=== PATIENT | female | born 1940 | race Caucasian/White ===

== ENCOUNTER 2018-12-15 14:20 | Inpatient (IN) ==
[2018-12-15] MEDS ORDERED: DECADRON IM ONE (15:12)
--- NOTE | 2018-12-15 15:33 | Diag Imaging Result Doc PS360 ---
EXAM: NECK AP AND/OR LAT SOFT TISSUE 12/15/2018 HISTORY: Difficulty swallowing/pain TECHNIQUE: AP and lateral soft tissue neck COMMENT: The epiglottis is apparently enlarged, and there may be thickening of the area epiglottic folds as well. There is narrowing of the subglottic trachea. There is a is a calcified mass apparently within the right thyroid lobe (see CT of the chest dated 08/12/2018.) There are degenerative disc changes in the lower cervical spine. IMPRESSION: Soft tissue swelling in the epiglottis and larynx. The possibility of epiglottitis or neoplastic disease cannot be excluded. Electronically signed by Tyler Ahmadi 12/15/2018 3:30 PM
--- NOTE | 2018-12-15 16:21 | PROVIDER DOCUMENTATION ---
HPI-EENT General - General Chief Complaint: Sore Throat Stated Complaint: SORE THROAT Time Seen by Provider: 12/15/18 14:57 Source: patient Allergies/Adverse Reactions: Patient Allergies Allergy/AdvReac Type Severity Reaction Status Date / Time Sulfa (Sulfonamide Allergy Mild RASH Verified 12/15/18 15:31 Antibiotics) Home Medications: Home Medication List Medication Instructions Recorded Confirmed Last Taken Type Amlodipine [Norvasc] 5 mg PO DAILY 01/05/16 01/05/16 01/04/16 23:00 History 5 Baclofen 10 mg PO BID 01/05/16 01/05/16 01/04/16 23:00 History 10 Calcium Carbonate Chew [Tums] 500 mg PO TID 01/05/16 01/05/16 01/04/16 12:00 History 500 Cholecalciferol (Vit D3) [Vitamin 1,000 tab PO TID 01/05/16 01/05/16 01/04/16 12 :00 History D3] 1000 Cinnamon Bark [Cinnamon] 500 mg PO DAILY 01/05/16 01/05/16 01/04/16 07:00 History 500 Clonidine [Catapres] 0.2 mg PO TID 01/05/16 01/05/16 01/04/16 23:00 History 0.2 Duloxetine [Cymbalta] 60 mg PO BID 01/05/16 01/05/16 01/04/16 23:00 History 60 Esomeprazole [Nexium] 40 mg PO DAILY 01/05/16 01/05/16 01/02/16 History 40 Furosemide 80 mg PO DAILY 01/05/16 01/05/16 01/04/16 07:00 History 80 Glucosamine/D3/Boswellia Purvi 1 each PO BID 01/05/16 01/05/16 01/04/16 23:00 History [Osteo Bi-Flex Caplet] 1 Lamotrigine 100 mg PO BID 01/05/16 01/05/16 01/04/16 23:00 History 100 Levothyroxine [Synthroid] 100 microgm PO DAILY 01/05/16 01/05/16 01/04/16 07:00 History 100 Loratadine [Claritin] 10 mg PO DAILY 01/05/16 01/05/16 01/04/16 07:00 History 10 Losartan [Cozaar] 100 mg PO DAILY 01/05/16 01/05/16 01/04/16 23:00 History 100 Metformin [Glucophage] 500 mg PO BID 01/05/16 01/05/16 01/04/16 23:00 History 500 Carnegie-3 Fatty Acids/Fish Oil [Fish 1 each PO BID 01/05/16 01/05/16 01/04/16 23: 00 History Oil 1,000 mg Softgel] 1000 Potassium Citrate 10 meq PO TID 01/05/16 01/05/16 01/04/16 23:00 History 10 SIMVAstatin [Zocor] 40 mg PO QHS 01/05/16 01/05/16 01/04/16 23:00 History 40 Ubidecarenone [Q-Sorb Co Q-10] 0 mg PO DAILY 01/05/16 01/05/16 01/04/16 07:00 History Vitamin B Complex 1 each PO DAILY 01/05/16 01/05/16 01/04/16 07:00 History 1 - History of Present Illness-EENT General Nature of Presenting Problem: Patient is a 78yo F who presents w/ c/o sore throat, ear pain, low grade fever, cough, and body aches x3 days. Reports she was able to swallow, with pain, but reports this morning it worsened and she is not able to swallow anything without "getting strangled." Patient reports difficulty swallowing even saliva. Reports she was not able to swallow both of her BP medications this morning. States unti l today, she was taking OTC Tylenol and Mucinex without improvement. Patient reports she does not feel like she is getting enough air. Upon examination, patient attempts to swallow a sip of tea she brought from home, but experiences a moderate amount of difficulty and EENT Location: reports: ear (R), ear (L), facial Quality of Pain: reports: tightness Severity: reports: moderate Onset/Duration: reports: 3 days ago Timing: reports: getting worse Prearrival Treatment: Initiated over the counter meds Associated Symptoms: reports: cough, fever, malaise, sore throat. denies: nasal congestion/drainage Locality of Occurance: Home Similar Symptoms Previously?: No Recently seen or treated by another doctor?: No - Ears Ear Problem Symptoms: reports: earache - Throat/Dental Throat/Dental Problem Symptoms: reports: sore throat, throat swelling, unable to swallow Review of Systems - Adult - REVIEW OF SYSTEMS - ADULT Constitutional: reports: see HPI, chills, fever, fatique Eyes: reports: no symptoms reported Ears, Nose, Mouth & Throat: reports: see HPI, ear pain, throat pain, throat swelling Cardiovascular: reports: no symptoms reported. denies: chest pain, palpitations Respiratory: reports: see HPI, cough, shortness of breath Gastrointestinal: reports: no symptoms reported. denies: nausea, vomiting Genitourinary: reports: no symptoms reported Musculoskeletal: reports: no symptoms reported Integumentary: reports: no symptoms reported Neurological: reports: no symptoms reported. denies: dizziness/vertigo, headache/migraines Psychiatric: reports: no symptoms reported Endocrine: reports: no symptoms reported Past History - Adult - PAST MEDICAL HISTORY-ADULT Review of Records: reports: Nursing Assessment Review, Medications Reviewed Major Childhood Illnesses: reports: denies history Cardiovascular: reports: HTN Respiratory: reports: denies history Gastrointestinal: reports: denies history Obstetrical/Gynecological: reports: denies history Genitourinary: reports: other (renal disease) Musculoskeletal: reports: denies history Neurological: reports: denies history Endocrine/Immune: reports: Diabetes Other Conditions: reports: denies history - PRIOR SURGERIES/PROCEDURES Surgical/Procedure History: reports: cholecystectomy, hysterectomy, other (back, foot) - IMMUNIZATION STATUS Childhood Immunizations: See Nurse Assessment Flu Vaccine: See Nurse Assessment - FAMILY HISTORY Family History: reviewed, not pertinent - SOCIAL HISTORY Smoking: quit greater than 1 year Physical Exam- EENT - Physical Exam EENT Initial Vital Signs Reviewed: Yes General Appearance: alert, mild distress. negative: lethargic, slow to respond, obtunded Eye Exam: bilateral eye: normal inspection, PERRL, EOMI Ear Exam: bilateral ear: auricle normal, canal normal, TM normal Nasal Exam: normal inspection Throat Exam: pharynx swelling (mild), other (pt experiences moderate amount of difficulty swallowing drink/saliva). negative: excessive drooling, tongue swollen Neck: full range of motion, supple, normal inspection, lymphadenopathy Respiratory: lungs clear, normal breath sounds, no pleuratic chest pain, no respiratory distress, no accessory muscle use. negative: crackles, rales, rhonchi, stridor, wheezing, retractions, splinting Cardiovascular: regular rate, rhythm, no gallop Lymphatic: cervical node tenderness, enlargement (cervical) Back Exam: normal inspection Extremity: normal range of motion, normal gait Integumentary: normal color, warm/dry. negative: cyanosis, jaundice, pallor Neurologic: grossly normal Psych/Mental Status: normal mood/affect, normal thought content, normal thought process, oriented x 3 Progress - PLAN OF CARE/RESULTS Progress/Plan/Lab Results: Vital Signs - 8 hr 12/15/18 14:32 12/15/18 16:28 12/15/18 16:32 Temperature 98.9 F Pulse Rate 92 H 95 H 89 Respiratory Rate 20 26 H 26 H Blood Pressure 156/79 212/93 196/96 O2 Sat by Pulse Oximetry 93 L 96 94 L 12/15/18 16:36 Temperature Pulse Rate 88 Respiratory Rate 23 Blood Pressure O2 Sat by Pulse Oximetry 97 12/15/18 14:33 Group A Strep Rapid Antigen - Final Throat Orders Category Date Time Status Cardiac Monitoring DIRECTED Care 12/15/18 16:22 Active Oxygen Therapy- ED Nursing DIRECTED Care 12/15/18 16:22 Active NPO Diet 12/15/18 16:[address] NECK W/O CONTRAST [CT] Stat Exams 12/15/18 17:27 Ordered NECK AP AND/OR LAT SOFT TISSUE [RAD] Stat Exams 12/15/18 15:13 Completed BLOOD CULTURE [BLDCUL] Stat Lab 12/15/18 17:19 Ordered CBC WITH ELECTRONIC DIFF [HEME] Stat Lab 12/15/18 17:19 Ordered COMPREHENSIVE METABOLIC PANEL [CHEM] Stat Lab 12/15/18 16:40 Ordered Strep [DIRECT STREP] Stat Lab 12/15/18 14:33 Completed Dexamethasone [Decadron] Med 12/15/18 15:12 Discontinued 10 mg IM NOW ONE Racepinephrine 2.25% [S2 Racepinephrine 2.25%] Med 12/15/18 16:28 Discontinued 1 each INH NOW ONE Sodium Chloride 0.9% Neb [Ns Neb] Med 12/15/18 16:30 Active 5 ml INH DIRECTED Aerosol Treatments Routine Oth 12/15/18 16:29 Completed Aerosol Treatments Stat Oth 12/15/18 16:29 Completed 1552: Soft tissue x-ray demonstrates epiglottitis and tracheal narrowing. Report discussed with Dr. Murry. Patient given 10mg of IM Decadron and ENT paged. 1632: Dr. Page paged. 2531: Dr. Page at bedside. Result Diagrams: 12/15/18 17:10 - XRAY 1 XRAY: Bilateral XRAY Study: other (Soft Tissue Neck) Impression: See EMR Report ([facility] - [address] , [address], [place] [address] [facility] - [address] [place] [address] Department of Imaging Patient: HUNTER ZAPATA Date: 12/15/18MR#: [id number] : 1940DM Status: PRE ERAcct#: [id number] Age/Sex: 78/FRoom/Bed: Loc: ED Ordering Physician: Tiffani Eubanks Family Ph ysician: Jorge Page MD Reason for Procedure: Difficulty swallowing/pain Signed EXAM: NECK AP AND/OR LAT SOFT TISSUE 12/15/2018 HISTORY: Difficulty swallowing/pain TECHNIQUE: AP and lateral soft tissue neck COMMENT: The epiglottis is apparently enlarged, and there may be thickening of the area epiglottic folds as well. There is narrowing of the subglottic trachea. There is a is a calcified mass apparently within the right thyroid lobe (see CT of the chest dated 08/12/2018.) There are degenerative disc changes in the lower cervical spine. IMPRESSION: Soft tissue swelling in the epiglottis and larynx. The possibility of epiglottitis or neoplastic disease cannot be excluded. Electronically signed by Tyler Ahmadi 12/15/2018 3:30 PM 12/15/18 1530 Interpreting Physician: Tyler Ahmadi MD Dictated Date/Time: 12/15/18 1526 cc: Tiffani Eubanks; Jorge Page MD) - CONSULTS/PCP/HOSPITALIST Notification #1 *Consult/PCP/Hospitalist*: MD Camilo Time Discussed: 16:34 Reason/Comments: Epiglottitis/larynx narrowing #2 Consult: DANIS Sales Time Discussed: 17:19 Reason/Comments: Epiglottis enlargement Consult Disposition: other (obtain CT neck, if epiglottis enlarged, notify him) Departure - Departure Date of Disposition Decision: 12/15/18 Time of Disposition Decision: 17:30 DIAGNOSIS: Pharyngeal swelling, Epiglottitis, Tracheal anomaly Disposition: ADMITTED INPATIENT 09 Certified Medical Emergency: Emergent Condition: Good Referrals and Follow-Ups: Jorge Page MD [Primary Care Provider] - - Critical Care Note This patient required my direct & personal management of CC.: No Attestation - Physician/ ALEXX Attestation Patient care was provided by Advanced Practice Provider:: Yes Advanced Practice Provider:: Tiffani Eubanks Advanced Practice Provider documentation review:: The Mid-level provider documentation, treatment plan and medical decision making was reviewed by the physician who agrees with all treatment and medical decision making by the P. The physician spent face to face time with patient:: Yes Advanced Practice Provider documentation review:: Supervising physician onsite and consulted in the evaluation and care of this patient. The physician did have a face to face encounter with the patient.
[2018-12-15] MEDS ORDERED: S2 RACEPINEPHRINE 2.25% INH ONE (16:28)
[2018-12-15] MEDS ORDERED: NS NEB INH SCH (16:30)
[2018-12-15 17:38] LABS: BASO# 0.03 X1000 (0.0-0.2); BASO% 0.2 % (0.0-0.8); EOS# 0.15 X1000 (0.0-0.7); EOS% 0.8 % (0.0-10.0); HEMATOCRIT 39.2 % (37.0-47.0); HEMOGLOBIN 12.8 g/dL (12.0-16.0); IMM GRAN# 0.05 X1000 (0.0-0.04); IMM GRAN% 0.3 % (0.0-0.5); LYMPH# 2.34 X1000 (1.2-3.4); LYMPH% 12.6 % (20.5-51.1); MCH 28.6 PG (27-31); MCHC 32.7 g/dL (33-37); MCV 87.7 FL (81-99); MONO# 0.96 X1000 (0.11-0.59); MONO% 5.2 % (1.7-9.3); MPV 9.4 FL (7.4-10.4); NEUT# 15.06 X1000 (1.4-6.5); NEUT% 80.9 % (42.2-75.2); PLT 333 X1000 (130-400); RBC 4.47 XMIL (4.2-5.4); RDW 15.2 % (11.5-14.5); WBC 18.59 X1000 (4.8-10.8)
[2018-12-15] MEDS ORDERED: CATAPRES-TTS-2 TD ONE (17:39)
[2018-12-15] MEDS ORDERED: VANCOMYCIN IV PER PHARMACY MISC SCH (17:45)
[2018-12-15 17:52] LABS: ALB/GLOB RATIO 1.2; ALBUMIN 4.4 g/dL (3.5-5.0); CALCIUM 10.9 mg/dL (8.8-10.2); CREATININE 1.1 mg/dL (0.5-0.9); POTASSIUM 3.8 mmol/L (3.5-5.1); TOTAL BILIRUBIN 0.41 mg/dL (0.20-1.00)
--- NOTE | 2018-12-15 18:16 | Diag Imaging Result Doc PS360 ---
EXAM: CT NECK W/O CONTRAST 12/15/2018 HISTORY: epiglotitis TECHNIQUE: This exam was performed using automated exposure control, adjustment of mA or kV according to patient size, and/or use of iterative reconstruction technique. COMMENT: There is a 19 mm lobulated nodule adjacent to the hilum in the right upper lobe. This was not present at the time the previous CT of the chest dated 08/16/2018. There is a nodule in the right thyroid lobe with rim calcification as well as large central calcified nodules measuring 2.8 cm in diameter. There are also some calcifications in the left thyroid lobe. There is thickening of the epiglottis particularly on the right with enlargement of the area epiglottic fold. The nasopharynx is unremarkable. The salivary glands are symmetrical in appearance. There are calcifications in the carotid bulbs bilaterally. There is an jugulodigastric node on the right measuring over 13 mm. There is fluid and mucosal thickening in the right sphenoid sinus. IMPRESSION: 1. Right parahilar nodule. The possibility of neoplastic disease cannot be excluded. 2. Thyroid calcifications particularly on the right as described. 3. Thickening of the epiglottis and supraglottic soft tissues. This may be due to infection or neoplasm. Electronically signed by Tyler Ahmadi 12/15/2018 6:14 PM
--- NOTE | 2018-12-15 18:24 | HISTORY AND PHYSICAL ---
PRIMARY CARE PHYSICIAN: Dr. Jorge Page. CHIEF COMPLAINT: Dysphagia and shortness of breath. HISTORY OF PRESENT ILLNESS: A 78-year-old white female with a complicated past medical history presents for evaluation of above-mentioned symptoms. Current history of present illness began on Sunday night. At that time, patient developed right-sided pharyngitis. The patient states she was able to tolerate a p.o. diet. She denied fevers or chills. Since that time, unfortunately patient's symptoms have progressed. Yesterday, patient states she was unable to eat during the day secondary to pain and the sensation of obstruction. The patient states she attempted liquids but unfortunately was forced to vomit the liquids back up. Ultimately, last night patient was able to try a warm soup and tolerated this reasonably well. This morning, unfortunately patient awoke with progression of symptoms. By afternoon, she had noted some shortness of breath associated with her dysphagia. Because of patient's progressive symptoms, she presented to the emergency department for further evaluation and management. Upon arrival, full evaluation was pursued. Patient was found to have a white blood cell count of 18.59. Soft tissue x-ray suggested soft tissue swelling in the epiglottis and larynx. The possibility of epiglottitis or neoplastic disease could not be excluded. Because of patient's progressive and concerning symptoms, patient will be admitted to the ICU for further evaluation and management. Of note, patient denies fevers, chills, cough, congestion, wheezing, stridor, or sick contacts to her knowledge. PAST MEDICAL HISTORY: 1. History of an abnormal electrocardiogram with longstanding poor R-wave progression and right bundle branch block. 2. Abnormal skin examination with multiple actinic keratoses and seborrheic keratoses. 3. Acute cholecystitis status post laparoscopic cholecystectomy in 1998. 4. Chronic anemia secondary to chronic kidney disease. 5. A history of atypical chest pain with negative cardiac evaluations in 2005, 2012 and 2013. 6. Bilateral carpal tunnel syndrome. 7. Chronic kidney disease. 8. Diverticulosis. 9. Depression. 10. Type 2 diabetes. 11. Reflux disease. 12. Hypertension. 13. Hyperlipidemia. 14. History of negative breast biopsies x2 in 2005. 15. Chronic low back pain. 16. History of mild mitral and tricuspid regurgitation. 17. Obstructive sleep apnea. 18. History of a thyroid nodule with negative biopsies. 19. Osteoarthritis. 20. Colonic polyps. 21. Menopause. CURRENT MEDICATIONS: 1. Amlodipine 5 mg daily. 2. B-complex vitamin daily. 3. Baclofen 10 mg twice daily. 4. Cinnamon 500 mg daily. 5. Claritin 10 mg daily as needed. 6. Clonidine 0.2 mg 3 times daily. 7. Coenzyme Q10 100 mg daily. 8. Cymbalta 60 mg twice daily. 9. Fish oil 1000 mg twice daily. 10. Furosemide 80 mg daily. 11. Lamotrigine 100 mg twice daily. 12. Levothyroxine 100 mcg daily. 13. Losartan 100 mg daily. 14. Metformin 500 mg twice daily. 15. Metoprolol ER 25 mg daily. 16. Nexium 40 mg daily. 17. Osteo Bi-Flex twice daily. 18. Potassium citrate 10 mEq 3 times daily. 19. ProAir HFA 1 to 2 puffs every 4-6 hours as needed. 20. Simvastatin 40 mg at bedtime. 21. Tums 3 times daily. 22. Vitamin D3 twice daily. ALLERGIES: Patient states she is allergic to MATHIEU inhibitors which cause a cough, Levaquin which causes asthma/shortness of breath/restless legs syndrome, ramipril which causes a cough, and sulfa which causes asthma and shortness of breath. SOCIAL HISTORY: Patient previously smoked 1/2 pack per day of cigarettes for 10 years. She quit in 1998. She denies alcohol or illicit drug use. 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 She enjoys gardening. She exercises rarely. FAMILY HISTORY: Patient's father passed at age 84 secondary to complications of prostate cancer. Patient's mother passed at age 88 secondary to complications of recurrent urinary tract infections. She has a history of diabetes and hypertension. REVIEW OF SYSTEMS: A 12 point review of systems was performed. Pertinent positives and negatives are noted in history present illness. PHYSICAL EXAMINATION: VITAL SIGNS: Temperature 98.9 degrees, heart rate 89, respirations 26, blood pressure is 196/96. GENERAL: Well nourished, well developed, no acute distress. HEENT: Normocephalic, atraumatic. Pupils equal, round, reactive to light. Extraocular muscles intact. Sclerae anicteric. Dresser conjunctivae. Oral and nasopharynx clear without exudate. No evidence of stridor present. NECK: Supple. No lymphadenopathy. No thyromegaly. No bruits auscultated. CARDIOVASCULAR: Regular rate and rhythm. No significant murmurs, rubs, or gallops. PULMONARY: Clear to auscultation bilaterally. ABDOMEN: Soft, nontender, nondistended. Positive bowel sounds. EXTREMITIES: Moves all extremities well. No significant clubbing, cyanosis, or edema. NEUROLOGIC: Cranial nerves 2-12 grossly intact. Motor and sensory grossly intact. PSYCHOLOGIC: Appropriate. LABORATORY DATA: White blood cell count 8.59, hemoglobin 12.8, hematocrit 39.2, platelet count 333,000. CMP is pending at the time of admission. ASSESSMENT AND PLAN: A 78-year-old white female with a complicated past medical history as noted presents for evaluation of dysphagia and shortness of breath. X-ray soft tissue is concerning for underlying epiglottitis. Patient will be admitted to the hospital for full evaluation and management of this condition. 1. Admit to the ICU. 2. Suspected epiglottitis-in the setting of dysphagia and concerning findings on soft tissue x- ray of the neck, this is the most likely diagnosis. We will refer patient for CT scan of the neck. ENT will be consulted. Patient has been given Decadron and racemic epinephrine. We will provide Rocephin and vancomycin for coverage of possible Haemophilus influenza. We will continue steroids in the form of Solu-Medrol. The patient will be placed in a monitored bed for the possibility of progression requiring mechanical ventilation. With the prolonged course of her disease at this point, I anticipate this will not be likely, however we will be prepared if her condition were to progress. 3. Dysphagia-this likely is a consequence of her epiglottitis. We will treat as above. We will keep patient NPO. We will consider a swallowing evaluation in the morning should her condition demonstrate improvement. As above, ENT has been consulted. 4. Hypertension-patient's blood pressure is uncontrolled at present time. The patient has not been able to tolerate her routine home medications. We will start patient on a clonidine patch. We will determine if further intervention is necessary depending on her response. 5. Chronic kidney disease-patient has longstanding disease. We will follow up on creatinine drawn today. We will start patient on IV fluids. 6. Depression-patient's Cymbalta will be held while she is unable to tolerate p.o. We will resume this once able. 7. Type 2 diabetes-we will place patient on sliding scale insulin. We will hold home medications for now. 8. Reflux disease-we will convert the patient's Nexium to IV. We will place patient on aspiration precautions. 9. Hyperlipidemia-patient's simvastatin will be held. We will resume this once able. 10. Fluid, electrolytes, nutrition. We will monitor electrolytes. Normal saline at 50 mL an hour. NPO. 11. Prophylaxis. Patient will be placed on SCDs. cc: Jorge Page MD
[2018-12-15] MEDS: ROCEPHIN 2 GM in NS 50 ML IV SCH (19:00)
[2018-12-15] MEDS ORDERED: VANCOMYCIN 2 GM in NS 500 ML IV ONE (20:00)
[2018-12-15] MEDS ORDERED: SODIUM CHLORIDE 0.9% INJ SCH (20:16)
[2018-12-15] MEDS ORDERED: ZOFRAN IV PRN (20:16)
--- NOTE | 2018-12-15 20:27 | CONSULTATION ---
DATE OF CONSULTATION: 12/15/2018 A 78-year-old young lady who was admitted with increasing odynophagia and dysphagia. Over the weekend, she has gotten to the point where she can only swallow liquids. She has had a little bit of fever. She has a soft tissue lateral airway film that suggests supraglottitis with maybe even some tracheal involvement. She has a CT that shows thickening of the epiglottis and supraglottic airway with no significant tracheal stenosis. She has received steroid and antibiotic in the emergency room and feels better. She is not having stridor or shortness of breath. PHYSICAL EXAM: Constitutional: Normal fiberoptic exam of the larynx. The right nasal cavity is entered and is normal. The nasopharynx is normal. The scope was advanced into the hypopharynx where the supraglottic larynx is noted to be swollen. There is edema and erythema and there is swelling on both sides of the area epiglottic fold. Inferior to this the cords were noted to be normal. The airway appears normal. Neck: No palpable masses. IMPRESSION: Supraglottitis that is already improved on intravenous medications. This should improve with continued medical treatment. Agree with ICU monitoring tonight. Will see how she is doing tomorrow. We did discuss the possibility of this being angioedema. She is on an ARB but it appears to be more infectious than angioedema. Will discuss with Dr. Page. cc: MD Jorge Vaughn MD
[2018-12-15] MEDS: HUMALOG SUBQ SCH (21:00)
[2018-12-15] MEDS: NEXIUM IV SCH (21:03)
[2018-12-15] MEDS: SOLU-MEDROL IV SCH (21:04)
[2018-12-15] MEDS: NS 1,000 ML IV SCH (21:04)
[2018-12-15] MEDS: DUONEB (A & A) INH SCH (21:07)
[2018-12-16] MEDS: DUONEB (A & A) INH SCH ×4 (03:14→22:41)
[2018-12-16] MEDS: SOLU-MEDROL IV SCH ×3 (04:52→21:19)
[2018-12-16 05:11] LABS: BASO# 0.01 X1000 (0.0-0.2); BASO% 0.1 % (0.0-0.8); HEMATOCRIT 37.3 % (37.0-47.0); HEMOGLOBIN 12.2 g/dL (12.0-16.0); IMM GRAN# 0.05 X1000 (0.0-0.04); IMM GRAN% 0.3 % (0.0-0.5); LYMPH# 0.73 X1000 (1.2-3.4); LYMPH% 3.9 % (20.5-51.1); MCH 28.5 PG (27-31); MCHC 32.7 g/dL (33-37); MCV 87.1 FL (81-99); MONO# 0.25 X1000 (0.11-0.59); MONO% 1.3 % (1.7-9.3); MPV 8.8 FL (7.4-10.4); NEUT# 17.49 X1000 (1.4-6.5); NEUT% 94.4 % (42.2-75.2); PLT 286 X1000 (130-400); RBC 4.28 XMIL (4.2-5.4); WBC 18.53 X1000 (4.8-10.8)
[2018-12-16 05:21] LABS: ALB/GLOB RATIO 0.9; ALBUMIN 3.4 g/dL (3.5-5.0); CALCIUM 10.1 mg/dL (8.8-10.2); POTASSIUM 3.5 mmol/L (3.5-5.1); TOTAL BILIRUBIN 0.24 mg/dL (0.20-1.00); TOTAL PROTEIN 7.2 g/dL (6.3-8.3)
[2018-12-16] MEDS: HUMALOG SUBQ SCH ×4 (06:32→21:30)
--- NOTE | 2018-12-16 12:02 | PROGRESS NOTE ---
DATE: 12/16/2018 SUBJECTIVE: She remains in the emergency room waiting on an ICU bed. She is better. She was able to tolerate liquids and pudding today. OBJECTIVE: Neck: Not tender. Hypopharynx and larynx I did not view with the scope today. IMPRESSION: Generalized improvement with continue medical care. We discussed re-evaluation with scope, which we will do tomorrow. We will discuss with Dr. Page. cc: MD Jorge Vaughn MD
[2018-12-16] MEDS: NS 1,000 ML IV SCH (16:25)
[2018-12-16] MEDS: ROCEPHIN 2 GM in NS 50 ML IV SCH (18:21)
--- NOTE | 2018-12-16 21:13 | PROGRESS NOTE ---
DATE: 12/16/2018 SUBJECTIVE: Upon my arrival this morning, patient noted improvement in her overall condition. She has been treated with IV Rocephin and vancomycin for diagnosis of acute epiglottitis. Patient's breathing has not demonstrated significant compromise. She noted her swallowing and sore throat to be improved. A swallowing evaluation was pursued. The patient was advanced to a liquid diet. During the day, blood culture returned positive for gram-negative rods. This evening, patient is comfortable. She does note improvement in her overall clinical condition. She notes decreased pain. Her energy level is low but improving. She denies shortness of breath, fevers, chills, nausea or vomiting. OBJECTIVE: T-max 98.9 degrees, heart rate 82 to 109, respirations 13 to 32, blood pressure 163 to 201 over 74 to 101.General: Well nourished, well developed, no acute distress. Cardiovascular: Regular rate and rhythm. No significant murmurs, rubs, or gallops. Pulmonary: Clear to auscultation bilaterally. Abdomen: Soft, nontender, nondistended. Positive bowel sounds. Extremities: Moves all extremities well. No significant clubbing, cyanosis, or edema. Dermatologic: Evaluation reveals no evidence of rash. LABORATORY DATA: White blood cell count 18.53, hemoglobin 12.2, hematocrit 37.3, platelet counts 286,000. Sodium 138, potassium 3.5, chloride 101, bicarb 19, BUN 19, creatinine 1.0, glucose 227, calcium 10.1, total bilirubin 0.24, total protein 7.2, albumin 3.4, alkaline phosphatase 85, AST 12, ALT 13. ASSESSMENT AND PLAN: 1. Epiglottitis-clinically, patient has achieved improvement. I appreciate Dr. Sales's consultation. In the setting of bacteremia, we will broaden antibiotic coverage from Rocephin to cefepime. We will continue vancomycin therapy for now. We will follow blood cultures as described below. We will continue steroids, but decrease Solu-Medrol to 40 mg every 8 hours. We will continue to monitor patient in the ICU setting overnight. Should patient's condition continue to improve, we will consider transfer to the CICU or general medicine bed tomorrow. 2. Bacteremia-patient's blood cultures were positive for gram-negative rods. We will continue her current medical regimen with exception of changing Rocephin to cefepime. We will follow cultures and adjust antibiotics as necessary. We will plan to consult Dr. Ferguson in the morning. 3. Dysphagia-patient has achieved some improvement with treatment of her epiglottitis. The patient is tolerating a liquid diet. We will slowly advance as tolerated. 4. Hypertension-patient's blood pressure is significantly elevated despite a clonidine patch. As she is tolerating p.o., we will start amlodipine this evening. We will continue to resume home medications as tolerated. 5. Chronic kidney disease-patient's creatinine today is acceptable. We will continue IV fluids. 6. Depression-patient's Cymbalta has been held. Once patient is tolerating p.o. better, we will plan to resume this. 7. Type 2 diabetes-patient's blood sugars have increased associated with steroid use. We will continue sliding scale insulin. We will plan to resume metformin therapy once able. 8. Reflux disease-we will continue patient on IV Nexium therapy. We will transition to oral Nexium once able. 9. Hyperlipidemia-we will resume patient's simvastatin therapy once able. 10. Disposition-at this point, patient continues to require care home care in a hospital setting. We will plan discharge home once appropriate. cc: Jorge Page MD
[2018-12-16] MEDS: NORVASC PO SCH (21:19)
[2018-12-16] MEDS: NEXIUM IV SCH (21:20)
[2018-12-16] MEDS: MAXIPIME 2 GM in NS 100 ML IV SCH (21:21)
[2018-12-17] MEDS ORDERED: CATAPRES PO ONE (02:30)
[2018-12-17] MEDS ORDERED: NITROGLYCERIN TOP SCH (03:00)
[2018-12-17] MEDS: MAXIPIME 2 GM in NS 100 ML IV SCH ×3 (03:11→21:12)
[2018-12-17] MEDS ORDERED: NITROGLYCERIN TOP PRN (03:26)
[2018-12-17] MEDS: DUONEB (A & A) INH SCH ×4 (03:46→20:01)
[2018-12-17] MEDS: SOLU-MEDROL IV SCH ×2 (05:24→17:26)
[2018-12-17] MEDS: HUMALOG SUBQ SCH ×4 (06:09→21:12)
[2018-12-17] MEDS ORDERED: VANCOMYCIN 1,750 MG in NS 250 ML IV SCH (08:00)
[2018-12-17] MEDS: NORVASC PO SCH (08:18)
[2018-12-17] MEDS: SYNTHROID PO SCH (08:18)
[2018-12-17 08:20] LABS: HEMATOCRIT 36.4 % (37.0-47.0); IMM GRAN% 0.5 % (0.0-0.5); LYMPH# 0.86 X1000 (1.2-3.4); LYMPH% 4.3 % (20.5-51.1); MCH 28.8 PG (27-31); MCV 87.3 FL (81-99); MONO# 0.86 X1000 (0.11-0.59); MONO% 4.3 % (1.7-9.3); MPV 9.4 FL (7.4-10.4); NEUT# 18.38 X1000 (1.4-6.5); NEUT% 90.9 % (42.2-75.2); PLT 334 X1000 (130-400); RBC 4.17 XMIL (4.2-5.4); RDW 15.3 % (11.5-14.5)
[2018-12-17 08:22] LABS: AGAP 13; ALBUMIN 3.8 g/dL (3.5-5.0); ALKALINE PHOSPHATASE 83 U/L (32-104); BUN 24 mg/dL (8-22); CHLORIDE 102 mmol/L (98-107); COSMO 290; CREATININE 0.9 mg/dL (0.5-0.9); ESTIMATED GFR > 60; GLUCOSE 225 mg/dL (70-104); GOT 10 U/L (10-30); GPT 14 U/L (10-36); POTASSIUM 3.8 mmol/L (3.5-5.1); SODIUM 140 mmol/L (136-145); TCO2 25 mmol/L (25-35); TOTAL BILIRUBIN 0.18 mg/dL (0.20-1.00); TOTAL PROTEIN 7.5 g/dL (6.3-8.3)
[2018-12-17 08:44] LABS: BANDS 2 % (0-1); LYMPHS 2 % (21-51); MONO 2 % (1-9); SEGS 92 % (42-75)
[2018-12-17] MEDS ORDERED: CATAPRES PO SCH (09:00)
--- NOTE | 2018-12-17 09:13 | Diag Imaging Result Doc PS360 ---
EXAM: CHEST-PORTABLE INDICATION: shortness of breath TECHNIQUE: One view COMPARISON: 09/04/2017 FINDINGS: There is stable elevation of the right hemidiaphragm. Inspiration is slightly suboptimal. The lungs are grossly clear. There is no discrete pleural fluid collection or pneumothorax. The cardiomediastinal silhouette and central vasculature are grossly unremarkable. IMPRESSION: Slightly low lung volumes. No definite acute pathology, otherwise. Electronically signed by Nain Bauer 12/17/2018 9:11 AM
[2018-12-17] MEDS: LIORESAL PO SCH ×2 (09:24→21:12)
[2018-12-17] MEDS: CATAPRES PO SCH ×3 (09:24→17:27)
[2018-12-17] MEDS: CYMBALTA PO SCH ×2 (09:24→21:12)
[2018-12-17] MEDS: COZAAR PO SCH (09:25)
[2018-12-17] MEDS: LAMICTAL PO SCH ×2 (09:25→21:12)
--- NOTE | 2018-12-17 14:00 | PROGRESS NOTE ---
DATE: 12/17/2018 HISTORY OF PRESENT ILLNESS: The patient is seen and examined. She is in the ICU with bacteremia. She is eating a regular diabetic diet. Her breathing is not labored and she feels much better than she did on admission. PHYSICAL EXAMINATION: On physical exam with fiberoptic scope, the larynx is visualized. The right aryepiglottic fold is still swollen and the arytenoid mucosa is swollen on the right side. There has been marked resolution in the swelling of the epiglottis in the left aryepiglottic fold. There were no other lesions in the larynx. The vocal cords move well and look normal. The airway is very normal. IMPRESSION: Supraglottitis, much improved on intravenous medications. She is tolerating a regular diet. Her airway is not compromised and the swelling has resolved except the right side. This should resolve over the next 24 hours. As far as the supraglottitis goes, she is much improved and can be moved to a regular room and probably discharged when Dr. Page feels it is appropriate from a medical standpoint. At this point, I do not feel that she needs any more serial exams of the larynx. This should resolve with continued medical treatment. We will notify Dr. Page. cc: MD Jorge Vaughn MD [facility]
--- NOTE | 2018-12-17 14:18 | INFECTIOUS DISEASE CONSULT REP ---
DATE: 12/17/2018 CONCLUSION: The patient is admitted to the hospital with epiglottitis. She has a gram-negative milan bacteremia which I think originated from her epiglottitis. The patient has an elevated white blood cell count. I think, in part, this is due to the infection, but most likely it is due in most part to the fact that she is on a high dose of steroids. Because the patient has such an unusual infection in an older person, I am concerned that she could have an immunoglobulin deficiency. RECOMMENDATIONS: I agree with treating the patient with cefepime. I have gone ahead and discontinued vancomycin. I told the patient that because she has metal in her back and because while she is bacteremic, the metal could get infected, that she will require 6 weeks of antibiotics and then most likely following that, she will be put on a low dose of an antibiotic on a chronic basis to try to prevent any infection from flaring up in the spine that has metal in it. I have ordered immunoglobulin levels. DISCUSSION: The patient tells me that approximately 5 days ago, she started having a sore throat and her throat started closing off. She came to the hospital and was diagnosed with having epiglottitis. She is in put in the intensive Care Unit. The patient is feeling much better because of the treatment she has had in the hospital. Her voice is still very husky, but her throat is not as sore and it does not feel like it is closing much at all. Studies thus far [place] [address], hemoglobin 12 and platelet count 334,000. Creatinine is 0.9. GFR is greater than 60. Liver function studies are normal. Blood cultures are growing gram- negative milan. Throat culture for strep is negative. Chest x-ray, she has clear lung yousif. CT scan of the neck shows epiglottis thickening compatible with epiglottitis. PAST MEDICAL HISTORY/REVIEW OF SYSTEMS: Eyes and ears: She does not have any problem seeing or hearing. Neck: See present illness. Respiratory: The patient was not having any trouble breathing until she developed the epiglottitis. Cardiac: No chest pain or palpitations. Gastrointestinal: No nausea, vomiting, or diarrhea. Genitourinary: No dysuria or flank pain. Neurologic: No seizures. No loss of motor or sensory function. Bones, joints, muscles: No swollen joints or muscle aches. Endocrine: Patient is a diabetic and has hypothyroidism. CLINICAL NUTRITIONIST HISTORY: The patient has never been . She has had a hysterectomy and bilateral salpingo-oophorectomy. PREVIOUS HOSPITALIZATIONS AND OPERATIONS: She has had a hysterectomy and bilateral salpingo- oophorectomy, a lumbar laminectomy at which time metal was placed on the spine, removal of skin cancers, breast biopsy, cholecystectomy, and surgery on her foot. MEDICAL DISEASES: Positive for diabetes mellitus, obesity, hypertension, myocardial infarction, and skin cancer, hypothyroidism, hyperlipidemia. INFECTIOUS DISEASE HISTORY: Positive for pneumonia and UTI. FAMILY HISTORY: Positive for diabetes mellitus, hypertension, stroke and cancer. SOCIAL HISTORY: [place] She is . She has dogs as pets. 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 She does not smoke cigarettes, drink alcoholic beverages or abuse drugs. ALLERGIES: She is allergic to sulfa. HOME MEDICATIONS: Include the followin. Norvasc. 2. Baclofen. 3. Clonidine. 4. Cymbalta. 5. Nexium. 6. Furosemide. 7. Lamotrigine. 8. Synthroid. 9. Claritin. 10. Cozaar. 11. Glucophage. 12. Zocor. PHYSICAL EXAMINATION: Vital Signs: Temperature is 99 degrees, pulse 99, respirations 25, blood pressure 180/76. The patient is 5 feet 6 inches tall, weighs 214 pounds. General: This is a somewhat ill-appearing, elderly female. She is in no acute distress. Head, eyes, ears, nose, and throat: She can hear my spoken words and see near objects. She talks with a very husky voice. I looked in her oral cavity and I was not able to see back well to the throat. There was no white coating on her tongue. Neck: No meningismus. Lungs: Clear to auscultation. Cardiovascular: Heart rate is regular. Abdomen: Soft and nontender. Neurologic: The patient is alert. She can move her extremities. There is no tremor. Her sensation is intact to touch. Her memory as regarding her medical history is intact. Integument: No rash noted. cc: MD Jorge Henderson MD
[2018-12-17] MEDS: NS 1,000 ML IV SCH ×2 (15:02→15:06)
[2018-12-17] MEDS: LOVENOX SUBQ SCH (18:52)
--- NOTE | 2018-12-17 20:39 | PROGRESS NOTE ---
DATE: 12/17/2018 SUBJECTIVE: Upon my arrival this morning, the patient stated she was doing reasonably well. The patient did not sleep well secondary to the multiple interruptions while being in the ICU setting. Overnight, her blood pressure remained elevated. I was contacted and the patient was converted from a clonidine patch to oral clonidine. Throughout the day today, the patient states she did reasonably well. Patient has been transferred from the ICU to the CICU. Upon my arrival this evening, the patient was sitting upright in the chair. She states she had ambulated minimal distances with assistance during the day. P.o. intake has improved considerably. She denies fevers, chills, nausea, vomiting, shortness of breath, or chest discomfort. OBJECTIVE: T-max 99 degrees, heart rate 94 to 112, respirations 18 to 26, blood pressure 154 to 191 over 71 to 81.General: Well nourished, well developed, no acute distress. Cardiovascular: Regular rate and rhythm. No significant murmurs, rubs, or gallops. Pulmonary: Clear to auscultation bilaterally. Abdomen: Soft, nontender, nondistended. Positive bowel sounds. Extremities: Moves all extremities well. No significant clubbing, cyanosis, or edema. Dermatologic: Evaluation reveals no evidence of rash. LABORATORY DATA: White blood cell count 20.20, hemoglobin 12.0, hematocrit 36.4, platelet count 334,000. Sodium 140, potassium 3.8, chloride 102, bicarb 25, BUN 24, creatinine 0.9, glucose 225, calcium 11.0. Total bilirubin 0.18, total protein 7.5, albumin 3.8, alkaline phosphatase 83. AST 10, ALT 14. Blood cultures are positive for gram-negative rods. ASSESSMENT AND PLAN: 1. Epiglottitis - I appreciate Dr. Sales's consultation. On repeat evaluation today, significant improvement had occurred. We will continue current medications including cefepime therapy. We will continue to titrate down on her Solu-Medrol. We will treat patient's bacteremia as described below. 2. Bacteremia - This is likely secondary to her epiglottitis. Blood cultures were positive for gram-negative rods. Dr. Ferguson was consulted this morning. Vancomycin was discontinued. Cefepime was continued. Overall, patient is improving clinically. We will determine duration and which antibiotic is most appropriate depending on patient's final blood culture report. 3. Dysphagia - The patient has achieved significant improvement with treatment of her epiglottitis. Her diet has been advanced as tolerated. 4. Hypertension - The patient's blood pressure remains elevated, but is significantly improved from overnight. We will continue her home regimen with the exception of Lasix therapy. We will follow this. 5. Chronic kidney disease - The patient's creatinine is acceptable. We will continue to encourage hydration. 6. Depression/anxiety - The patient's Cymbalta was resumed today. Symptoms are reasonably controlled. 7. Type 2 diabetes - We will continue patient on sliding scale insulin. We will plan to resume metformin in the near future. 8. Reflux disease - We will transition the patient from IV Nexium to oral proton pump inhibitor. 9. Hyperlipidemia - We will continue patient on simvastatin therapy. 10. Pulmonary nodule - Once patient's overall condition has improved, we will plan a repeat evaluation and consider pulmonary consultation. 11. Disposition - At this point, the patient continues to require usp care in a hospital setting. We will plan discharge home once appropriate. cc: Jorge Page MD
[2018-12-17] MEDS: ZOCOR PO SCH (21:12)
[2018-12-18] MEDS: DUONEB (A & A) INH SCH ×5 (03:03→22:42)
[2018-12-18] MEDS: MAXIPIME 2 GM in NS 100 ML IV SCH (04:22)
[2018-12-18] MEDS: SOLU-MEDROL IV SCH ×2 (04:23→16:39)
[2018-12-18 05:58] LABS: HEMATOCRIT 32.8 % (37.0-47.0); HEMOGLOBIN 10.7 g/dL (12.0-16.0); IMM GRAN# 0.07 X1000 (0.0-0.04); IMM GRAN% 0.5 % (0.0-0.5); LYMPH# 0.88 X1000 (1.2-3.4); MCH 28.6 PG (27-31); MCHC 32.6 g/dL (33-37); MCV 87.7 FL (81-99); MONO# 0.78 X1000 (0.11-0.59); MONO% 5.4 % (1.7-9.3); MPV 9.6 FL (7.4-10.4); NEUT# 12.83 X1000 (1.4-6.5); NEUT% 88.1 % (42.2-75.2); PLT 330 X1000 (130-400); RBC 3.74 XMIL (4.2-5.4); RDW 15.2 % (11.5-14.5); WBC 14.56 X1000 (4.8-10.8)
[2018-12-18 06:07] LABS: AGAP 13; ALB/GLOB RATIO 1.1; ALBUMIN 3.4 g/dL (3.5-5.0); ALKALINE PHOSPHATASE 69 U/L (32-104); BUN 32 mg/dL (8-22); CHLORIDE 103 mmol/L (98-107); COSMO 287; CREATININE 0.9 mg/dL (0.5-0.9); ESTIMATED GFR > 60; GLUCOSE 185 mg/dL (70-104); GOT 9 U/L (10-30); GPT 12 U/L (10-36); POTASSIUM 3.9 mmol/L (3.5-5.1); SODIUM 138 mmol/L (136-145); TCO2 22 mmol/L (25-35); TOTAL BILIRUBIN 0.18 mg/dL (0.20-1.00); TOTAL PROTEIN 6.4 g/dL (6.3-8.3)
[2018-12-18] MEDS: HUMALOG SUBQ SCH ×4 (06:23→21:02)
[2018-12-18] MEDS: NEXIUM PO SCH (06:23)
--- NOTE | 2018-12-18 06:55 | INFECTIOUS DISEASE PROGRESS NO ---
DATE: 12/18/2018 SUBJECTIVE: The patient has an epiglottitis and supraglottitis with an associated gram-negative milan bacteremia. MEDICATIONS: The patient is on cefepime. PHYSICAL EXAMINATION: Vital Signs: Temperature is 98 degrees, pulse 73, respirations 20, blood pressure 153/64. General: This is an obese, elderly female. She is in no acute distress. HEENT: She can hear my spoken words and see near objects. I did not see any erythema or white patches in her mouth. She does talk with a deep, husky voice. Neck: No pain with movement of her neck. Lungs: Clear to auscultation. Cardiovascular: Heart rate is regular. Abdomen: Soft and nontender. Neurologic: The patient is alert. She can move her extremities. There is no tremor. IMAGING AND LABORATORY DATA: There is no new x-ray for today. The patient's laboratory studies show a CBC with a white count down to 14,560, hemoglobin 10.7, platelet count 330,000. IgA is 221 and IgG is 787. Both of these are normal values. The blood culture is growing a gram-negative milan. ASSESSMENT AND PLAN: The patient has epiglottitis and supraglottitis. My plan is to continue cefepime pending the results of the patient's blood culture. I am going to go ahead today and order repeat blood cultures. The patient has metal on her spine, and this metal could have become infected while the patient is bacteremic. Because of this, I plan to treat the patient for 6 weeks with an antibiotic at a regular dose, and then put the patient on a low dose of an oral antibiotic to prevent any infection on the metal from flaring up. COMORBIDITIES: She is elderly. She is a diabetic also. cc: MD Jorge Henderson MD
[2018-12-18] MEDS ORDERED: UROCIT-K PO SCH (09:00)
[2018-12-18] MEDS ORDERED: LASIX PO SCH (09:00)
[2018-12-18] MEDS: CYMBALTA PO SCH ×2 (09:12→20:55)
[2018-12-18] MEDS: LAMICTAL PO SCH ×2 (09:13→20:55)
[2018-12-18] MEDS: SYNTHROID PO SCH (09:13)
[2018-12-18] MEDS: NORVASC PO SCH (09:14)
[2018-12-18] MEDS: LIORESAL PO SCH ×2 (09:14→20:55)
[2018-12-18] MEDS: CATAPRES PO SCH ×3 (09:14→16:40)
[2018-12-18] MEDS: VITAMIN D PO SCH ×3 (09:40→16:39)
[2018-12-18] MEDS: TUMS PO SCH ×3 (09:41→16:39)
[2018-12-18] MEDS: COENZYME Q10 PO SCH (09:41)
[2018-12-18] MEDS: VICON-C PO SCH (09:41)
[2018-12-18] MEDS: GLUCOPHAGE PO SCH ×2 (10:07→16:39)
--- NOTE | 2018-12-18 10:10 | INFECTIOUS DISEASE PROGRESS NO ---
DATE: 12/18/2018 ADDENDUM: The patient's blood culture is growing Haemophilus influenzae. I have switched the patient from cefepime to Rocephin 2 g IV daily. When the patient goes home, I would suggest switching her to Levaquin 500 mg daily to complete a 6-week course of antibiotics because the patient's metal in her spine may have become infected while the patient was bacteremic. Following the 6-week course of antibiotics, I suggest switching the patient to Ceftin 500 mg p.o. daily on a chronic basis in order to prevent any infection on the metal from becoming active. cc: MD Jorge Henderson MD MTDD
[2018-12-18] MEDS: COZAAR PO SCH (10:14)
[2018-12-18] MEDS: ROCEPHIN 2 GM in NS 50 ML IV SCH (11:32)
--- NOTE | 2018-12-18 11:52 | EKG Report ---
Test Performed on : 12/18/2018 11:47:38 AM Test Reason : Rhythm change Blood Pressure : / mmHG Vent. Rate : 100 BPM Atrial Rate : 100 BPM P-R Int : 172 ms QRS Dur : 140 ms QT Int : 368 ms P-R-T Axes : 038 -23 -23 degrees QTc Int : 474 ms Normal sinus rhythm. Right bundle branch block Inferior infarct (cited on or before 20-OCT-2009) Abnormal ECG When compared with ECG of 20-OCT-2009 22:21, Right bundle branch block is now present Confirmed by Jorge Page MD ([id number]) on 12/19/2018 7:37:58 AM
[2018-12-18] MEDS: UROCIT-K PO SCH ×2 (12:02→16:49)
[2018-12-18 13:24] LABS: FREE T4 0.96 ng/dL (0.93-1.70); TSH 0.08 uIUmL (0.27-4.20)
[2018-12-18] MEDS ORDERED: 1/2 NS 500 ML IV ONE (14:58)
--- NOTE | 2018-12-18 15:27 | CONSULTATION ---
DATE OF CONSULTATION: 12/18/2018 IMPRESSION: 1. Apparent episode of wide complex tachycardia, possibly ventricular tachycardia that occurred while patient was off oxygen and not long after she went to the bathroom to start brushing her teeth. Patient symptomatic with sense of weakness and some diaphoresis, but no chest pain. 2. Currently admitted with epiglottitis with culture showing Haemophilus influenzae in blood cultures. 3. Nonobstructive coronary atherosclerosis by coronary angiography performed 07/19/2018. 4. Hypertension requiring multi-drug regimen for control. 5. Chronic kidney disease. 6. Type 2 diabetes mellitus. 7. Hyperlipidemia. 8. Obesity. RECOMMENDATIONS: 1. Follow up cardiac enzymes. 2. Continue patient on oxygen monitoring for hypoxemia. 3. Repeat echocardiography. 4. Add carvedilol to help with blood pressure and add beta blockade. HISTORY: This 78-year-old white female with past history of nonobstructive coronary atherosclerosis on coronary angiography done on 07/19/2018, hypertension, requiring multi-drug regimen, obesity, type 2 diabetes mellitus, and hyperlipidemia was admitted several days ago with several days of cough, sore throat, and shortness of breath. She has been found to have epiglottitis. Blood cultures grew Haemophilus influenzae. She is on parenteral antibiotics, and also received steroids for this. She has been on supplemental oxygen. She has begun to stabilize. She got up today to go to the bathroom to brush her teeth. She took off her oxygen, and went to the bathroom. She felt some weakness. Nursing staff was in the room, and was looking at her monitor which appeared to show an abnormal rhythm. She was placed back in the bed. She felt she had some diaphoresis, and felt significantly lightheaded. While monitoring the bed, the bedside monitor appeared to demonstrate wide complex tachycardia possibly ventricular tachycardia. Her telemetry strips show considerable amount of artifact. She had no chest pain with this. Cardiology was consulted. PAST MEDICAL HISTORY: 1. Nonobstructive coronary atherosclerosis by coronary angiography 07/19/2018. 2. Longstanding hypertension requiring multiple drugs for control. 3. Type 2 diabetes mellitus. 4. Obesity. 5. Chronic kidney disease. 6. Type 2 diabetes mellitus. 7. Obstructive sleep apnea. 8. History of colonic polyps. 9. Status post laparoscopic cholecystectomy and multiple breast biopsies, which proved to be benign. She also has history of thyroid nodule with negative breast biopsy. ALLERGIES: She is allergic or intolerant to sulfa. CURRENT MEDICATIONS: As listed. SOCIAL HISTORY: She is . She has history of previous cigarette use more than 10 years ago. She does not use alcohol. She is under a fair amount of stress taking care of her granddaughter age 5 with Down's syndrome and her grandson age 7 as they were placed with her and her as her mother was not felt able to care for them. FAMILY HISTORY: Negative for premature coronary disease. REVIEW OF SYSTEMS: Pulmonary: Noteworthy for some shortness of breath and sore throat as well as cough. Gastrointestinal: Negative. Constitutional: Noncontributory. She is not aware of any fevers. Remainder of Review of Systems negative/noncontributory with 14 total systems reviewed. PHYSICAL EXAMINATION: General: This is an obese older white female in an no distress on supplemental oxygen. She is somewhat hoarse. Vital signs: Blood pressure 182/78, heart rate 101 with ECG monitor showing sinus rhythm and right bundle branch block. HEENT: Extraocular movements appear intact. Mucous membranes are moist. Neck: Supple without jugular venous distention. No carotid bruits. There is no stridor. Chest: Clear to auscultation. Cardiac: Exam reveals a regular rate and rhythm without appreciable murmur or gallop. Abdomen: Soft. Bowel sounds are normal. Extremities: Without edema. Neurologic: Reveals her to be alert and fully oriented. Speech is fluent. She moves all 4 extremities equally well. Skin: Warm and dry. Psychiatric: Exam reveals her mood to be appropriate. PERTINENT DATA: Twelve lead EKG demonstrates sinus rhythm at 100 beats per minute. Right bundle branch block and nondiagnostic inferior Q-waves. Review of telemetry demonstrates sinus tachycardia with heart rate over 120 beats per minute prior to episode of wide complex tachycardia. There was considerable artifact. LABORATORY DATA: Includes a white blood cell count of 14.56, hematocrit 32.8 hemoglobin 10.7, platelet count 330,000. Sodium 138, potassium 3.9, chloride 103, carbon dioxide 22, BUN 32, creatinine 0.9. Magnesium 1.9. Troponin T less than 0.01. TSH 0.08, free T4 0.96. cc: MD Jorge Coles MD
[2018-12-18] MEDS: LOVENOX SUBQ SCH (16:39)
[2018-12-18] MEDS: COREG PO SCH (20:55)
[2018-12-18] MEDS: ZOCOR PO SCH (20:55)
--- NOTE | 2018-12-18 21:11 | PROGRESS NOTE ---
DATE: 12/18/2018 SUBJECTIVE: Upon my arrival this morning, the patient stated she was continuing to feel much better. Blood cultures returned positive for Haemophilus influenzae. Physical therapy was consulted. Activity was encouraged. In mid morning, I was contacted secondary to a change in rhythm. Telemetry was consistent with a wide-complex tachycardia, possibly ventricular tachycardia. This was nonsustained, but lasted 40 beats. The patient had associated diaphoresis and weakness. Cardiology was consulted. This afternoon, patient states she is feeling much better. She denies fevers, chills, nausea, and vomiting. Swallowing continues to improve with antibiotics. With the positive blood culture, patient's cefepime was changed to Rocephin. OBJECTIVE: Vital Signs: T-max 98.4, heart rate 73 to 106, respirations 16 to 21, blood pressure 155 to 211 over 75 to 83. General: Well nourished, well developed, no acute distress. Cardiovascular: Slightly tachycardic. Regular rhythm. No significant murmurs, rubs, or gallops. Pulmonary: Clear to auscultation bilaterally. Abdomen: Soft, nontender, nondistended. Positive bowel sounds. Extremities: Moves all extremities well. No significant clubbing, cyanosis, or edema. Dermatologic: Evaluation reveals no evidence of rash. LABORATORY DATA: White blood cell count 14.56, hemoglobin 10.7, hematocrit 32.8, platelet count 330,000. Sodium 138, potassium 3.9, chloride 122, BUN 32, creatinine 0.9, glucose 185, calcium 10.0. Magnesium 1.9, total bilirubin 0.18, total protein 6.4, albumin 3.4, alkaline phosphatase 69, AST 9, ALT 12. TSH 0.08, free T4 0.96. ASSESSMENT AND PLAN: 1. Epiglottitis - I appreciate Dr. Sales's consultation. I agree with changing from cefepime to Rocephin. At discharge, we will convert to levofloxacin due for a total of 6 weeks. Thereafter, Dr. Ferguson has suggested Ceftin 500 mg daily for suppression. 2. Bacteremia - as above, patient's blood cultures grew Haemophilus influenzae. The patient is being treated with Rocephin therapy. Because of lumbar spine hardware, patient will be treated with levofloxacin at discharge for 6 weeks followed by Ceftin 500 mg daily thereafter. 3. Dysphagia - patient has achieved significant improvement. This likely is a consequence of her epiglottitis. 4. Possible ventricular tachycardia - this was nonsustained, but prolonged at 40 beats. The patient was symptomatic with diaphoresis, shortness of breath and weakness. I appreciate Dr. Lin's consultation. We will initiate Coreg therapy. We will follow this. 5. Hypertension - patient's blood pressure remains elevated, but is improving. We will continue current regimen for now. 6. Chronic kidney disease - the patient's creatinine remains stable. 7. Depression/anxiety - we will continue patient on Cymbalta therapy. 8. Type 2 diabetes - we will continue patient on sliding-scale insulin. We will plan to resume metformin in the near future. 9. Reflux disease - we will continue patient on oral Nexium. We will encourage aspiration precautions. 10. Hyperlipidemia - we will continue simvastatin therapy. 11. Pulmonary nodule - once patient's overall condition has improved, we will plan for pulmonary consultation. 12. Suppressed TSH - this certainly could be reactive secondary to her current condition. Free T4 is within normal limits. We will review her outpatient TSH levels and determine if decreasing therapy is appropriate. 13. Disposition - at this point, patient continues to require detention care in a hospital setting. We will plan discharge home once appropriate. cc: Jorge Page MD
[2018-12-19] MEDS: DUONEB (A & A) INH SCH ×4 (04:00→22:06)
[2018-12-19] MEDS: SOLU-MEDROL IV SCH (05:16)
[2018-12-19] MEDS: NEXIUM PO SCH (06:13)
[2018-12-19] MEDS: HUMALOG SUBQ SCH ×5 (06:13→20:50)
--- NOTE | 2018-12-19 07:01 | INFECTIOUS DISEASE PROGRESS NO ---
DATE: 12/19/2018 I have ordered repeat blood cultures for the patient today. Before the patient can be discharged on oral Levaquin, her repeat blood cultures will need to be sterile at the 48-hour reading. I am signing off on the patient's case, but I am available to see her on a p.r.n. basis. cc: MD Jorge Henderson MD
[2018-12-19] MEDS ORDERED: MIRALAX PO ONE (08:51)
[2018-12-19] MEDS: UROCIT-K PO SCH ×3 (09:32→16:18)
[2018-12-19] MEDS: COENZYME Q10 PO SCH (09:32)
[2018-12-19] MEDS: COZAAR PO SCH (09:32)
[2018-12-19] MEDS: CYMBALTA PO SCH ×2 (09:32→20:50)
[2018-12-19] MEDS: VICON-C PO SCH (09:32)
[2018-12-19] MEDS: COREG PO SCH ×2 (09:33→20:50)
[2018-12-19] MEDS: TUMS PO SCH ×3 (09:33→16:18)
[2018-12-19] MEDS: NORVASC PO SCH (09:33)
[2018-12-19] MEDS: GLUCOPHAGE PO SCH ×2 (09:33→16:18)
[2018-12-19] MEDS: LAMICTAL PO SCH ×2 (09:33→20:50)
[2018-12-19] MEDS: VITAMIN D PO SCH ×3 (09:33→16:18)
[2018-12-19] MEDS: CATAPRES PO SCH ×3 (09:33→20:50)
[2018-12-19] MEDS: ROCEPHIN 2 GM in NS 50 ML IV SCH (09:33)
[2018-12-19] MEDS: LIORESAL PO SCH ×2 (09:33→20:50)
[2018-12-19] MEDS: SYNTHROID PO SCH (09:33)
[2018-12-19] MEDS ORDERED: 1/2 NS 1,000 ML IV ONE (14:35)
[2018-12-19] MEDS: LOVENOX SUBQ SCH (16:18)
[2018-12-19] MEDS ORDERED: SOLU-MEDROL IV SCH (17:00)
--- NOTE | 2018-12-19 18:48 | CARDIOLOGY PROGRESS NOTE ---
DATE: 12/19/2018 SUBJECTIVE: Patient relates some feeling of weakness and lightheadedness when she got up out of bed earlier today. She has had no chest discomfort. OBJECTIVE: Blood pressure 197/98, heart rate 79, oxygen saturation 98%. There is no significant jugular vein distention.Chest: Clear to auscultation. Cardiac: Regular rate and rhythm without appreciable murmur or gallop. Extremities: Without edema. There are some chronic venous stasis changes. IMPRESSION: 1. Apparent episode of wide-complex tachycardia. Patient continues in sinus rhythm without further arrhythmia. She had fairly recent evaluation with coronary angiography, which demonstrated no significant coronary obstructive lesions, and she has normal left ventricular ejection fraction. 2. Currently admitted with epiglottitis due to Haemophilus influenzae. 3. Hypertension with blood pressure elevated, despite current regimen. 4. Chronic kidney disease. 5. Type 2 diabetes mellitus. 6. Hyperlipidemia. 7. Obesity. RECOMMENDATIONS: 1. Additional intravenous hydration given some tendency for postural tachycardia. 2. Increase Coreg. cc: MD Jorge Coles MD
[2018-12-19] MEDS: ZOCOR PO SCH (20:50)
--- NOTE | 2018-12-20 00:59 | PROGRESS NOTE ---
DATE: 12/19/2018 SUBJECTIVE: Patient was originally seen this morning. At that time, patient was resting in bed. She notes having rested reasonably well overnight. Throughout the day today, patient did attempt to increase her activity. Unfortunately, upon minimal exertion in the restroom, she became quite fatigued and weak. She was assisted back to her bed. The patient did walk with physical therapy with reasonable results. Her p.o. intake is adequate. She denies fevers, chills, nausea, vomiting, shortness of breath, or chest discomfort. OBJECTIVE: Vital signs: T-max 98.2 degrees, heart rate 79 to 102, respirations 15 to 26, blood pressure 166 to 197/82 to 98. General: Chronically ill appearing, no acute distress. Cardiovascular: Regular rate and rhythm. No significant murmurs, rubs, or gallops. Pulmonary: Clear to auscultation bilaterally. Abdomen: Soft, nontender, nondistended. Positive bowel sounds. Extremities: Moves all extremities well. No significant clubbing, cyanosis, or edema. Dermatologic: Evaluation reveals no evidence of rash. LABORATORY DATA: None. ASSESSMENT AND PLAN: 1. Epiglottitis--appreciate Dr. Sales's consultation. We will continue patient on Rocephin while hospitalized with plans to transition to levofloxacin as an outpatient. Symptoms are improving. 2. Bacteremia--cultures are positive for a Haemophilus influenza. She is currently being treated with Rocephin therapy. We will plan 6 weeks of levofloxacin as an outpatient, followed by Ceftin 500 mg daily there after. She is afebrile currently. 3. Dysphagia--patient has achieved improvement with treatment of epiglottitis. 4. Possible ventricular tachycardia--I appreciate Dr. Lin's consultation. There has been no further episodes. Carvedilol therapy was added. 5. Hypertension--patient's blood pressure remains elevated despite medical intervention. We will continue to titrate medications as necessary. 6. Chronic kidney disease--patient's creatinine remains stable as of yesterday. We will check labs in the morning. 7. Depression/anxiety--we will continue Cymbalta therapy. 8. Type 2 diabetes--we will continue patient on sliding scale insulin. 9. Reflux disease--we will continue patient on oral Nexium. 10. Hyperlipidemia--we will continue simvastatin therapy. 11. Pulmonary nodule--once patient's bacteremia has been treated, we will plan a full evaluation of the pulmonary nodule. 12. Suppressed TSH--question is raised whether this is reactive. For now, we will continue her current regimen. 13. Profound weakness--unfortunately, patient is having difficulty with just ambulating to the restroom and brushing her teeth. This raises concern as to her functional status at home. We will consider a referral for rehabilitation. 14. Disposition--at this point, patient continues to require jail care in a hospital setting. We will plan discharge home once appropriate. cc: Jorge Page MD
[2018-12-20] MEDS: DUONEB (A & A) INH SCH ×4 (04:17→23:11)
[2018-12-20 05:44] LABS: BASO# 0.05 X1000 (0.0-0.2); BASO% 0.4 % (0.0-0.8); EOS# 0.02 X1000 (0.0-0.7); EOS% 0.1 % (0.0-10.0); HEMATOCRIT 36.7 % (37.0-47.0); HEMOGLOBIN 12.2 g/dL (12.0-16.0); IMM GRAN# 0.73 X1000 (0.0-0.04); IMM GRAN% 5.4 % (0.0-0.5); LYMPH# 2.11 X1000 (1.2-3.4); LYMPH% 15.5 % (20.5-51.1); MCH 28.4 PG (27-31); MCHC 33.2 g/dL (33-37); MCV 85.3 FL (81-99); MONO% 8.8 % (1.7-9.3); MPV 9.3 FL (7.4-10.4); NEUT# 9.46 X1000 (1.4-6.5); NEUT% 69.8 % (42.2-75.2); PLT 378 X1000 (130-400); RDW 14.7 % (11.5-14.5); WBC 13.57 X1000 (4.8-10.8)
[2018-12-20 05:55] LABS: ALB/GLOB RATIO 1.3; ALBUMIN 3.6 g/dL (3.5-5.0); CALCIUM 10.9 mg/dL (8.8-10.2); POTASSIUM 4.1 mmol/L (3.5-5.1); TOTAL BILIRUBIN 0.15 mg/dL (0.20-1.00); TOTAL PROTEIN 6.4 g/dL (6.3-8.3)
[2018-12-20 06:00] LABS: LYMPHS 14 % (21-51); MONO 6 % (1-9); SEGS 76 % (42-75)
[2018-12-20] MEDS: HUMALOG SUBQ SCH ×4 (06:30→21:49)
[2018-12-20] MEDS: NEXIUM PO SCH (06:30)
[2018-12-20] MEDS: PREDNISONE PO SCH (08:16)
[2018-12-20] MEDS: GLUCOPHAGE PO SCH ×2 (08:16→16:59)
[2018-12-20] MEDS: UROCIT-K PO SCH ×3 (08:16→16:59)
[2018-12-20] MEDS: LAMICTAL PO SCH ×3 (08:17→21:49)
[2018-12-20] MEDS: COENZYME Q10 PO SCH (08:17)
[2018-12-20] MEDS: COREG PO SCH ×2 (08:17→13:35)
[2018-12-20] MEDS: COZAAR PO SCH (08:17)
[2018-12-20] MEDS: CYMBALTA PO SCH ×3 (08:17→21:49)
[2018-12-20] MEDS: CATAPRES PO SCH (08:17)
[2018-12-20] MEDS: LIORESAL PO SCH ×3 (08:17→21:49)
[2018-12-20] MEDS: NORVASC PO SCH (08:17)
[2018-12-20] MEDS: SYNTHROID PO SCH (08:17)
[2018-12-20] MEDS: VITAMIN D PO SCH ×3 (08:17→16:59)
[2018-12-20] MEDS: VICON-C PO SCH (08:17)
[2018-12-20] MEDS: TUMS PO SCH ×3 (08:17→16:59)
--- NOTE | 2018-12-20 10:28 | Diag Imaging Result Doc PS360 ---
CT THORAX W/O CONTRAST - 12/20/2018 INDICATION: Pulmonary nodule COMPARISON: 08/12/2018 FINDINGS: There is no adenopathy. Moderate vascular disease of the aorta and coronary arteries. Heart size is normal. Stable left adrenal gland nodule. This measures 3 x 2.1 cm. Stable linear atelectasis in the lung bases. Stable small calcified granulomas bilaterally. There is some hazy infiltrate centrally in the right upper lobe. The airways are all clear. There are moderate degenerative changes of the spine. No acute or suspicious bony lesion. IMPRESSION: 1. Small focal hazy infiltrate in the right upper lobe most compatible with pneumonia. Clinical treatment recommended. 2. Stable left adrenal gland nodule. This exam was performed using automated exposure control, adjustment of mA or kV according to patient size, and/or use of iterative reconstruction technique Electronically signed by Brian Espinoza 12/20/2018 10:25 AM
[2018-12-20] MEDS: ROCEPHIN 2 GM in NS 50 ML IV SCH (10:52)
[2018-12-20] MEDS: MIRALAX PO PRN ×2 (13:35→19:58)
[2018-12-20] MEDS: LOVENOX SUBQ SCH (17:02)
[2018-12-20] MEDS: ZOCOR PO SCH ×2 (19:57→21:49)
--- NOTE | 2018-12-20 20:01 | PROGRESS NOTE ---
DATE: 12/20/2018 SUBJECTIVE: The patient reports feeling progressively better. She denies any chest discomfort or shortness of breath. OBJECTIVE: Vital signs: Blood pressure 162/82. Heart rate 78. Oxygen saturation 98%. Neck: There is no significant jugular venous distention. Chest: Clear to auscultation. Cardiac Exam: Reveals a regular rate and rhythm without appreciable murmur or gallop. Extremities: There is no evidence of peripheral edema. LABORATORY DATA: Includes a white blood cell count 13.57, hematocrit 36.7, hemoglobin 12.2, platelet count 378,000. Sodium 139, potassium 4.1, chloride 100, carbon dioxide 28, BUN 33, creatinine 1.0, glucose 145. IMPRESSION: 1. Recent apparent episode of wide complex tachycardia without recurrence. Patient continues in sinus rhythm without further arrhythmia. She had fairly recent evaluation with coronary angiography which demonstrated no significant coronary obstructive lesions and normal left ventricular ejection fraction. 2. Currently admitted with epiglottitis due to Haemophilus influenzae. 3. Hypertension. Blood pressure mildly elevated on current regimen. 4. Chronic kidney disease. 5. Type 2 diabetes mellitus. 6. Hyperlipidemia. 7. Obesity. 8. Venous insufficiency in the lower extremities. RECOMMENDATIONS: 1. Increase Coreg dose. 2. Discontinue clonidine. 3. If additional antihypertensive affect as needed, consider adding thiazide diuretic. 4. I will plan on seeing her further on an as needed basis. cc: MD Jorge Coles MD
--- NOTE | 2018-12-20 21:51 | PROGRESS NOTE ---
DATE: 12/20/2018 SUBJECTIVE: Upon my arrival this morning, patient stated she had a reasonable night. Throughout the day today, patient did walk with physical therapy. Her energy level is improving. She continues to have some shortness of breath with exertion. She denies fevers, chills, nausea, vomiting, or chest discomfort. P.o. intake is adequate. Today, a CT scan of her chest was performed for further evaluation of pulmonary nodule. CT scan suggested small focal hazy infiltrate in the right upper lobe most compatible with pneumonia. Stable left adrenal gland nodule was identified. OBJECTIVE: T-max 98.1 degrees, heart rate 85 to 95, respirations 13 to 18, blood pressure 158 to 197 over 82 to 95.General: Well-nourished, well-developed, chronically ill-appearing, no acute distress. Cardiovascular: Regular rate and rhythm. No significant murmurs, rubs, or gallops. Pulmonary: Clear to auscultation bilaterally. Abdomen: Soft, nontender, nondistended. Positive bowel sounds. Extremities: Moves all extremities well. No significant clubbing, cyanosis, or edema. Dermatologic: Evaluation reveals no evidence of rash. LABORATORY DATA: White blood cell count 13.57, hemoglobin 12.2, hematocrit 36.7, platelet count 378,000. Sodium 139, potassium 4.1, chloride 100, bicarb 28, BUN 33, creatinine 1.0, glucose 145, calcium 10.9, total bilirubin 0.15, total protein 6.4, albumin 3.6, alkaline phosphatase 71, AST 13, ALT 17. ASSESSMENT AND PLAN: 1. Epiglottitis- I appreciate Dr. Sales's consultation. With Rocephin therapy, patient has achieved improvement in symptoms. We will continue treatment of associated bacteremia as described below. 2. Bacteremia-cultures tested positive for Haemophilus influenzae. Patient is treated with Rocephin therapy. We will continue this while hospitalized. We will convert to levofloxacin for total of 6 weeks as an outpatient followed by Ceftin 500 mg daily thereafter. Overall, clinically patient is improving. 3. Dysphagia-patient has achieved resolution with treatment of her epiglottitis. 4. Possible ventricular tachycardia-I appreciate Dr. Lin's consultation. Carvedilol therapy was added. She has not experienced an additional episode since that time. 5. Hypertension-the patient's blood pressure remains elevated despite significant medical intervention. This is, however, improving with decreasing steroids. We will continue her current regimen for now. We will titrate as necessary. 6. Chronic kidney disease-patient's creatinine remains stable today. 7. Depression/anxiety-we will continue Cymbalta therapy. Symptoms are controlled. 8. Type 2 diabetes-we will continue patient on sliding scale insulin. 9. Hyperlipidemia-we will continue simvastatin therapy. 10. Pulmonary nodule-CT scan suggest this to be focal pneumonia rather than a true nodule. We will continue treatment with Rocephin therapy. Clinically, this is improving. 11. Suppressed TSH-the question is raised whether this is reactive or if patient has iatrogenic hyperthyroidism. At this point, she is asymptomatic. We will continue her current regimen for now. 12. Profound weakness-we discussed this in detail. While she has demonstrated improvement, at this point, she is unable to care for herself at home. We will continue physical therapy through the weekend. We will reevaluate patient on Sunday. At that point, we will need to consider rehabilitation. If the patient shows significant improvement over the weekend, we will consider discharge home. 13. Disposition-at this point, patient continues to require retirement care in a hospital setting. We will plan discharge home once appropriate. cc: Jorge Page MD
[2018-12-21] MEDS: COREG PO SCH ×2 (00:45→13:11)
[2018-12-21] MEDS: HUMALOG SUBQ SCH ×4 (06:21→20:38)
[2018-12-21] MEDS: DUONEB (A & A) INH SCH ×4 (06:31→23:02)
[2018-12-21] MEDS: NEXIUM PO SCH (06:37)
[2018-12-21] MEDS: VITAMIN D PO SCH ×3 (08:34→17:41)
[2018-12-21] MEDS: VICON-C PO SCH (08:34)
[2018-12-21] MEDS: PREDNISONE PO SCH (08:34)
[2018-12-21] MEDS: LIORESAL PO SCH ×3 (08:34→22:04)
[2018-12-21] MEDS: LAMICTAL PO SCH ×3 (08:34→22:03)
[2018-12-21] MEDS: GLUCOPHAGE PO SCH ×2 (08:34→17:41)
[2018-12-21] MEDS: UROCIT-K PO SCH ×3 (08:34→17:41)
[2018-12-21] MEDS: COZAAR PO SCH (08:34)
[2018-12-21] MEDS: TUMS PO SCH ×3 (08:34→17:41)
[2018-12-21] MEDS: NORVASC PO SCH (08:34)
[2018-12-21] MEDS: SYNTHROID PO SCH (08:34)
[2018-12-21] MEDS: COENZYME Q10 PO SCH (08:34)
[2018-12-21] MEDS: CYMBALTA PO SCH ×3 (08:34→22:03)
[2018-12-21] MEDS: ROCEPHIN 2 GM in NS 50 ML IV SCH (09:16)
[2018-12-21] MEDS: MIRALAX PO PRN (09:16)
--- NOTE | 2018-12-21 13:14 | PROGRESS NOTE ---
DATE: 12/21/2018 SUBJECTIVE: Upon my arrival this morning, the patient was upright in her chair. She was eating lunch. The patient states she had a good night. Her only complaint is that of a mild "scratchy throat." She denies fevers, chills, nausea, vomiting, shortness of breath, or chest discomfort. She has walked in the [place] twice today. The patient did reasonably well. Energy level is slowly improving. The p.o. intake is adequate. OBJECTIVE: T-max is 98.7, heart rate 76 to 103, respirations 17 to 20, blood pressure 152 to 189 over 71 to 95. General: Well nourished, well developed, no acute distress, chronically ill appearing. Cardiovascular: Regular rate and rhythm. No significant murmurs, rubs or gallops. Pulmonary: Clear to auscultation bilaterally. Abdomen: Soft, nontender and nondistended. Positive bowel sounds. Extremities: Moves all extremities well. No significant cyanosis, clubbing or edema. Dermatologic: No evidence of rash. DIAGNOSTIC DATA: No laboratory data. ASSESSMENT AND PLAN: 1. Epiglottitis. The patient has achieved significant improvement from admission. As described above, the patient does complain of a "scratchy throat." She notes this pain to be very different from her admission symptoms with epiglottitis. We will continue antibiotic intervention. We will remain aware that tapering steroids may be playing a role in her mild increase in symptoms. 2. Bacteremia. Blood cultures returned positive for Haemophilus influenzae. Surveillance cultures from 12/20/2018 are negative. We will continue IV Rocephin while hospitalized. Upon discharge, we plan to convert the patient to oral levofloxacin for 6 weeks followed by indefinite Ceftin 500 mg daily as directed by Dr. Ferguson. Clinically, the patient has achieved significant improvement while hospitalized. 3. Dysphagia. This was a consequence of epiglottitis. The patient has achieved significant improvement while hospitalized. 4. Possible ventricular tachycardia. This occurred while hospitalized. I appreciate Dr. Lin's consultation. She has had no further episodes since adding carvedilol therapy. We will continue to monitor the patient on telemetry. 5. Hypertension. Unfortunately, the patient's blood pressures remain considerably elevated. I anticipate this will improve, although I am concerned not to goal, with decreasing steroids. The patient was treated with clonidine 0.2 mg 3 times daily as an outpatient. This has been held while hospitalized, per Cardiology. Should blood pressure remain elevated despite titrating dosage of carvedilol, we will consider resuming clonidine therapy. 6. Chronic kidney disease. The patient's creatinine remained stable as of yesterday. We will encourage hydration. 7. Profound weakness. [employer] has been consulted for consideration of inpatient rehabilitation. Over the last 2 days, the patient's ambulatory status has improved considerably. We will continue to follow the patient through the weekend. We will evaluate on Sunday to determine if inpatient rehabilitation is appropriate or if the patient could achieve adequate control with home health and discharge home. We will continue to encourage ambulation and activity. 8. Depression/anxiety. The patient's symptoms are well controlled with Cymbalta therapy. 9. Type 2 diabetes. The patient's blood sugars have been elevated associated with prednisone therapy. We will continue sliding scale insulin. 10.Hyperlipidemia. We will continue the patient on simvastatin therapy. 11.Pulmonary nodule. Initial CT scan suggested a pulmonary nodule. Repeat yesterday suggested this was a focal pneumonia. We will continue Rocephin therapy. 12.Suppressed TSH. This was diagnosed while hospitalized. At this point, I am concerned this could be reactive rather than a true suppression. For now, we will continue her current regimen, as she is asymptomatic. We will plan to follow this up as an outpatient. 13.Disposition. At this point, the patient continues to require [facility] care in the hospital setting. We will plan discharge home once appropriate. cc: Jorge Page MD
[2018-12-21] MEDS: LOVENOX SUBQ SCH (17:41)
[2018-12-21] MEDS: ZOCOR PO SCH ×2 (19:58→22:04)
[2018-12-22] MEDS: COREG PO SCH ×2 (00:59→13:38)
[2018-12-22] MEDS: DUONEB (A & A) INH SCH ×4 (03:32→22:34)
[2018-12-22] MEDS: HUMALOG SUBQ SCH ×4 (06:15→21:01)
[2018-12-22] MEDS: NEXIUM PO SCH (06:15)
[2018-12-22] MEDS: LIORESAL PO SCH ×2 (08:14→21:00)
[2018-12-22] MEDS: COZAAR PO SCH (08:14)
[2018-12-22] MEDS: CYMBALTA PO SCH ×2 (08:14→21:00)
[2018-12-22] MEDS: UROCIT-K PO SCH ×3 (08:14→17:25)
[2018-12-22] MEDS: VITAMIN D PO SCH ×3 (08:15→17:25)
[2018-12-22] MEDS: COENZYME Q10 PO SCH (08:15)
[2018-12-22] MEDS: VICON-C PO SCH (08:15)
[2018-12-22] MEDS: LAMICTAL PO SCH ×2 (08:15→21:00)
[2018-12-22] MEDS: GLUCOPHAGE PO SCH ×2 (08:15→17:25)
[2018-12-22] MEDS: TUMS PO SCH ×3 (08:15→17:25)
[2018-12-22] MEDS: NORVASC PO SCH (08:15)
[2018-12-22] MEDS: PREDNISONE PO SCH (08:15)
[2018-12-22] MEDS: ROCEPHIN 2 GM in NS 50 ML IV SCH (10:32)
[2018-12-22] MEDS: SYNTHROID PO SCH (10:32)
--- NOTE | 2018-12-22 10:59 | PROGRESS NOTE ---
DATE: 12/22/2018 SUBJECTIVE: The patient complains that she is not getting very good quality sleep due to constant interruptions during the night by staff. She makes a point to state, though, that she is having excellent care in the CICU and really should not complain about that at all. She denies any difficulty breathing. She still has a little bit of pain in the right portion of her throat which was the origin of her symptoms when she was admitted. She is eating well. She is up and walking about the room with no difficulty. OBJECTIVE: Vital Signs: 98.0, 81, 17, 177/94, 96% saturated on room air. Lungs: The patient's lungs are clear. There is no wheezing. She is not having any struggling to breathe. Her voice is slightly hoarse. There is no stridor in listening to the neck. Extremities: Show no peripheral edema. LABORATORY: None was ordered. ASSESSMENT AND PLAN: 1. The patient's epiglottitis has been addressed and continues to show improvement. Dr. Page has tapered steroids down to 20 mg. She continues on antibiotics. 2. The patient's bacteremia has essentially resolved. Her 12/20/2018 surveillance cultures were negative. She is continuing IV Rocephin. 3. The patient's dysphagia has more or less resolved with the treatment of her epiglottitis. 4. The patient had a possible ventricular tachycardic episode. She was evaluated by Dr. Lin. 5. Hypertension. The patient's blood pressures are a bit high. I am sure that they are multiple factors playing into this during her hospitalization. Various titrations of her blood pressure medication have been made. 6. Chronic kidney disease. We will recheck BMP tomorrow. 7. The patient continues to feel as though she is weak and washed out. There was consideration for inpatient rehab should she not bounce back. 8. Depression, anxiety, aware. 9. Type 2 diabetes, adequate control for recovery. 10. The patient will remain in the [facility]. I have written for do not disturb orders between 10 p.m. and 6 a.m. We will re-draw labs in the morning. Hopefully, we will be able to make a disposition early in the week and either get her to rehab or home. cc: MD Jorge Cruz MD
[2018-12-22] MEDS: LOVENOX SUBQ SCH (17:25)
[2018-12-22] MEDS: ZOCOR PO SCH (21:00)
[2018-12-22] MEDS: MIRALAX PO PRN (21:00)
[2018-12-23] MEDS: DUONEB (A & A) INH SCH ×4 (03:40→22:42)
[2018-12-23 05:52] LABS: BASO# 0.02 X1000 (0.0-0.2); BASO% 0.1 % (0.0-0.8); EOS# 1.03 X1000 (0.0-0.7); EOS% 4.8 % (0.0-10.0); HEMATOCRIT 40.2 % (37.0-47.0); HEMOGLOBIN 13.3 g/dL (12.0-16.0); LYMPH# 3.32 X1000 (1.2-3.4); LYMPH% 15.3 % (20.5-51.1); MCH 29.4 PG (27-31); MCHC 33.1 g/dL (33-37); MCV 88.7 FL (81-99); MONO# 1.62 X1000 (0.11-0.59); MONO% 7.5 % (1.7-9.3); MPV 10.8 FL (7.4-10.4); NEUT# 15.69 X1000 (1.4-6.5); NEUT% 72.3 % (42.2-75.2); PLT 328 X1000 (130-400); RBC 4.53 XMIL (4.2-5.4); RDW 15.7 % (11.5-14.5); WBC 21.68 X1000 (4.8-10.8)
[2018-12-23 06:05] LABS: CREATININE 1.3 mg/dL (0.5-0.9); POTASSIUM 4.4 mmol/L (3.5-5.1)
[2018-12-23] MEDS: COREG PO SCH ×2 (06:13→17:34)
[2018-12-23] MEDS: HUMALOG SUBQ SCH ×4 (06:13→21:13)
[2018-12-23] MEDS: NEXIUM PO SCH (06:13)
[2018-12-23] MEDS: COENZYME Q10 PO SCH (08:07)
[2018-12-23] MEDS: UROCIT-K PO SCH ×3 (08:07→17:35)
[2018-12-23] MEDS: NORVASC PO SCH (08:07)
[2018-12-23] MEDS: GLUCOPHAGE PO SCH ×2 (08:07→17:34)
[2018-12-23] MEDS: VICON-C PO SCH (08:07)
[2018-12-23] MEDS: LIORESAL PO SCH ×2 (08:07→21:12)
[2018-12-23] MEDS: COZAAR PO SCH (08:07)
[2018-12-23] MEDS: LAMICTAL PO SCH ×2 (08:07→21:12)
[2018-12-23] MEDS: PREDNISONE PO SCH (08:07)
[2018-12-23] MEDS: TUMS PO SCH ×3 (08:07→17:35)
[2018-12-23] MEDS: VITAMIN D PO SCH ×3 (08:07→17:35)
[2018-12-23] MEDS: CYMBALTA PO SCH ×2 (08:07→21:12)
[2018-12-23] MEDS: SYNTHROID PO SCH (08:07)
[2018-12-23] MEDS: ROCEPHIN 2 GM in NS 50 ML IV SCH (09:57)
[2018-12-23] MEDS: CATAPRES PO SCH ×3 (10:05→17:37)
[2018-12-23] MEDS: MIRALAX PO PRN (14:56)
--- NOTE | 2018-12-23 15:33 | Diag Imaging Result Doc PS360 ---
EXAM: CT NECK W/O CONTRAST 12/23/2018 HISTORY: Persistent epiglottitis TECHNIQUE: This exam was performed using automated exposure control, adjustment of mA or kV according to patient size, and/or use of iterative reconstruction technique. 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 The degree of epiglottic enlargement which was present on the previous examination of 12/15/2018 has diminished somewhat. The airway is narrow were in the area of the glottis and subglottic trachea however. This may be related to phase of inspiration. There are no abnormal fluid collections. The nasopharynx is normal in appearance. The salivary glands are stable in appearance. There is no evidence of significant adenopathy. The visualized thoracic apices are within normal limits. IMPRESSION: There is still considerable soft tissue swelling around the glottis, although the epiglottis may be slightly smaller than on the previous study. The possibility of neoplastic disease cannot be excluded. Electronically signed by Tyler Ahmadi 12/23/2018 3:31 PM
[2018-12-23] MEDS: LOVENOX SUBQ SCH (17:35)
[2018-12-23] MEDS: ZOCOR PO SCH (21:12)
--- NOTE | 2018-12-23 21:19 | PROGRESS NOTE ---
DATE: 12/23/2018 SUBJECTIVE: Upon my arrival this morning, patient stated she felt reasonably well. She did, however, complain of persistent right posterior pharyngeal pain. Because of the persistence of symptoms, Dr. Sales was consulted again. Repeat laryngoscopy suggested persistent inflammation consistent with epiglottitis. A CT scan of the neck was again performed. Considerable soft tissue swelling around the glottis was noted. Epiglottis was noted to be slightly smaller than on the previous study. The possibility of neoplastic disease could not be completely excluded. This evening, patient states she feels reasonably well. Throughout the day, patient did ambulate with physical therapy. She remains weak, but with improvement. She denies fevers, chills, nausea, vomiting, shortness of breath, or chest discomfort. OBJECTIVE: Vital Signs: T-max 98.7 degrees, heart rate, 83 to 86, respirations 16 to 17, blood pressure 148 to 198 over 55 to 92. General: Well developed, well nourished, no acute distress. Cardiovascular: Regular rate and rhythm. No significant murmurs, rubs, or gallops. Pulmonary: Clear to auscultation bilaterally. Abdomen: Soft, nontender, nondistended. Positive bowel sounds. Extremities: Moves all extremities well. No significant clubbing, cyanosis, or edema. Dermatologic: Evaluation reveals no evidence of rash. LABORATORY DATA: White blood cell count 21.68, hemoglobin 13.3, hematocrit 40.2, platelet count 328,000. Sodium 138, potassium 4.4, chloride 97, bicarb 28, BUN 34, creatinine 1.3, glucose 149, calcium 11.0. ASSESSMENT AND PLAN: 1. Epiglottitis. Unfortunately, the patient has persistent inflammation. She has achieved significant improvement from admission, although not resolution. I have discussed the case with Dr. Sales. CT scan suggested glottis inflammation, but slight improvement in the epiglottis. We will discuss this with Dr. Sales further and determine if biopsy is appropriate. For now, we will continue antibiotic intervention and steroids. 2. Bacteremia. Patient's cultures grew Haemophilus influenzae. Surveillance cultures are negative. We will continue intravenous Rocephin for now. We will plan to transition to levofloxacin for 6 weeks as an outpatient, followed by Ceftin 500 mg daily thereafter. 3. Dysphagia. Patient has noted considerable improvement while hospitalized. She does, however, continue to have bile symptoms. We will remain aware. 4. Possible ventricular tachycardia. Patient is currently being treated with carvedilol therapy per Dr. Lin. Symptoms are controlled. 5. Hypertension. Patient's blood pressure was significantly elevated. Clonidine was resumed at 0.1 mg 3 times daily. Blood pressures are improving. We will need to monitor this closely with discontinuing losartan therapy. 6. Chronic kidney disease. Patient's creatinine is slightly up from yesterday to 1.3. We will remain aware. 7. Profound weakness. Patient is achieving improvement with physical therapy. I anticipate discharge home in the near future. At this point, she would like to avoid rehabilitation if possible 8. Depression/anxiety. We will continue patient on Cymbalta therapy. 9. Type 2 diabetes. Patient's blood sugars are reasonably controlled with sliding scale insulin. 10. Hyperlipidemia. On simvastatin therapy. 11. Suppressed TSH. Patient is being treated with replacement. We will remain aware that this suppression may be reactive rather than a primary. We will continue her current dosage of replacement for now. 12. Angiotensin receptor angelic use. In the setting of glottic and epiglottic inflammation, we will hold losartan for the possibility of angioedema. We will remain aware. 13. Disposition. At this point, patient continues to require prison care in a hospital setting. We will plan discharge home once appropriate. cc: Jorge Page MD
[2018-12-24] MEDS: DUONEB (A & A) INH SCH ×4 (03:52→22:08)
[2018-12-24] MEDS: NEXIUM PO SCH (06:11)
[2018-12-24] MEDS: COREG PO SCH ×2 (06:11→18:22)
[2018-12-24 06:12] LABS: BASO# 0.08 X1000 (0.0-0.2); BASO% 0.4 % (0.0-0.8); EOS# 0.64 X1000 (0.0-0.7); EOS% 3.2 % (0.0-10.0); HEMATOCRIT 37.6 % (37.0-47.0); HEMOGLOBIN 12.2 g/dL (12.0-16.0); IMM GRAN# 1.39 X1000 (0.0-0.04); LYMPH# 3.22 X1000 (1.2-3.4); LYMPH% 16.3 % (20.5-51.1); MCH 28.3 PG (27-31); MCHC 32.4 g/dL (33-37); MCV 87.2 FL (81-99); MONO% 8.6 % (1.7-9.3); MPV 9.6 FL (7.4-10.4); NEUT% 64.5 % (42.2-75.2); PLT 377 X1000 (130-400); RBC 4.31 XMIL (4.2-5.4); RDW 15.6 % (11.5-14.5); WBC 19.73 X1000 (4.8-10.8)
[2018-12-24] MEDS: HUMALOG SUBQ SCH ×4 (06:16→20:57)
[2018-12-24 06:38] LABS: POTASSIUM 4.6 mmol/L (3.5-5.1); SODIUM 139 mmol/L (136-145)
[2018-12-24 06:39] LABS: AGAP 12; ALB/GLOB RATIO 1.4; ALBUMIN 3.6 g/dL (3.5-5.0); ALKALINE PHOSPHATASE 66 U/L (32-104); BUN 41 mg/dL (8-22); CALCIUM 10.2 mg/dL (8.8-10.2); CHLORIDE 98 mmol/L (98-107); COSMO 289; CREATININE 1.3 mg/dL (0.5-0.9); ESTIMATED GFR 40; GLUCOSE 131 mg/dL (70-104); GOT 19 U/L (10-30); GPT 27 U/L (10-36); TCO2 29 mmol/L (25-35); TOTAL BILIRUBIN < 0.15 mg/dL (0.20-1.00); TOTAL PROTEIN 6.1 g/dL (6.3-8.3)
[2018-12-24 07:50] LABS: BANDS 2 % (0-1); EOS 1 % (1-10); LYMPHS 23 % (21-51); MONO 2 % (1-9); SEGS 65 % (42-75)
[2018-12-24] MEDS: NORVASC PO SCH (08:05)
[2018-12-24] MEDS: VICON-C PO SCH (08:05)
[2018-12-24] MEDS: UROCIT-K PO SCH ×3 (08:05→17:28)
[2018-12-24] MEDS: PREDNISONE PO SCH (08:05)
[2018-12-24] MEDS: LAMICTAL PO SCH ×2 (08:05→20:56)
[2018-12-24] MEDS: CATAPRES PO SCH ×3 (08:05→17:28)
[2018-12-24] MEDS: COENZYME Q10 PO SCH (08:05)
[2018-12-24] MEDS: TUMS PO SCH ×3 (08:05→17:28)
[2018-12-24] MEDS: SYNTHROID PO SCH (08:05)
[2018-12-24] MEDS: GLUCOPHAGE PO SCH ×2 (08:05→17:28)
[2018-12-24] MEDS: CYMBALTA PO SCH ×2 (08:05→20:56)
[2018-12-24] MEDS: VITAMIN D PO SCH ×3 (08:05→17:28)
[2018-12-24] MEDS: LIORESAL PO SCH ×2 (08:05→20:56)
[2018-12-24] MEDS: ROCEPHIN 2 GM in NS 50 ML IV SCH (09:12)
[2018-12-24] MEDS: MIRALAX PO PRN (10:15)
--- NOTE | 2018-12-24 15:28 | PROGRESS NOTE ---
DATE: 12/24/2018 SUBJECTIVE: Ms Sr is still hospitalized for various medical problems. One includes the supraglottitis. She has been on IV antibiotics for over a week. She has noticed a return in some of her symptoms, especially on the right side. Dr. Page asked me to see her again in regards to this. OBJECTIVE: With a fiberoptic scope the right area epiglottic fold is still swollen. There is a little swelling of the left arytenoid area as well. The airway is very normal. The cords are normal. The swelling about the vallecula and epiglottis that was previously noted has resolved. IMPRESSION: Still with swelling of the right side of the larynx. We discussed various etiologies, including persistent infection and possible abscess. We also discussed ARB blood pressure and angioedema. She is swallowing well, having minimal pain, but still has some fullness in this area. I have discussed with Dr. Page. We will get a CT scan to evaluate for any abscess in the endolarynx or laryngeal framework. She is tolerating regular diet and is doing much better. Will see what the CT shows and go from there. cc: MD oJrge Vaughn MD
[2018-12-24] MEDS: LOVENOX SUBQ SCH (17:29)
[2018-12-24] MEDS: ZOCOR PO SCH (20:56)
--- NOTE | 2018-12-24 21:42 | PROGRESS NOTE ---
DATE: 12/24/2018 SUBJECTIVE: Upon my arrival this morning, patient was resting in bed. She denied significant problems overnight. She continued to complain of mild sore throat, but denied fevers or chills. Throughout the day today, patient continued to work with physical therapy. Her p.o. intake has been adequate. This evening, patient notes continued improvement with increasing strength. She denies fevers, chills, nausea, vomiting, shortness of breath, or chest discomfort. OBJECTIVE: Vital Signs: T-max 98.4 degrees, heart rate 79 to 95, respirations 15 to 26, blood pressure 134 to 168 over 61 to 72. General: Distress. Cardiovascular: Regular rate and rhythm. No significant murmurs, rubs, or gallops. Pulmonary: Clear to auscultation bilaterally. Abdomen: Soft, nontender, and nondistended. Positive bowel sounds. Extremities: Moves all extremities well. No significant clubbing, cyanosis, or edema. Dermatologic: Evaluation reveals no evidence of rash. LABORATORY DATA: White blood cell count 19.73, hemoglobin 12.2, hematocrit 37.6, platelet count 377,000. Sodium 139, potassium 4.6, chloride 98, bicarb 29, BUN 41, creatinine 1.3, glucose 131, calcium 10.2, total bilirubin less than 0.15, total protein 6.1, albumin 3.6, alkaline phosphatase 66, AST 19, ALT 27. ASSESSMENT AND PLAN: 1. Epiglottitis. Unfortunately, patient has demonstrated persistent inflammation. We will continue intravenous antibiotics for now. We will continue current dose of prednisone. I discussed the case with Dr. Sales today. If the patient's condition continues to improve, we will plan close outpatient followup. We will plan antibiotic as described below and a steroid taper over the next 10 days. 2. Bacteremia. Blood cultures grew Haemophilus influenza. We will continue Rocephin while hospitalized. We will transition to levofloxacin once discharged for 6 weeks, followed by Ceftin 500 mg daily thereafter. With the exception of an elevated white blood cell count, patient is manifesting no evidence of persistent infection. 3. Dysphagia. Patient has improved considerably with treatment of her epiglottitis. 4. Possible ventricular tachycardia. I appreciate Dr. Lin's consultation. We will continue patient on carvedilol therapy. Symptoms are controlled. 5. Hypertension. Patient's losartan has been held secondary to the possibility of angioedema. Clonidine was resumed at 0.1 mg 3 times daily. Blood pressures are improving. 6. Chronic kidney disease. Patient's creatinine is stable at 1.3. We will encourage hydration. 7. Profound weakness. The patient is achieving improvement with physical therapy. We will continue this as an outpatient. 8. Depression/anxiety. We will continue patient on Cymbalta therapy. 9. Type 2 diabetes. Patient's blood sugars are slightly elevated with prednisone therapy. We will continue sliding scale insulin. 10. Hyperlipidemia. We will continue patient on simvastatin therapy. 11. Suppressed TSH. This likely is reactive. We will plan to recheck this as an outpatient. 12. Disposition. At this point, patient continues to require senior living care in a hospital setting. We will plan discharge home once appropriate. cc: Jorge Page MD
[2018-12-25] MEDS: DUONEB (A & A) INH SCH ×3 (05:12→15:16)
[2018-12-25 05:24] LABS: BASO# 0.07 X1000 (0.0-0.2); BASO% 0.3 % (0.0-0.8); EOS# 0.49 X1000 (0.0-0.7); EOS% 2.4 % (0.0-10.0); HEMATOCRIT 37.1 % (37.0-47.0); HEMOGLOBIN 12.2 g/dL (12.0-16.0); IMM GRAN# 1.37 X1000 (0.0-0.04); IMM GRAN% 6.7 % (0.0-0.5); LYMPH# 3.06 X1000 (1.2-3.4); LYMPH% 14.9 % (20.5-51.1); MCH 28.8 PG (27-31); MCHC 32.9 g/dL (33-37); MCV 87.5 FL (81-99); MONO# 1.78 X1000 (0.11-0.59); MONO% 8.6 % (1.7-9.3); MPV 9.5 FL (7.4-10.4); NEUT# 13.81 X1000 (1.4-6.5); NEUT% 67.1 % (42.2-75.2); PLT 377 X1000 (130-400); RBC 4.24 XMIL (4.2-5.4); RDW 15.6 % (11.5-14.5); WBC 20.58 X1000 (4.8-10.8)
[2018-12-25 05:44] LABS: AGAP 12; ALB/GLOB RATIO 1.4; ALBUMIN 3.6 g/dL (3.5-5.0); ALKALINE PHOSPHATASE 68 U/L (32-104); BUN 41 mg/dL (8-22); CALCIUM 10.5 mg/dL (8.8-10.2); CHLORIDE 96 mmol/L (98-107); COSMO 281; CREATININE 1.1 mg/dL (0.5-0.9); ESTIMATED GFR 48; GLUCOSE 147 mg/dL (70-104); GOT 21 U/L (10-30); GPT 32 U/L (10-36); POTASSIUM 4.8 mmol/L (3.5-5.1); SODIUM 134 mmol/L (136-145); TCO2 26 mmol/L (25-35); TOTAL BILIRUBIN < 0.15 mg/dL (0.20-1.00); TOTAL PROTEIN 6.2 g/dL (6.3-8.3)
[2018-12-25 06:19] LABS: EOS 3 % (1-10); LYMPHS 15 % (21-51); MONO 5 % (1-9); SEGS 77 % (42-75)
[2018-12-25] MEDS: HUMALOG SUBQ SCH ×3 (06:27→16:38)
[2018-12-25] MEDS: NEXIUM PO SCH (06:31)
[2018-12-25] MEDS: COREG PO SCH (06:31)
[2018-12-25] MEDS: CATAPRES PO SCH ×2 (09:27→12:02)
[2018-12-25] MEDS: COENZYME Q10 PO SCH (09:27)
[2018-12-25] MEDS: ROCEPHIN 2 GM in NS 50 ML IV SCH (09:27)
[2018-12-25] MEDS: GLUCOPHAGE PO SCH (09:27)
[2018-12-25] MEDS: SYNTHROID PO SCH (09:27)
[2018-12-25] MEDS: VITAMIN D PO SCH ×2 (09:27→12:02)
[2018-12-25] MEDS: UROCIT-K PO SCH ×2 (09:27→12:02)
[2018-12-25] MEDS: LIORESAL PO SCH (09:27)
[2018-12-25] MEDS: TUMS PO SCH ×2 (09:27→12:02)
[2018-12-25] MEDS: VICON-C PO SCH (09:27)
[2018-12-25] MEDS: NORVASC PO SCH (09:28)
[2018-12-25] MEDS: PREDNISONE PO SCH (09:28)
[2018-12-25] MEDS: CYMBALTA PO SCH (09:28)
[2018-12-25] MEDS: LAMICTAL PO SCH (09:28)
[2018-12-25 11:12] VITALS: BP 133/48
--- NOTE | 2018-12-26 07:20 | DISCHARGE SUMMARY ---
ADMISSION DATE: 12/15/2018 DISCHARGE DATE: 12/25/2018 ADMISSION DIAGNOSES: 1. Dysphagia. 2. Shortness of breath. DISCHARGE DIAGNOSES: 1. Epiglottitis, improving. 2. Bacteremia with Haemophilus influenzae. 3. Dysphagia, resolved with treatment of epiglottitis. 4. Possible ventricular tachycardia, controlled. 5. Profound weakness, improving with physical therapy. 6. Hypertension, present on arrival. 7. Chronic kidney disease, present on arrival. 8. Depression/anxiety, present on arrival. 9. Type 2 diabetes, present on arrival. 10. Hyperlipidemia, present on arrival. 11. Suppressed TSH, likely reactive. CONSULTATIONS: 1. Dr. Sales with ENT was consulted for further evaluation and management of acute epiglottitis. 2. Dr. Lin with Cardiology was consulted for further evaluation and management of possible ventricular tachycardia. 3. Dr. Ferguson with Infectious Disease was consulted for further evaluation and management of epiglottitis with associated Haemophilus influenzae bacteremia. PROCEDURES: 1. CT scan of the neck was performed on 12/15/2018 which revealed right perihilar nodule. The possibility of neoplastic disease cannot be excluded. Thyroid calcifications particularly on the right. Thickening of epiglottitis and supraglottic soft tissues. 2. Chest x-ray was performed on 12/17/2018 which revealed slightly low lung volumes. No definite acute pathology otherwise. 3. CT scan of the chest was performed on 12/20/2018 which revealed small focal hazy infiltrate in the right upper lobe most compatible with pneumonia. Stable left adrenal gland nodule. 4. Multiple laryngoscopies were performed by Dr. Sales. HISTORY AND PHYSICAL EXAMINATION: See admit note. PHYSICAL EXAMINATION PRIOR TO DISCHARGE: Temperature 97.7 degrees, heart rate 77, respirations 15, blood pressure is 133/48. General: Well nourished, well developed, no acute distress. Cardiovascular: Regular rate and rhythm. No significant murmurs, rubs, or gallops. Pulmonary: Clear to auscultation bilaterally. Abdomen: Soft, nontender, nondistended. Positive bowel sounds. Extremities: Moves all extremities well. No significant clubbing, cyanosis, or edema. Neurologic: Cranial nerves 2 through 12 grossly intact. Motor and sensory grossly intact. Dermatologic evaluation reveals no evidence of rash. LABORATORY DATA PRIOR TO DISCHARGE: White blood cell count 20.58, hemoglobin 12.2, hematocrit 37.1, platelet count 377,000. Sodium 134, potassium 4.8, chloride 96, bicarb 26, BUN 41, creatinine 1.1, glucose 147, calcium 10.5, total bilirubin less than 0.15, total protein 6.2, albumin 3.6, alkaline phosphatase 68, AST 21, ALT 32. HOSPITAL COURSE: Patient was admitted as per history and physical examination. Hospital course per condition is as follows: 1. Epiglottitis-upon admission patient was noted to have considerable symptoms including dysphagia. Dr. Sales was consulted. Condition was confirmed per laryngoscopy and CT scan. The patient was immediately placed on broad-spectrum antibiotics and IV steroids. With stabilization of airway, no intubation was deemed warranted. The patient was treated with IV therapy while hospitalized. Blood cultures were drawn as described below which returned with Haemophilus influenzae. Once definitive sensitivities were noted, patient's antibiotics were converted to Rocephin therapy. Throughout the remainder of hospitalization, patient was treated with a steroid taper and IV Rocephin. The patient experienced a slow, but progressive improvement. At time of discharge, patient was swallowing without pain. The patient will complete 6 weeks of levofloxacin followed by daily Ceftin as an outpatient. We will provide a steroid taper over the course of the next 8 days. Close followup by Dr. Sales will be arranged as an outpatient. 2. Bacteremia-as above, blood cultures grew Haemophilus influenzae. Patient was treated with Rocephin while hospitalized. We will transition patient to 6 weeks of levofloxacin. Thereafter, she will need Ceftin 500 mg daily. We will continue this indefinitely secondary to hardware from previous lumbar spine surgery. 3. Dysphagia-with treatment of her epiglottitis patient has achieved improvement. We will follow this. 4. Possible ventricular tachycardia-while hospitalized, patient had an approximately 40 beat run of ventricular tachycardia. This occurred with ambulating to the restroom. The patient has had a left heart catheterization in the last several years which demonstrated no evidence of obstructive disease. Cardiac enzymes returned negative. The patient was changed from metoprolol to carvedilol therapy. This was titrated up while hospitalized. Patient will be discharged on carvedilol 25 mg twice daily. No further evidence of ventricular tachycardia was noted while hospitalized. 5. Hypertension-unfortunately, patient's blood pressure remained significantly elevated while hospitalized. Per Cardiology recommendations, we attempted to titrate off of clonidine, although unsuccessfully. In the setting of persistent epiglottitis, losartan was discontinued secondary to the possibility of angioedema. At time of discharge, blood pressures were reasonably controlled with clonidine 0.1 mg 3 times daily and Coreg 25 mg twice daily. We will ask patient to keep a log of her blood pressure between now and her post hospital visit. 6. Chronic kidney disease-while hospitalized, patient's kidney function remained reasonably controlled. We will continue to encourage hydration. Her potassium citrate was held secondary to elevating potassium levels. We will plan to recheck a CMP as an outpatient. 7. Profound weakness-this is a consequence of chronic disease exacerbated by her acute illness. She was treated with physical therapy while hospitalized. At time of discharge, patient was ambulating well in the [place]. We discussed that if her condition does not continue to improve with home health and home physical therapy, we will need to consider inpatient rehabilitation. We will follow this. 8. Depression/anxiety-patient was continued on Cymbalta while hospitalized. Symptoms are controlled. 9. Type 2 diabetes-patient's blood sugars have been slightly elevated while on prednisone therapy. She was followed with sliding scale insulin while hospitalized. We will plan to titrate off prednisone within the next 8 days as an outpatient. 10. Hyperlipidemia-patient was continued on simvastatin therapy while hospitalized. 11. Suppressed TSH-this was an isolated finding. At this point, I suspect this is reactive rather than a true TSH. We will plan to recheck this as an outpatient. She is currently asymptomatic. DISCHARGE CONDITION: Good. DISPOSITION: Discharged to home. MEDICATIONS: 1. Amlodipine 5 mg daily. 2. Baclofen 10 mg twice daily. 3. Tums 500 mg 3 times daily. 4. Carvedilol 25 mg every 12 hours. 5. Vitamin D 3000 units 3 times daily. 6. Clonidine 0.1 mg 3 times daily. 7. Duloxetine 60 mg twice daily. 8. Nexium 40 mg daily. 9. Lamotrigine 100 mg twice daily. 10. Synthroid 100 mcg daily. 11. Metformin 500 mg twice daily. 12. MiraLAX 17 g in 8 ounces of juice daily as needed. 13. Prednisone 20 mg, titrating down 5 mg every other day until off. 14. Simvastatin 40 mg at bedtime. 15. Coenzyme-Q10, 100 mg daily. 16. B-complex vitamin daily. 17. Albuterol 1 to 2 puffs every 4-6 hours as needed. 18. Cinnamon 500 mg daily. 19. Glucosamine and chondroitin twice daily. 20. Levofloxacin 500 mg daily for the next 6 weeks. 21. Loratadine 10 mg daily as needed. 22. Patient has been instructed to discontinue fish oil, furosemide, losartan, metoprolol ER, and potassium citrate. FOLLOWUP: The patient is to follow up with Dr. Sales's office on Sunday. The patient is a follow up with Dr. Ferguson in 2 to 3 weeks. Patient is to follow up with me in approximately 1 to 2 weeks at which time we will recheck a CBC and CMP. cc: Jorge Page MD
== END 2018-12-25 16:45 | disposition home health service (06) | DRG 153 ==
LOC: ED 14:20 → EDIPHOLD 19:52 → ICU 12-16 11:48 → 3S 12-17 15:51
PROVIDERS: ADMIT Internal Medicine; ATTEND Internal Medicine

== ENCOUNTER 2019-01-15 14:20 | Inpatient (IN) ==
[2019-01-15] MEDS ORDERED: CLARITIN PO PRN (16:28)
[2019-01-15] MEDS ORDERED: SODIUM CHLORIDE 0.9% INJ PRN (16:28)
[2019-01-15] MEDS ORDERED: NS 1,000 ML IV SCH (16:28)
[2019-01-15] MEDS ORDERED: PHENERGAN IV PRN (16:28)
[2019-01-15] MEDS ORDERED: GLUCOPHAGE PO SCH (17:00)
--- NOTE | 2019-01-15 17:22 | Diag Imaging Result Doc PS360 ---
EXAM: CHEST-2 VIEWS HISTORY: Shortness of breath TECHNIQUE: Chest two views COMPARISON: 01/13/2019 FINDINGS: The lungs are well expanded. The heart is mildly prominent. The vessels are not distended. There are no infiltrates. No pleural effusions. IMPRESSION: Mildly prominent heart, otherwise negative exam. Electronically signed by Erik Olmos 01/15/2019 5:20 PM
[2019-01-15 17:32] LABS: ALB/GLOB RATIO 1.2; ALBUMIN 3.3 g/dL (3.5-5.0); CALCIUM 9.7 mg/dL (8.8-10.2); CREATININE 1.5 mg/dL (0.5-0.9); TOTAL BILIRUBIN 0.23 mg/dL (0.20-1.00)
[2019-01-15 19:10] LABS: BASO# 0.03 X1000 (0.0-0.2); BASO% 0.4 % (0.0-0.8); EOS# 0.37 X1000 (0.0-0.7); EOS% 5.2 % (0.0-10.0); HEMATOCRIT 36.7 % (37.0-47.0); IMM GRAN# 0.04 X1000 (0.0-0.04); IMM GRAN% 0.6 % (0.0-0.5); LYMPH# 2.03 X1000 (1.2-3.4); LYMPH% 28.6 % (20.5-51.1); MCH 28.9 PG (27-31); MCHC 32.7 g/dL (33-37); MCV 88.4 FL (81-99); MONO# 0.62 X1000 (0.11-0.59); MONO% 8.7 % (1.7-9.3); MPV 8.6 FL (7.4-10.4); NEUT# 4.02 X1000 (1.4-6.5); NEUT% 56.5 % (42.2-75.2); PLT 216 X1000 (130-400); RBC 4.15 XMIL (4.2-5.4); RDW 16.2 % (11.5-14.5); WBC 7.11 X1000 (4.8-10.8)
[2019-01-15 20:03] LABS: URINE SOURCE CLEAN CATCH
[2019-01-15] MEDS: VITAMIN D PO SCH (20:07)
[2019-01-15] MEDS: TUMS PO SCH (20:08)
[2019-01-15 20:09] LABS: BILIRUBIN URINE NEGATIVE (NEGATIVE); BLOOD URINE NEGATIVE (NEGATIVE); COLOR YELLOW; GLUCOSE URINE NEGATIVE (NEGATIVE); KETONE URINE NEGATIVE (NEGATIVE); LEUKOCYTES URINE MODERATE (NEGATIVE); NITRITE URINE NEGATIVE (NEGATIVE); PH URINE 6.5; PROTEIN URINE 70 mg/dL (NEGATIVE); SP GRAVITY URINE 1.018; TURBIDITY URINE CLEAR (CLEAR); UR EPITHELIAL CELLS <10 /HPF (<10); URINE BACTERIA NEGATIVE /HPF; URINE RBC <10 /HPF (<10); URINE WBC 20-40 /HPF (<10); UROBILINOGEN URINE NORMAL (NORMAL)
[2019-01-15] MEDS: COREG PO SCH (20:23)
[2019-01-15] MEDS: LOVENOX SUBQ SCH (20:23)
[2019-01-15] MEDS: GLUCOSAMINE 500 MG/CHONDROITIN 400 MG PO SCH (20:23)
[2019-01-15] MEDS: LAMICTAL PO SCH (20:23)
[2019-01-15] MEDS: CYMBALTA PO SCH (20:23)
[2019-01-15] MEDS: LIORESAL PO SCH (20:23)
[2019-01-15 20:27] LABS: SED RATE 17 mm/hr (0-20)
[2019-01-15] MEDS: TYLENOL PO PRN (20:27)
[2019-01-15] MEDS ORDERED: ZOCOR PO SCH (21:00)
[2019-01-15] MEDS: HUMALOG SUBQ SCH (21:55)
--- NOTE | 2019-01-15 22:19 | HISTORY AND PHYSICAL ---
PRIMARY CARE PHYSICIAN: Dr. Jorge Page. CHIEF COMPLAINT: Profound weakness, nausea, vomiting. HISTORY OF PRESENT ILLNESS: A 78-year-old, white female, with a complicated past medical history, presents for evaluation of above-mentioned symptoms. Pertinent history of present illness began on 12/15/2018. At that time, patient presented to the emergency department with dysphagia and shortness of breath. Full evaluation was pursued revealing epiglottitis. Blood cultures returned positive for Haemophilus influenza. The patient was treated with IV antibiotics while hospitalized. The patient subsequently was transitioned to levofloxacin as an outpatient. She was discharged home on 11/24/2018. Initially while at home, patient states she felt reasonably well. Home health was recommended, but patient denied. Patient noted a slow increase in energy. Oral intake was adequate. Approximately 3 days ago, patient developed profound fatigue, nausea, vomiting, and arthralgias. The patient was seen by Dr. Ferguson. Laboratory data was pursued. No significant abnormalities were identified. Over the course of the last 48 hours, patient has had progression of her symptoms. The patient stated upon walking into my office, she was forced to stop on 3 occasions secondary to weakness. She denied chest pains, palpitations, or shortness of breath. Because of patient's progression in her inability to care for herself at home, patient will be admitted to the hospital for full evaluation and management. Of note, patient has had a sick contact in a grandchild. She denies dysuria, hematuria, pyuria, change in bowel movements including hematochezia and melena, cough, congestion, chest pains, or shortness of breath. PAST MEDICAL HISTORY: 1. Long-standing poor R-wave progression. 2. Multiple actinic keratoses and seborrheic keratoses. 3. History of acute cholecystitis, status post laparoscopic cholecystectomy in 1998. 4. Chronic anemia secondary to chronic kidney disease. 5. Atypical chest pain with negative evaluations in 2005, 2012, 2013, and 2017. 6. Carpal tunnel syndrome. 7. Chronic kidney disease. 8. Diverticulosis. 9. Depression. 10. Type 2 diabetes. 11. Reflux disease. 12. Hypertension. 13. Hyperlipidemia. 14. Low back pain. 15. Mitral regurgitation. 16. Obstructive sleep apnea. 17. History of a thyroid nodule with negative biopsy. 18. Osteoarthritis. 19. History of colonic polyps. 20. Postmenopausal state. CURRENT MEDICATIONS: 1. Albuterol 1 to 2 puffs every 4-6 hours as needed. 2. Amlodipine 5 mg daily. 3. Baclofen 10 mg twice daily. 4. Calcium carbonate 500 mg 3 times daily. 5. Carvedilol 25 mg q.12 hours. 6. Vitamin D3, 1000 units 3 times daily. 7. Duloxetine 60 mg twice daily. 8. Nexium 40 mg daily. 9. Glucosamine and chondroitin twice daily. 10. Lamictal 100 mg twice daily. 11. Levaquin 500 mg daily. 12. Levothyroxine 100 mg daily. 13. Loratadine 10 mg daily as needed. 14. Metformin 500 mg twice daily. 15. Multivitamin daily. 16. Polyethylene glycol as needed. 17. Simvastatin 40 mg at bedtime. 18. Coenzyme Q10, 100 mg daily. 19. Clonidine 0.1 mg 3 times daily. ALLERGIES: Patient states she is allergic to MATHIEU inhibitors which causes a cough, ramipril which causes a cough, sulfa drugs which causes asthma and shortness of breath. SOCIAL HISTORY: The patient is a former smoker, having smoked 1/2 pack per day for 10 years. She quit in 1998. She denies alcohol or illicit drug use. 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 FAMILY HISTORY: Patient's father passed at age 84, secondary to complications of prostate cancer. Patient's mother passed at age 88, secondary to complications of recurrent urinary tract infections. REVIEW OF SYSTEMS: A 12-point review of systems was performed. Pertinent positives and negatives are noted in history of present illness. PHYSICAL EXAMINATION: VITAL SIGNS: Temperature 98.4 degrees, heart rate 78, respirations 18, blood pressure is 134/68. GENERAL: Well nourished, well developed, no acute distress. HEENT: Normocephalic, atraumatic. Pupils equal, round, reactive to light. Extraocular muscles intact. Sclerae anicteric. [place] conjunctivae. Oral and nasopharynx clear without exudate. NECK: Supple. No lymphadenopathy. No thyromegaly. No bruits auscultated. CARDIOVASCULAR: Regular rate and rhythm. No significant murmurs, rubs, or gallops. PULMONARY: Clear to auscultation bilaterally. ABDOMEN: Soft, nontender, nondistended. Positive bowel sounds. EXTREMITIES: Moves all extremities well. No significant clubbing or cyanosis. Lower extremity 1+ edema bilaterally. NEUROLOGIC: Cranial nerves 2-12 are grossly intact. Motor and sensory are grossly intact. PSYCHOLOGIC: Examination is appropriate. LABORATORY AND DIAGNOSTIC DATA: White blood cell count 7.11, hemoglobin 12.0, hematocrit 36.7, platelet count is 216,000. Sodium 137, potassium 4.0, chloride 103, bicarbonate 23, BUN 22, creatinine 1.5, glucose 150, calcium 9.7. Total bilirubin 0.23, total protein 6.0, albumin 3.3, alkaline phosphatase 56, AST 14, ALT 11. TSH 0.23. Urinalysis revealed moderate leukocytes, negative bacteria. Chest x-ray revealed mildly prominent heart, otherwise negative examination. ASSESSMENT AND PLAN: A 78-year-old, white female, with a very complicated past medical history, presents for evaluation of profound weakness. Differential diagnosis is quite broad. The patient is currently being treated for Haemophilus influenzae bacteremia. The question is raised whether there has been a recurrent/incomplete resolution. Additionally, while hospitalized, patient had an episode of ventricular tachycardia. This certainly could be occurring once again. The patient was admitted to the hospital for a prolonged period of time, thus DVT and PTE is also to be considered. The patient will be admitted to the hospital for full evaluation and management of this condition. 1. Admit to General Medicine. 2. Profound fatigue. Differential diagnosis is quite broad. As this is acute onset, anticipate this may be a viral illness that will run its course. The patient will be treated supportively for now. We will follow patient on telemetry. We will follow up blood cultures. Should patient's condition persist, we will consider further evaluation and management. 3. Nausea and vomiting. Once again, I suspect this may be viral in etiology. We will evaluate. We will also remain aware that levofloxacin may be precipitating this. We will evaluate the patient with blood and urine cultures. We will continue supportive care for now. 4. Dehydration with acute on chronic renal failure. The patient's creatinine is above baseline. We will start patient on cautious hydration. 5. Haemophilus influenzae bacteremia. Patient is currently being treated with levofloxacin therapy. We will recheck blood cultures today. We will continue her current regimen of levofloxacin. 6. Epiglottitis. Recent laryngoscopy by Dr. Sales suggested resolution. We will remain aware. 7. Type 2 diabetes. We will continue patient's home medications. We will start patient on sliding scale insulin. 8. Reflux disease. We will continue patient on Nexium therapy. 9. Hypertension. Patient has a longstanding history of labile hypertension. At this point, we will change patient's clonidine to 0.1 mg twice daily for systolic blood pressure greater than 140. Certainly, hypotension may be contributing to her fatigue. 10. Osteoarthritis. Patient has advanced disease. We will continue her current regimen. 11. Fluid, electrolytes, nutrition. We will monitor electrolytes. Normal saline at KVO. Diabetic diet. 12. Prophylaxis. Patient will be placed on subcutaneous Lovenox. cc: Jorge Page MD
[2019-01-16] MEDS: VENTOLIN HFA INH PRN (01:17)
[2019-01-16] MEDS: HUMALOG SUBQ SCH ×3 (06:22→16:08)
[2019-01-16] MEDS: SYNTHROID PO SCH (06:33)
[2019-01-16] MEDS: TUMS PO SCH ×3 (09:34→16:12)
[2019-01-16] MEDS: NEXIUM PO SCH (09:34)
[2019-01-16] MEDS: VICON-C PO SCH (09:34)
[2019-01-16] MEDS: GLUCOSAMINE 500 MG/CHONDROITIN 400 MG PO SCH ×2 (09:35→19:49)
[2019-01-16] MEDS: COENZYME Q10 PO SCH (09:35)
[2019-01-16] MEDS: LEVAQUIN PO SCH (09:35)
[2019-01-16] MEDS: LAMICTAL PO SCH ×2 (09:35→19:50)
[2019-01-16] MEDS: VITAMIN D PO SCH ×3 (09:35→16:12)
[2019-01-16] MEDS: CYMBALTA PO SCH ×2 (09:35→19:49)
[2019-01-16] MEDS: COREG PO SCH ×2 (09:36→19:50)
[2019-01-16] MEDS: NORVASC PO SCH (09:36)
[2019-01-16] MEDS: LIORESAL PO SCH ×2 (09:36→19:50)
[2019-01-16] MEDS: PATIENT'S OWN MED PO SCH (09:37)
[2019-01-16] MEDS: NS 1,000 ML IV SCH (09:37)
[2019-01-16 10:09] LABS: CALCIUM 9.9 mg/dL (8.8-10.2); POTASSIUM 3.9 mmol/L (3.5-5.1)
[2019-01-16] MEDS ORDERED: TOBRAMYCIN 80 MG in NS 50 ML IV ONE (13:25)
--- NOTE | 2019-01-16 14:20 | PROGRESS NOTE ---
DATE: 01/16/2019 SUBJECTIVE: Mrs. Brynn Sr was admitted to [facility] on 01/15/[address] Jorge Page for acute on chronic renal failure. Her baseline creatinine is around 1.0 to 1.1. It was 1.5 on admission. She was given fluids overnight. Repeat BMP demonstrated a creatinine of 1.0. She is with complaint of diffuse muscle pain, muscle soreness and weakness. She is having difficulty getting out of bed. She is having difficulty getting out of a chair once seated. She is currently taking simvastatin. She also has been having nausea and vomiting. She did not have any nausea or vomiting over night. She does have a history of type 2 diabetes mellitus. OBJECTIVE: Blood sugars are ranging from 125 to 150. She is afebrile. Pulse 77, respirations 16, BP 154/66. CV regular rate and rhythm. Lungs: Clear. Abdomen: Soft, nontender, with active bowel sounds. Musculoskeletal: She has diffuse muscle tenderness. LABORATORY DATA: A urine culture is growing out gram-negative rods. ASSESSMENT AND PLAN: 1. Acute on chronic renal failure. Renal function is improving. We will continue gentle hydration. 2. Urinary tract infection. We will continue oral Levaquin and I will bolus her with IV tobramycin pending blood and urine cultures. 3. Type 2 [id number] diabetes mellitus. Given the renal insufficiency I am going to stop the metformin. We will continue patterned sugars and a Humulin R sliding scale. 4. Myalgias. I am going to hold the simvastatin check a CPK and aldolase. We will consult physical therapy. cc: MD Jorge Zheng MD
[2019-01-16] MEDS: LOVENOX SUBQ SCH (16:12)
[2019-01-16] MEDS: TYLENOL PO PRN (16:30)
[2019-01-16] MEDS: CATAPRES PO PRN (19:50)
[2019-01-17] MEDS: CYMBALTA PO SCH ×3 (01:42→21:27)
[2019-01-17] MEDS: LIORESAL PO SCH ×3 (01:42→21:27)
[2019-01-17] MEDS: COREG PO SCH ×3 (01:42→21:27)
[2019-01-17] MEDS: LAMICTAL PO SCH ×3 (01:42→21:28)
[2019-01-17] MEDS: GLUCOSAMINE 500 MG/CHONDROITIN 400 MG PO SCH ×3 (01:42→21:28)
[2019-01-17] MEDS: HUMALOG SUBQ SCH ×5 (01:43→21:28)
[2019-01-17] MEDS: NS 1,000 ML IV SCH ×4 (01:43→19:21)
[2019-01-17] MEDS: SYNTHROID PO SCH (06:11)
--- NOTE | 2019-01-17 07:26 | PROGRESS NOTE ---
DATE: 01/17/2019 Ms. Sr was admitted to [facility] with acute on chronic renal failure. We have rehydrated her with normal saline. Her creatinine has dropped from 1.5 to 1.0. She is having fewer muscle aches in the upper extremities but she still has muscle soreness and weakness in the lower extremities. Her CPK was normal and aldolase is pending. We had held her simvastatin. Blood sugars are ranging from 112 to 146 off metformin. She has had no further nausea or vomiting. She does have a urinary tract infection. Blood cultures x2 are negative. Urine culture is growing out gram-negative rods. She has been bolused with tobramycin and is taking oral Levaquin. She had her initial physical therapy evaluation yesterday. She required minimal assist with sitting to standing. She had standby assist with supine to sitting. She was able to walk with a front wheel walker approximately 200 feet. OBJECTIVE: Vital Signs: Temperature 97.9 degrees, pulse 86, BP 162/96, O2 saturation 95% on room air. CARDIOVASCULAR: Regular rate and rhythm. Lungs: Clear. Abdomen: Soft, nontender, with active bowel sounds. ASSESSMENT AND PLAN: 1. Myalgias and muscle weakness. We will continue to hold the simvastatin. We will continue physical therapy. If the muscle pain persists off statins then potentially she would benefit from EMG studies to rule out a myopathy. I will consult [employer] Manager to help arrange for home health. 2. Acute on chronic renal failure secondary to volume depletion. We will continue fluid resuscitation and recheck a BMP this morning. 3. Type 2 [id number] diabetes mellitus. Blood sugars are ranging from 112 to 146. I am going to add Actos 15 mg daily. We will continue pattern sugars and a Humulin R sliding scale. cc: MD Jorge Zheng MD
[2019-01-17] MEDS: ACTOS PO SCH (09:54)
[2019-01-17] MEDS: NEXIUM PO SCH (09:54)
[2019-01-17] MEDS: TUMS PO SCH ×3 (09:54→17:21)
[2019-01-17] MEDS: COENZYME Q10 PO SCH (09:54)
[2019-01-17] MEDS: LEVAQUIN PO SCH (09:54)
[2019-01-17] MEDS: NORVASC PO SCH (09:55)
[2019-01-17] MEDS: PATIENT'S OWN MED PO SCH (09:55)
[2019-01-17] MEDS: VITAMIN D PO SCH ×3 (09:55→17:21)
[2019-01-17] MEDS: VICON-C PO SCH (09:55)
[2019-01-17 10:08] LABS: HEMATOCRIT 32.6 % (37.0-47.0); HEMOGLOBIN 10.7 g/dL (12.0-16.0); MCH 29.4 PG (27-31); MCHC 32.8 g/dL (33-37); MCV 89.6 FL (81-99); MPV 8.4 FL (7.4-10.4); RBC 3.64 XMIL (4.2-5.4); RDW 15.8 % (11.5-14.5); WBC 4.86 X1000 (4.8-10.8)
[2019-01-17 10:30] LABS: CALCIUM 9.8 mg/dL (8.8-10.2); CREATININE 1.1 mg/dL (0.5-0.9); POTASSIUM 3.6 mmol/L (3.5-5.1)
--- NOTE | 2019-01-17 10:34 | Extremity Venous Study ---
PROCEDURE NAME: Venous U/S Bilateral Legs - 01/16/2019 REQUESTING PHYSICIAN: Dr. Jorge Page. READING PHYSICIAN: Dr. Erick Thrasher. ORGAN FIXER: Johnny. INDICATION: Shortness of breath and swelling. COMPARISON STUDY: 08/30/2018. FINDINGS: The deep and superficial veins of both lower extremities were imaged throughout their course. They are compressible, patent and without thrombus. INTERPRETATION: No DVT or SVT of either lower extremity. This is unchanged from the prior study. cc: MD Jorge Haines MD
[2019-01-17] MEDS: LOVENOX SUBQ SCH (17:22)
[2019-01-17] MEDS: CEFTIN PO SCH (22:00)
[2019-01-18] MEDS: NS 1,000 ML IV SCH ×2 (01:30→09:05)
[2019-01-18] MEDS: SYNTHROID PO SCH (06:19)
[2019-01-18] MEDS: HUMALOG SUBQ SCH ×4 (06:19→21:29)
[2019-01-18] MEDS: VITAMIN D PO SCH ×3 (08:56→16:12)
[2019-01-18] MEDS: NORVASC PO SCH (08:56)
[2019-01-18] MEDS: LEVAQUIN PO SCH (08:56)
[2019-01-18] MEDS: ACTOS PO SCH (08:56)
[2019-01-18] MEDS: CYMBALTA PO SCH ×2 (08:56→21:28)
[2019-01-18] MEDS: VICON-C PO SCH (08:56)
[2019-01-18] MEDS: CEFTIN PO SCH ×2 (08:56→21:29)
[2019-01-18] MEDS: LIORESAL PO SCH ×2 (08:57→21:28)
[2019-01-18] MEDS: GLUCOSAMINE 500 MG/CHONDROITIN 400 MG PO SCH ×2 (08:57→21:29)
[2019-01-18] MEDS: LAMICTAL PO SCH ×2 (08:57→21:28)
[2019-01-18] MEDS: NEXIUM PO SCH (08:57)
[2019-01-18] MEDS: TUMS PO SCH ×3 (08:59→16:12)
[2019-01-18] MEDS: COREG PO SCH ×2 (09:01→21:28)
[2019-01-18] MEDS: COENZYME Q10 PO SCH (09:01)
[2019-01-18] MEDS: PATIENT'S OWN MED PO SCH (09:02)
--- NOTE | 2019-01-18 09:35 | PROGRESS NOTE ---
DATE: 01/18/2019 SUBJECTIVE: Ms. Sr is feeling stronger. She is still not where she thinks she needs to be. She was sitting up and about to eat breakfast, but is less sore and feels a little stronger. OBJECTIVE: Temperature is 98.0, pulse 74, respirations 18, blood pressure 185/72. Blood pressures have ranged between 144 and 185 over 57 to 80. Pupils are equal. No distended neck veins. Lungs are clear anterolateral and posterior. Cardiovascular: Regular rhythm and rate without murmur or S3. Abdomen is soft. Skin is warm and dry. Urine output is 1100 mL. DIAGNOSTIC DATA: Blood sugars ranging from 112 to 146. Her labs from yesterday were reviewed. White count was 4860, hematocrit 32, platelet count 193,000. Sodium was 130, potassium 3.6, chloride 103, BUN was 16, creatinine 1.1, blood sugars were 196, 154, 149, 144. ASSESSMENT AND PLAN: 1. Myalgia, muscle weakness, general weakness. They have held the simvastatin. She does seem to be doing better. Continue physical therapy. 2. Acute on chronic renal failure. Renal function looks good. Volume depletion corrected. 3. Diabetes mellitus type 2. They have added Actos 15 mg a day. 4. On review of her orders, she is getting physical therapy. Blood pressure running a little on the higher side. She is on Coreg 25 mg q.12, Norvasc 5 mg a day, Lioresal or baclofen 10 mg b.i.d., Catapres 0.1 mg b.i.d. p.r.n., Cymbalta 60 mg b.i.d., Nexium 40 mg a day, glucosamine chondroitin 1 tablet b.i.d., Lamictal 100 mg b.i.d. They are giving her Levaquin 500 mg daily p.o., Synthroid 100 mcg p.o. daily, Claritin 10 mg a day. She is getting fluid with normal saline at 75 mL an hour. She was started on Actos 15 mg a day, MiraLAX 17 g a day and getting coenzyme 100 mg daily. Review again of labs, her labs since she has been here, her creatinine was 1.5 when she came in and is down to 1.0. cc: MD Jorge Dumont MD
[2019-01-18] MEDS: CATAPRES PO PRN (16:10)
[2019-01-18] MEDS: LOVENOX SUBQ SCH (16:10)
[2019-01-18] MEDS: TYLENOL PO PRN (21:27)
[2019-01-19] MEDS: NS 1,000 ML IV SCH ×2 (04:40→12:10)
[2019-01-19] MEDS: HUMALOG SUBQ SCH ×4 (06:25→20:25)
[2019-01-19] MEDS: SYNTHROID PO SCH (06:25)
[2019-01-19 07:51] LABS: FREE T4 1.19 ng/dL (0.93-1.70); TSH 0.25 uIUmL (0.27-4.20)
[2019-01-19] MEDS: ACTOS PO SCH (08:59)
[2019-01-19] MEDS: NEXIUM PO SCH (08:59)
[2019-01-19] MEDS: GLUCOSAMINE 500 MG/CHONDROITIN 400 MG PO SCH ×2 (09:00→20:22)
[2019-01-19] MEDS: VICON-C PO SCH (09:00)
[2019-01-19] MEDS: CEFTIN PO SCH ×2 (09:00→20:21)
[2019-01-19] MEDS: LAMICTAL PO SCH ×2 (09:00→20:23)
[2019-01-19] MEDS: NORVASC PO SCH (09:00)
[2019-01-19] MEDS: COREG PO SCH ×2 (09:00→20:22)
[2019-01-19] MEDS: COENZYME Q10 PO SCH (09:00)
[2019-01-19] MEDS: LEVAQUIN PO SCH (09:00)
[2019-01-19] MEDS: CYMBALTA PO SCH ×2 (09:00→20:23)
[2019-01-19] MEDS: LIORESAL PO SCH ×2 (09:00→20:24)
[2019-01-19] MEDS: CATAPRES PO PRN (09:00)
[2019-01-19] MEDS: PATIENT'S OWN MED PO SCH (09:01)
[2019-01-19] MEDS: TUMS PO SCH ×3 (09:02→17:10)
[2019-01-19] MEDS: VITAMIN D PO SCH ×3 (09:04→17:10)
--- NOTE | 2019-01-19 10:26 | PROGRESS NOTE ---
DATE: 01/19/2019 SUBJECTIVE: I had a long discussion with the patient about her progress. She did well with physical therapy yesterday, but does not feel that she is steady enough to go home on her own quite today. I actually watched her get up and go into the restroom with the nurse and she indeed appeared to need considerable help in getting up and moving. OBJECTIVE: Vital Signs: 97.8, 81, 18, 189/73, 98% saturated on room air. An overview of the patient's blood pressure shows some fairly significant fluctuations. She has a wide pulse pressure. Lungs: Clear. Cardiovascular: Regular. Neuropsych: The patient is alert, oriented, conversive and appropriate. Speech is clear. LABORATORY DATA: Serum cortisol level was 7.9, B12 510, TSH 0.25. Folate was normal. ASSESSMENT AND PLAN: 1. The patient's fatigue and overall weakness seems to be improving, but I do not think she is capable of going home for independent living quite yet. Physical therapy notes indicated that she would be a good candidate for outpatient rehab. Her home situation needs to be such that she can get out and do that as well. I am going to give her another day and hopefully the nursing staff can get her out because physical therapy will unlikely be coming around today. 2. Nausea and vomiting is resolved. 3. Acute on chronic renal failure has been addressed with some cautious hydration. 4. History of epiglottitis. This seemed to have resolved. 5. Type 2 diabetes is stable according to her insulin checks. 6. The patient's hypertension has somewhat fluctuated. She has a wide pulse pressure and in the past, had been on clonidine at home on a regular dosing schedule of 3 times daily. I believe she was taken off this at some point because of hypotension. I am going to try her back on twice a day scheduled doses of clonidine and see if this smooths things out. 7. The patient is on subcutaneous Lovenox for deep venous thrombosis prophylaxis. cc: MD Jorge Cruz MD
[2019-01-19] MEDS: VENTOLIN HFA INH PRN (10:29)
[2019-01-19] MEDS: LOVENOX SUBQ SCH (17:10)
[2019-01-19] MEDS ORDERED: CATAPRES PO PRN (21:00)
[2019-01-20] MEDS: NS 1,000 ML IV SCH ×2 (01:47→16:33)
[2019-01-20] MEDS: SYNTHROID PO SCH (06:41)
[2019-01-20] MEDS: HUMALOG SUBQ SCH ×4 (06:41→20:59)
[2019-01-20] MEDS: COENZYME Q10 PO SCH (09:24)
[2019-01-20] MEDS: NORVASC PO SCH (09:24)
[2019-01-20] MEDS: VICON-C PO SCH (09:24)
[2019-01-20] MEDS: CEFTIN PO SCH ×2 (09:24→20:54)
[2019-01-20] MEDS: CYMBALTA PO SCH ×2 (09:24→20:54)
[2019-01-20] MEDS: LEVAQUIN PO SCH (09:24)
[2019-01-20] MEDS: GLUCOSAMINE 500 MG/CHONDROITIN 400 MG PO SCH ×2 (09:24→20:54)
[2019-01-20] MEDS: LAMICTAL PO SCH ×2 (09:24→20:54)
[2019-01-20] MEDS: VITAMIN D PO SCH ×3 (09:24→18:30)
[2019-01-20] MEDS: NEXIUM PO SCH (09:24)
[2019-01-20] MEDS: ACTOS PO SCH (09:24)
[2019-01-20] MEDS: PATIENT'S OWN MED PO SCH (09:25)
[2019-01-20] MEDS: TUMS PO SCH ×3 (09:25→18:30)
[2019-01-20] MEDS: COREG PO SCH ×2 (09:25→20:54)
[2019-01-20] MEDS: LIORESAL PO SCH ×2 (09:25→20:54)
--- NOTE | 2019-01-20 10:04 | PROGRESS NOTE ---
DATE: 01/20/2019 SUBJECTIVE: The patient still says she is weak and wobbly on her feet. She walked with assistance in the hallway yesterday for a bit, but states that she is not ready to return home. Although she lives with her , she states that he is "in no shape to help me." OBJECTIVE: Vital Signs: 97.8, 73, 17, 152/63, 98% saturated on room air. General: The patient is alert, oriented, conversive and appropriate. Cardiovascular: Regular. Lungs are clear. LABORATORY: The patient's blood sugar is reasonably within range. ASSESSMENT AND PLAN: 1. The patient's fatigue and overall weakness seems to be improving, albeit slowly. She does not want to do inpatient rehabilitation, but is not yet ready to return home. Hopefully, some compromise of outpatient rehabilitation can be made. One of her big hindrances is that her house has stairs in it, and she does not think she will be able to get up those at the present time. 2. Nausea and vomiting, resolved. 3. Acute on chronic renal failure has been addressed with cautious hydration. 4. History of epiglottitis. Aware. 5. Diabetes, type 2, stable. 6. We made the addition of clonidine twice daily to her regimen for blood pressure yesterday, and although there has been some improvement, her blood pressures have not been consistent. 7. Subcutaneous Lovenox for deep venous thrombosis prophylaxis. cc: MD Jorge Cruz MD
[2019-01-20] MEDS: LOVENOX SUBQ SCH (18:30)
[2019-01-20] MEDS: MIRALAX PO PRN (20:55)
[2019-01-21] MEDS: TYLENOL PO PRN ×2 (00:35→11:10)
[2019-01-21] MEDS: NS 1,000 ML IV SCH (05:32)
[2019-01-21] MEDS: HUMALOG SUBQ SCH ×4 (06:30→22:14)
[2019-01-21] MEDS: SYNTHROID PO SCH (06:31)
[2019-01-21] MEDS: NEXIUM PO SCH (08:10)
[2019-01-21] MEDS: GLUCOSAMINE 500 MG/CHONDROITIN 400 MG PO SCH ×2 (08:10→22:14)
[2019-01-21] MEDS: CYMBALTA PO SCH ×2 (08:10→22:13)
[2019-01-21] MEDS: CEFTIN PO SCH ×2 (08:10→22:12)
[2019-01-21] MEDS: NORVASC PO SCH (08:10)
[2019-01-21] MEDS: LAMICTAL PO SCH ×2 (08:10→22:13)
[2019-01-21] MEDS: LEVAQUIN PO SCH (08:10)
[2019-01-21] MEDS: COENZYME Q10 PO SCH (08:11)
[2019-01-21] MEDS: VICON-C PO SCH (08:11)
[2019-01-21] MEDS: ACTOS PO SCH (08:11)
[2019-01-21] MEDS: VITAMIN D PO SCH ×3 (08:11→18:25)
[2019-01-21] MEDS: LIORESAL PO SCH ×2 (08:11→22:13)
[2019-01-21] MEDS: TUMS PO SCH ×3 (08:12→18:26)
[2019-01-21] MEDS: COREG PO SCH ×2 (08:16→22:14)
[2019-01-21] MEDS: PATIENT'S OWN MED PO SCH (11:02)
[2019-01-21] MEDS: CATAPRES PO SCH ×2 (11:07→22:13)
[2019-01-21] MEDS: LOVENOX SUBQ SCH (18:25)
[2019-01-21] MEDS: MACROBID PO SCH (23:37)
--- NOTE | 2019-01-21 23:37 | PROGRESS NOTE ---
DATE: 01/21/2019 SUBJECTIVE: The patient's chart was reviewed. In summary, over the weekend the patient was treated supportively. Urinalysis ultimately grew E. coli. She is being treated with antibiotic intervention. Energy level has slowly improved with physical therapy and activity. Her diffuse myalgias also have demonstrated improvement. Over the course of the last 24 hours, the patient notes further improvement. Upon my arrival this morning, she was eating breakfast. Throughout the day today, the patient again walked with physical therapy. This evening she supports continued improvement. She denies fevers, chills, nausea, vomiting, shortness of breath or chest discomfort. OBJECTIVE: T-max 99.4 degrees, heart rate 71 to 92, respirations 17 to 19, blood pressure 149 to 170 over 71 to 82.General: Chronically ill appearing, no acute distress. Cardiovascular: Regular rate and rhythm. No significant murmurs, rubs or gallops. Pulmonary: Clear to auscultation bilaterally. Abdomen: Soft, nontender, nondistended. Positive bowel sounds. Extremities: Moves all extremities well. No significant clubbing, cyanosis or edema. Dermatologic: Evaluation reveals no evidence of rash. LABORATORY DATA: None. ASSESSMENT AND PLAN: 1. Profound fatigue: This likely is multifactorial. We will treat urinary tract infection as below. We will continue physical therapy and encourage p.o. intake. We will remain aware that levofloxacin therapy may be playing a role in her overall feeling of ill-being. 2. Nausea and vomiting: This has resolved. We will remain aware. 3. Dehydration with [id number]-ofzdfbb renal failure: The patient's creatinine has returned to baseline. We will follow this. 4. Haemophilus influenzae bacteremia: We will continue the patient on home Levaquin therapy per Dr. Ferguson. 5. Urinary tract infection: The patient's urine culture grew a resistant Escherichia coli. We will transition the patient to Macrobid therapy. 6. Epiglottitis: This is a recent diagnosis. Symptoms are improving. 7. Type 2 diabetes: Blood sugars are reasonably controlled on her home regimen. 8. Reflux disease: We will continue the patient on Nexium therapy. 9. Hypertension: Unfortunately, the patient's blood pressure is elevated. Clonidine was added this morning. We will follow this. 10. Osteoarthritis: The patient has advanced disease. We will continue supportive care. 11. Fluid, electrolytes and nutrition: We will monitor electrolytes. 12. Disposition: At this point, the patient continues to require correction care in a hospital setting. We will plan discharge home once appropriate. cc: Jorge Page MD
[2019-01-22 06:36] LABS: BASO# 0.04 X1000 (0.0-0.2); BASO% 0.6 % (0.0-0.8); EOS# 0.27 X1000 (0.0-0.7); EOS% 4.3 % (0.0-10.0); HEMATOCRIT 33.6 % (37.0-47.0); HEMOGLOBIN 10.9 g/dL (12.0-16.0); IMM GRAN# 0.11 X1000 (0.0-0.04); IMM GRAN% 1.8 % (0.0-0.5); LYMPH# 2.04 X1000 (1.2-3.4); LYMPH% 32.7 % (20.5-51.1); MCH 28.6 PG (27-31); MCHC 32.4 g/dL (33-37); MCV 88.2 FL (81-99); MONO# 0.85 X1000 (0.11-0.59); MONO% 13.6 % (1.7-9.3); MPV 8.6 FL (7.4-10.4); NEUT# 2.93 X1000 (1.4-6.5); PLT 245 X1000 (130-400); RBC 3.81 XMIL (4.2-5.4); RDW 16.4 % (11.5-14.5); WBC 6.24 X1000 (4.8-10.8)
[2019-01-22] MEDS: SYNTHROID PO SCH (06:43)
[2019-01-22] MEDS: HUMALOG SUBQ SCH ×4 (06:45→22:13)
[2019-01-22 07:02] LABS: AGAP 9; ALB/GLOB RATIO 1.9; ALBUMIN 3.6 g/dL (3.5-5.0); ALKALINE PHOSPHATASE 62 U/L (32-104); BUN 27 mg/dL (8-22); CALCIUM 10.7 mg/dL (8.8-10.2); CHLORIDE 107 mmol/L (98-107); COSMO 289; ESTIMATED GFR 54; GLUCOSE 119 mg/dL (70-104); GOT 13 U/L (10-30); GPT 11 U/L (10-36); POTASSIUM 4.7 mmol/L (3.5-5.1); SODIUM 142 mmol/L (136-145); TCO2 26 mmol/L (25-35); TOTAL BILIRUBIN < 0.15 mg/dL (0.20-1.00); TOTAL PROTEIN 5.5 g/dL (6.3-8.3)
[2019-01-22] MEDS: LAMICTAL PO SCH ×2 (08:40→22:13)
[2019-01-22] MEDS: LEVAQUIN PO SCH (08:40)
[2019-01-22] MEDS: NEXIUM PO SCH (08:41)
[2019-01-22] MEDS: ACTOS PO SCH (08:41)
[2019-01-22] MEDS: CYMBALTA PO SCH ×2 (08:41→22:12)
[2019-01-22] MEDS: GLUCOSAMINE 500 MG/CHONDROITIN 400 MG PO SCH ×2 (08:41→22:12)
[2019-01-22] MEDS: NORVASC PO SCH (08:41)
[2019-01-22] MEDS: MACROBID PO SCH ×2 (08:41→22:12)
[2019-01-22] MEDS: CATAPRES PO SCH ×3 (08:41→22:13)
[2019-01-22] MEDS: COENZYME Q10 PO SCH (08:41)
[2019-01-22] MEDS: VICON-C PO SCH (08:41)
[2019-01-22] MEDS: VITAMIN D PO SCH ×3 (08:42→17:37)
[2019-01-22] MEDS: LIORESAL PO SCH ×2 (08:42→22:12)
[2019-01-22] MEDS: TUMS PO SCH ×3 (08:42→17:38)
[2019-01-22] MEDS: PATIENT'S OWN MED PO SCH (08:46)
[2019-01-22] MEDS: COREG PO SCH ×2 (08:49→22:13)
[2019-01-22] MEDS: MIRALAX PO PRN (12:50)
--- NOTE | 2019-01-22 16:22 | PROGRESS NOTE ---
DATE: 01/22/2019 SUBJECTIVE: Upon my arrival this morning, patient was sitting upright in bed. The patient does note improving energy as well as decreasing diffuse pain. Throughout the day, patient worked with physical therapy. She has achieved significant improvement since hospitalization. This evening, patient again states she is feeling reasonably well. She denies fevers, chills, nausea, vomiting, shortness of breath, or chest discomfort. OBJECTIVE: T-max 98.0 degrees, heart rate 72 to 84, respirations 14 to 20, blood pressure 143 to 170 over 63 to 79.General: Well nourished, well developed, no acute distress. Cardiovascular: Regular rate and rhythm. No significant murmurs, rubs, or gallops. Pulmonary: Clear to auscultation bilaterally. Abdomen: Soft, nontender, nondistended. Positive bowel sounds. Extremities: Moves all extremities well. No significant clubbing, cyanosis, or edema. Dermatologic: Evaluation reveals no evidence of rash. LABORATORY DATA: White blood cell count 6.24, hemoglobin 10.9, hematocrit 33.6, platelet count 245,000, sodium 142, potassium 4.7, chloride 107, bicarb 26, BUN 27, creatinine 1.0, glucose 119, calcium 10.7, total bilirubin is less than 0.15, total protein 5.5, albumin 3.6, alkaline phosphatase 62, AST 13, ALT 11. ASSESSMENT AND PLAN: 1. Profound fatigue and weakness-patient has achieved improvement with treatment of her underlying urinary tract infection and physical therapy. We will remain aware that levofloxacin may be contributing to her underlying fatigue. For now, we will continue inpatient physical therapy. At discharge, we will transition to outpatient physical therapy. We will encourage activity. 2. Nausea and vomiting-patient has achieved resolution. 3. Dehydration with acute on chronic renal failure--the patient's creatinine has returned to baseline. We will encourage p.o. intake. 4. Haemophilus influenzae bacteremia-the patient is currently being treated with levofloxacin therapy per Dr. Ferguson. As above, we will remain aware that chronic antibiotic intervention may be contributing to fatigue and feeling of ill being. 5. Urinary tract infection-urine culture grew Escherichia coli. Patient was transitioned to Macrobid yesterday. We will continue this. 6. Epiglottitis-the patient has achieved improvement in overall symptoms. 7. Type 2 diabetes-the patient will be continued on home regimen. Blood sugars are reasonably controlled. 8. Reflux disease-we will continue patient on Nexium therapy. 9. Hypertension-blood pressure remains elevated. We will increase patient's clonidine to 3 times daily. This will be followed. 10. Osteoarthritis-patient has advanced disease. We will continue supportive care. 11. Disposition-at this point, patient continues to require alf care in a hospital setting. I anticipate discharge to home with physical therapy in the AM. cc: Jorge Page MD
[2019-01-22] MEDS: LOVENOX SUBQ SCH (17:37)
[2019-01-23] MEDS: SYNTHROID PO SCH (06:36)
[2019-01-23] MEDS: HUMALOG SUBQ SCH (06:37)
[2019-01-23 07:39] VITALS: BP 150/73
[2019-01-23] MEDS: CYMBALTA PO SCH (08:55)
[2019-01-23] MEDS: LIORESAL PO SCH (08:56)
[2019-01-23] MEDS: COENZYME Q10 PO SCH (08:56)
[2019-01-23] MEDS: GLUCOSAMINE 500 MG/CHONDROITIN 400 MG PO SCH (08:56)
[2019-01-23] MEDS: VITAMIN D PO SCH (08:56)
[2019-01-23] MEDS: MACROBID PO SCH (08:56)
[2019-01-23] MEDS: VICON-C PO SCH (08:56)
[2019-01-23] MEDS: NEXIUM PO SCH (08:56)
[2019-01-23] MEDS: CATAPRES PO SCH (08:56)
[2019-01-23] MEDS: ACTOS PO SCH (08:56)
[2019-01-23] MEDS: NORVASC PO SCH (08:57)
[2019-01-23] MEDS: LEVAQUIN PO SCH (08:57)
[2019-01-23] MEDS: LAMICTAL PO SCH (10:11)
[2019-01-23] MEDS: PATIENT'S OWN MED PO SCH (10:12)
[2019-01-23] MEDS: TUMS PO SCH (10:12)
--- NOTE | 2019-01-23 10:14 | Diag Imaging Result Doc PS360 ---
EXAM: SHOULDER-RIGHT 01/23/2019 HISTORY: pain TECHNIQUE: Right shoulder two views COMMENT: There are degenerative changes in the acromioclavicular joint and glenohumeral joint. There is no evidence of acute fracture or dislocation. IMPRESSION: Osteoarthritis. Electronically signed by Tyler Ahmadi 01/23/2019 10:12 AM
--- NOTE | 2019-01-23 10:15 | Diag Imaging Result Doc PS360 ---
EXAM: SHOULDER-LEFT 01/23/2019 HISTORY: pain TECHNIQUE: Two views COMMENT: There are subchondral cysts in the humeral head and glenoid. There is no evidence of fracture or dislocation. IMPRESSION: Osteoarthritis. Electronically signed by Tyler Ahmadi 01/23/2019 10:12 AM
[2019-01-23] MEDS: COREG PO SCH (10:38)
--- NOTE | 2019-01-24 22:02 | DISCHARGE SUMMARY ---
ADMISSION DATE: 01/15/2019 DISCHARGE DATE: 01/23/2019 ADMISSION DIAGNOSES: 1. Profound weakness. 2. Nausea. 3. Vomiting. DISCHARGE DIAGNOSES: 1. Profound weakness, improving. 2. Nausea/vomiting, resolved. 3. Dehydration with acute on chronic renal failure, improved. 4. Urinary tract infection secondary to Escherichia coli, treated. 5. Haemophilus influenzae bacteremia, present on arrival. 6. Epiglottitis, present on arrival. 7. Type 2 diabetes, present on arrival. 8. Reflux disease, present on arrival. 9. Hypertension, present on arrival. 10. Osteoarthritis, present on arrival. CONSULTATIONS: None. PROCEDURES: 1. Lower extremity venous Doppler's on 01/15/2019, revealed no evidence of DVT. 2. Chest x-ray on 01/15/2019, revealed mildly prominent heart, otherwise negative examination. 3. Bilateral shoulder x-rays revealed no evidence of acute disease. HISTORY AND PHYSICAL EXAMINATION: See admit note. PHYSICAL EXAMINATION PRIOR TO DISCHARGE: Temperature 97.5 degrees, heart rate 71, respirations 18, blood pressure is 150/73. General: Well nourished, well developed, no acute distress. Cardiovascular: Regular rate and rhythm. No significant murmurs, rubs, or gallops. Pulmonary: Clear to auscultation bilaterally. Abdomen: Soft, nontender, nondistended. Positive bowel sounds. Extremities: Moves all extremities well. No significant clubbing, cyanosis, or edema. Dermatologic: Evaluation reveals no evidence of rash. LABORATORY DATA: None. ASSESSMENT AND PLAN: 1. Profound weakness and fatigue. This likely is multifactorial. Patient recently was diagnosed with Haemophilus influenzae bacteremia. She is currently being treated with daily Levaquin therapy. Additionally, patient was found to have a urinary tract infection. Each of these infections likely contributed to her weakness. With physical therapy, patient achieved improvement. We will continue to encourage activity. 2. Nausea/vomiting. Patient has achieved resolution while hospitalized. 3. Dehydration with acute on chronic renal failure. The patient was treated with IV fluids. Discharge BUN and creatinine are 27 and 1.0. 4. Haemophilus influenzae bacteremia. Patient is currently being treated with levofloxacin therapy per Dr. Ferguson. This was continued while hospitalized. I have encouraged followup with Dr. Ferguson as an outpatient. 5. Urinary tract infection. The patient's urine grew Escherichia coli. Macrobid was added. Patient will be treated with Macrobid for an additional 5 days. 6. Epiglottitis. Patient has achieved improvement in her overall condition. We will continue to follow along with Dr. Sales. 7. Type 2 diabetes. The patient's blood sugars remained reasonably controlled on her current regimen. 8. Reflux disease. We will continue patient on Nexium therapy. 9. Hypertension. Patient's blood pressure has remained elevated throughout hospitalization. At time of discharge, we will increase clonidine to 3 times daily. Otherwise, we will continue her current regimen. 10. Osteoarthritis. The patient is being treated with supportive care. Bilateral shoulder x-rays returned with osteoarthritic changes. DISCHARGE CONDITION: Good. DISPOSITION: Discharge to home with outpatient physical therapy. MEDICATIONS: 1. Macrobid 100 mg twice daily for 5 days. 2. Metformin 500 mg twice daily. 3. Lamotrigine 100 mg twice daily. 4. Baclofen 10 mg twice daily. 5. Amlodipine 5 mg daily. 6. Glucosamine and chondroitin twice daily. 7. Calcium carbonate 500 mg 3 times daily. 8. Cymbalta 60 mg twice daily. 9. Cinnamon bark 500 mg daily. 10. Vitamin B complex 1 tablet daily. 11. Levothyroxine 100 mcg daily. 12. Nexium 40 mg daily. 13. Clonidine 0.1 mg 3 times daily. 14. Carvedilol 25 mg every 12 hours. 15. MiraLAX 17 g in 8 ounces of juice daily as needed. 16. Levaquin [address] Ferguson. 17. Claritin 10 mg daily as needed. 18. Co-Q10, 100 mg daily. 19. ProAir HFA 1 to 2 puffs every 4-6 hours as needed. 20. Vitamin D3, 1000 mg 3 times daily. FOLLOWUP: The patient is to follow up with me in approximately 1 to 2 weeks. cc: Jorge Page MD
== END 2019-01-23 11:28 | disposition home or self-care (01) | DRG 683 ==
LOC: DIRADM 14:20 → EDIPHOLD 15:57 → 3N 18:34
PROVIDERS: ADMIT Internal Medicine; ATTEND Internal Medicine

== ENCOUNTER 2019-04-20 17:44 | Inpatient (IN) ==
[2019-04-20] MEDS ORDERED: TORADOL IM ONE (17:55)
[2019-04-20] MEDS ORDERED: NS 1,000 ML IV ONE (18:58)
--- NOTE | 2019-04-20 18:59 | PROVIDER DOCUMENTATION ---
This chart was entered by Herbert Ocasio Scribe, acting as scribe for Jessee Goodwin MD. HPI-Musculoskeletal Pain/Inj - GENERAL Source: patient - HX OF PRESENT ILLNESS-MUSKULOSKELTAL Quality of Pain: reports: aching Severity in ED: moderate Onset/Duration: just prior to arrival Timing: still present Modifying Factors: improves with: nothing Any recent injury?: No Locality of Occurance: Other (daughters home) Similar Symptoms Previously?: No Recently seen or treated by another doctor?: No - FALL INJURY Location of Pain/Injury: reports: upper extremity (left), other (left ribs). denies: neck, back Reason for Fall: reports: tripped Symptoms prior to fall:: reports: none Loss of Consciousness: no loss of consciousness Injury Associated Symptoms: reports: joint pain, muscle aches. denies: dizziness, puncture wound, shortness of breath, vomiting <Jessee Goodwin - Last Filed: 04/20/19 18:59> <Erick Valdivia - Last Filed: 04/20/19 20:55> - GENERAL Stated Complaint: FALL Time Seen by Provider: 04/20/19 17:48 - HX OF PRESENT ILLNESS-MUSKULOSKELTAL Nature of Presenting Problem: Pt is a 79 y/o F presents to the ED post fall complaining of left sided pain in ribs, arm and hand. She reports she was going down the steps at her daughters w hen she fell. She says she hit her body first then her head. She denies neck pain and dizziness. (Jessee Goodwin) Review of Systems - Adult - REVIEW OF SYSTEMS - ADULT Constitutional: denies: chills, fever Eyes: reports: no symptoms reported Ears, Nose, Mouth & Throat: reports: no symptoms reported Cardiovascular: denies: chest pain, edema, palpitations Respiratory: denies: cough, shortness of breath Gastrointestinal: denies: abdominal pain, nausea, vomiting Genitourinary: reports: no symptoms reported Musculoskeletal: reports: bone pain (ribs, left upper arm and left hand 4th and 5th digits). denies: back pain, joint pain, neck pain Integumentary: reports: no symptoms reported Neurological: denies: dizziness/vertigo, headache/migraines Psychiatric: reports: no symptoms reported Endocrine: reports: no symptoms reported Hematologic/Lymphatic: reports: no symptoms reported Allergic/Immunologic: reports: no symptoms reported All Other Systems: Reviewed and Negative <Jessee Goodwin - Last Filed: 04/20/19 18:59> Past History - Adult - PAST MEDICAL HISTORY-ADULT Review of Records: reports: Old Records Reviewed, Nursing Assessment Review, Medications Reviewed Major Childhood Illnesses: reports: denies history Cardiovascular: reports: HTN Respiratory: reports: denies history Gastrointestinal: reports: denies history Obstetrical/Gynecological: reports: denies history Genitourinary: reports: other (renal disease) Musculoskeletal: reports: denies history Neurological: reports: denies history Endocrine/Immune: reports: Diabetes Other Conditions: reports: denies history - PRIOR SURGERIES/PROCEDURES Surgical/Procedure History: reports: cholecystectomy, hysterectomy, other (back, foot) - IMMUNIZATION STATUS Childhood Immunizations: See Nurse Assessment Flu Vaccine: See Nurse Assessment - FAMILY HISTORY Family History: reviewed, not pertinent - SOCIAL HISTORY Smoking: non-smoker, quit greater than 1 year Substance Use: none/never <Jessee Goodwin - Last Filed: 04/20/19 18:59> Physical Exam-Injury Related - Physical Exam-Injury Related Initial Vital Signs Reviewed: Yes General Appearance: appears well, alert, no apparent distress Immobilization?: negative: backboard, C-collar Eyes: PERRL/EOMI, pink conjunctivae Head, Ears, Nose, Mouth & Throat: moist mucous membranes, normal ENT inspection Neck: non-tender, full range of motion, supple, normal inspection Respiratory: lungs clear, normal breath sounds Cardiovascular: normal peripheral pulses, regular rate, rhythm Back Exam: normal inspection, no CVA tenderness Extremity: normal capillary refill, erythema (left hand 4th and 5th digit), swelling (left hand), tenderness (left ribs, left upper arm, left elbow and left hand). negative: deformity Integumentary: normal color, warm/dry Neurologic: grossly normal, no motor/sensory deficits Psych/Mental Status: normal mood/affect, normal thought content, normal thought process, oriented x 3 <Jessee Goodwin - Last Filed: 04/20/19 18:59> Progress - XRAY 1 XRAY: Left XRAY Study: Hand 2 XRAY: Left XRAY Study: Humerus 3 XRAY: Left XRAY Study: Ribs <Jessee Goodwin - Last Filed: 04/20/19 18:59> - PLAN OF CARE/RESULTS Result Diagrams: 04/20/19 19:58 04/20/19 19:58 - REASSESSMENT Reassessment #1 Time Reassessed: 20:10 (Discussed with hospitalist with plan for admission.) Status: unchanged Reassessment Comment: discussed with Dr. Haywood who saw the patient in the ED. <Erick Valdivia - Last Filed: 04/20/19 20:55> - PLAN OF CARE/RESULTS Progress/Plan/Lab Results: Vital Signs - 8 hr 04/20/19 18:03 Pulse Rate 92 H Respiratory Rate 20 Laboratory Results - last 24 hr 04/20/19 04/20/19 04/20/19 19:58 19:58 19:58 WBC 11.97 H RBC 4.45 Hgb 12.7 Hct 38.6 MCV 86.7 MCH 28.5 MCHC 32.9 L RDW Std Deviation 15.5 H Plt Count 313 MPV 9.1 Neut % (Auto) 70.0 Lymph % (Auto) 18.5 L [place] % (Auto) 7.2 Eos % (Auto) 3.9 Baso % (Auto) 0.4 Neut # (Auto) 8.37 H Lymph # (Auto) 2.22 [place] # (Auto) 0.86 H Eos # (Auto) 0.47 Baso # (Auto) 0.05 PT 13.6 INR 1.03 PTT (Actin FS) 33.4 Sodium 142 Potassium 4.0 Chloride 101 Carbon Dioxide 27 Anion Gap 14 BUN 21 Creatinine 1.0 H Estimated GFR/1.73 m2 54 BUN/Creatinine Ratio 21 Glucose 114 H Calculated Osmolality 287 Calcium 10.9 H Total Bilirubin 0.25 AST 18 ALT 14 Alkaline Phosphatase 75 Total Protein 7.3 Albumin 4.4 Globulin 2.9 Albumin/Globulin Ratio 1.5 Orders Category Date Time Status Admit - [facility] Routine AdmDCTranf 04/20/19 20:04 Active Activity - Up with Assistance ORDERED Care 04/20/19 20:04 Active Intake and Output-Strict ORDERED Care 04/20/19 20:04 Active Shoulder Immobilizer DIRECTED Care 04/20/19 18:34 Active Vital Signs Order Q 8-HR ASSESS Care 04/20/19 20:04 Active Z-Document. for Tele Applied ORDERED Care 04/20/19 20:05 Active Diabetic Diet Diet 04/20/19 20:[address] THORAX W/O CONTRAST [CT] Stat Exams 04/20/19 18:54 Completed HAND COMPLETE LEFT [RAD] Stat Exams 04/20/19 18:26 Completed HUMERUS-LEFT [RAD] Stat Exams 04/20/19 18:32 Completed RIBS UNILAT W/PA CHEST LEFT [RAD] Stat Exams 04/20/19 18:26 Completed BASIC METABOLIC PANEL [CHEM] Routine Lab 04/21/19 06:00 Uncollected CBC WITH DIFF [HEME] Routine Lab 04/21/19 06:00 Uncollected CBC WITH DIFF [HEME] Stat Lab 04/20/19 19:58 Completed COMPREHENSIVE METABOLIC PANEL [CHEM] Stat Lab 04/20/19 19:58 Completed PROTIME WITH INR [COAG] Stat Lab 04/20/19 19:58 Completed PTT [COAG] Stat Lab 04/20/19 19:58 Completed URINALYSIS W/POSS RFLX CULT [URINALYSIS] Stat Lab 04/20/19 18:58 Uncollected 0.9% Sodium Chloride Inj [Ns] 1,000 ml Med 04/20/19 18:58 Active IV 100 mls/hr 0.9% Sodium Chloride Inj [Ns] 1,000 ml Med 04/20/19 20:15 Active IV 125 mls/hr Acetaminophen [Tylenol] Med 04/20/19 20:15 Active 650 mg PO Q6H PRN PRN Enoxaparin [Lovenox] Med 04/20/19 20:15 Active 40 mg SUBQ Q24H Ketorolac [Toradol] Med 04/20/19 17:55 Discontinued 30 mg IM NOW ONE Morphine Med 04/20/19 20:04 Active 2 mg IV Q3H PRN PRN Naproxen [Naprosyn] Med 04/20/19 21:00 Active 250 mg PO BID Ondansetron [Zofran] Med 04/20/19 20:04 Active 4 mg IV Q4H PRN PRN Oxycodone I.r. [Oxy Ir] Med 04/20/19 20:04 Active 5 mg PO Q3H PRN PRN Polyethylene Glycol 3350 [Miralax] Med 04/20/19 21:00 Active 17 gm PO BID Telemetry [OM.EQ] Routine Oth 04/20/19 20:04 Active Transfer/Admit Order [TRANSFER] Routine Transfer 04/20/19 20:36 Ordered Departure - Departure Date of Disposition Decision: 04/20/19 Time of Disposition Decision: 18:34 Certified Medical Emergency: Emergent - Critical Care Note This patient required my direct & personal management of CC.: No <Jessee Goodwin - Last Filed: 04/20/19 18:59> <Erick Valdivia - Last Filed: 04/20/19 20:55> - Departure DIAGNOSIS: Fracture of left humerus Qualifiers: Encounter type: initial encounter Humerus Location: shaft Fracture type: closed Fracture morphology: unspecified fracture morphology Qualified Code(s): S42.302A - Unspecified fracture of shaft of humerus, left arm, initial encounter for closed fracture Disposition: ADMITTED INPATIENT 09 Condition: Serious Additional Instructions: FOLLOW UP WITH ORTHO - CALL TOMORROW ED Follow Up Instructions: You have been treated by a care provider in the Emergency Department. These instructions are being provided to you so you can have an understanding of how to care for yourself upon discharge. Upon discharge from the Emergency Department, you are responsible for making arrangements for follow-up care by a physician of your choice. Take all prescribed medications as directed. Return to the Emergency Department immediately for any new or worsening symptoms. You may call the Physician Referral phone number at [phone] to obtain a list of Physicians who are taking new patients. Prescriptions: Hydrocodone/APAP 5 mg/325 mg [[place]-5] 1 - 2 tab PO Q6H PRN PRN #18 tab PRN Reason: Pain Referrals and Follow-Ups: Jamaal Haywood MD [ACTIVE STAFF PHYSICIAN] - Jorge Page MD [Primary Care Provider] - Discharge Education: Humerus Fracture Treated With Immobilization Attestation - Physician/ ALEXX Attestation Patient care was provided by Advanced Practice Provider:: No The physician spent face to face time with patient:: Yes Advanced Practice Provider documentation review:: Supervising physician onsite and consulted in the evaluation and care of this patient. The physician did have a face to face encounter with the patient. <Jessee Goodwin - Last Filed: 04/20/19 18:59> This chart was documented by the indicated scribe, (Herbert Ocasio Scribe) and accurately reflects the services I performed and decisions made by me, Jessee Goodwin MD, as attested by the provider's signature.
--- NOTE | 2019-04-20 19:01 | Diag Imaging Result Doc PS360 ---
EXAM: HUMERUS-LEFT HISTORY: fall TECHNIQUE: Three views COMPARISON: None. FINDINGS: There is a transverse fracture through the mid shaft of the humerus. Approximately 15 degrees of angulation and mild separation. IMPRESSION: Fracture to the mid humerus Electronically signed by Erik Olmos 04/20/2019 6:57 PM
--- NOTE | 2019-04-20 19:02 | Diag Imaging Result Doc PS360 ---
EXAM: HAND COMPLETE LEFT HISTORY: fall TECHNIQUE: Three views COMPARISON: None. FINDINGS: No fracture. No dislocation. Long-standing arthritis. IMPRESSION: No acute bony injury. Electronically signed by Erik Olmos 04/20/2019 6:59 PM
--- NOTE | 2019-04-20 19:06 | Diag Imaging Result Doc PS360 ---
EXAM: RIBS UNILAT W/PA CHEST LEFT HISTORY: fall TECHNIQUE: Five views COMPARISON: 01/15/2019 FINDINGS: Poor inspiratory effort. No contusion. No pneumothorax. No displaced fracture to the left seventh rib. Nondisplaced rib fracture. There is likely a nondisplaced sixth rib fracture. IMPRESSION: Left lateral rib fractures. Electronically signed by Erik Olmos 04/20/2019 7:03 PM
--- NOTE | 2019-04-20 19:31 | Diag Imaging Result Doc PS360 ---
EXAM: CT THORAX W/O CONTRAST HISTORY: FALL TECHNIQUE: CT chest without contrast COMPARISON: 12/20/2018 FINDINGS: No pneumothorax thorax. No lung contusion. No pleural effusions. There is a nondisplaced fracture to the left fifth rib. Mildly displaced seventh rib fracture on the left. Prominent atherosclerosis. No aortic aneurysm. Calcified mediastinal and hilar nodes with scattered granuloma. There is a fracture to the midshaft of the humerus on the left. IMPRESSION: Fractures to the left fifth and seventh ribs and left humerus This exam was performed using automated exposure control, adjustment of mA or kV according to patient size, and/or use of iterative reconstruction technique. Electronically signed by Erik Olmos 04/20/2019 7:28 PM
[2019-04-20] MEDS ORDERED: ZOFRAN IV PRN (20:04)
[2019-04-20] MEDS ORDERED: MORPHINE IV PRN (20:04)
[2019-04-20] MEDS ORDERED: TYLENOL PO PRN (20:15)
[2019-04-20 20:20] LABS: BASO# 0.05 X1000 (0.0-0.2); BASO% 0.4 % (0.0-0.8); EOS# 0.47 X1000 (0.0-0.7); EOS% 3.9 % (0.0-10.0); HEMATOCRIT 38.6 % (37.0-47.0); HEMOGLOBIN 12.7 g/dL (12.0-16.0); LYMPH# 2.22 X1000 (1.2-3.4); LYMPH% 18.5 % (20.5-51.1); MCH 28.5 PG (27-31); MCHC 32.9 g/dL (33-37); MCV 86.7 FL (81-99); MONO# 0.86 X1000 (0.11-0.59); MONO% 7.2 % (1.7-9.3); MPV 9.1 FL (7.4-10.4); NEUT# 8.37 X1000 (1.4-6.5); PLT 313 X1000 (130-400); RBC 4.45 XMIL (4.2-5.4); RDW 15.5 % (11.5-14.5); WBC 11.97 X1000 (4.8-10.8)
[2019-04-20 20:36] LABS: INR 1.03; PROTIME 13.6 Seconds (11.0-16.0); PTT 33.4 Seconds (22.3-41.8)
[2019-04-20 20:45] LABS: ALB/GLOB RATIO 1.5; ALBUMIN 4.4 g/dL (3.5-5.0); CALCIUM 10.9 mg/dL (8.8-10.2); TOTAL BILIRUBIN 0.25 mg/dL (0.20-1.00); TOTAL PROTEIN 7.3 g/dL (6.3-8.3)
[2019-04-20] MEDS: HUMALOG SUBQ SCH (21:24)
[2019-04-20 21:56] LABS: URINE SOURCE CLEAN CATCH
[2019-04-20 22:33] LABS: BILIRUBIN URINE NEGATIVE (NEGATIVE); BLOOD URINE NEGATIVE (NEGATIVE); COLOR YELLOW; GLUCOSE URINE NEGATIVE (NEGATIVE); KETONE URINE NEGATIVE (NEGATIVE); LEUKOCYTES URINE NEGATIVE (NEGATIVE); NITRITE URINE NEGATIVE (NEGATIVE); PROTEIN URINE 70 mg/dL (NEGATIVE); TURBIDITY URINE CLEAR (CLEAR); UR EPITHELIAL CELLS <10 /HPF (<10); URINE BACTERIA NEGATIVE /HPF; URINE RBC <10 /HPF (<10); URINE WBC <10 /HPF (<10); UROBILINOGEN URINE NORMAL (NORMAL)
[2019-04-20] MEDS: LOVENOX SUBQ SCH (22:49)
[2019-04-20] MEDS: NS 1,000 ML IV SCH (22:50)
[2019-04-20] MEDS: NAPROSYN PO SCH (22:50)
[2019-04-20] MEDS: OXY IR PO PRN (22:50)
--- NOTE | 2019-04-21 05:38 | ORTHOPAEDICS CONSULTATION ---
DATE: 04/20/2019 SERVICE: Orthopedic surgery. CONSULT FROM: [facility]. REASON FOR CONSULTATION: Left midshaft humerus fracture. PAST MEDICAL HISTORY: 1. Diabetes. 2. Chronic kidney disease. 3. Myocardial infarction when she was in her 40s. 4. Coronary artery disease. PAST SURGICAL HISTORY: 1. Cholecystectomy. 2. Lumbar spine surgery. 3. Bilateral bunionectomies with tendon reconstruction in her feet. 4. Hysterectomy. 5. Breast biopsy. MEDICATIONS: 1. Metformin . 2. Lamotrigine. 3. Baclofen. 4. Amlodipine. 5. Glucosamine. 6. Tums. 7. Cymbalta. 8. Vitamin B complex. 9. Synthroid. 10. Nexium. 11. Clonidine. 12. Carvedilol. 13. Vitamin D3. ALLERGIES: She reports allergy to sulfa. SOCIAL HISTORY: The patient lives in [place] with her . She currently drives and is a community ambulator with no assistive device. She is right-hand dominant. Denies any tobacco, alcohol, drug use. FAMILY HISTORY: Noncontributory. REVIEW OF SYSTEMS: A 10 point review of system was completed and is negative other than what is listed history of present illness. CHIEF COMPLAINT: Left humerus fracture. HISTORY OF PRESENT ILLNESS: Ms. Sr is a 79-year-old female who presents to [facility] today after sustaining a fall down 2 steps on her front porch. The patient states she fell into her flower bed. She denies any hitting her head or any loss of consciousness. She denies any pain in her left upper extremity prior to this fall. She was taken to [facility] where x-rays were taken demonstrating a midshaft humerus fracture. Given these findings, Orthopedic Surgery was consulted. The patient is right-hand dominant. She has no other complaints. PHYSICAL EXAMINATION: General: Mr. Sr is a 79-year-old female appears well nourished, well developed, no acute distress. She is awake, alert, oriented x3. She is very polite and cooperative during examination. Vital Signs: Heart rate 92, respiratory rate 20. HEENT: Normocephalic, atraumatic. Respiratory: Nonlabored breathing. Patient does have some pain in her left chest wall when taking deep breath. Cardiovascular: Regular rate and rhythm. Extremities: Examination of left upper extremity shows skin to be intact. Patient has tenderness to palpation in her midshaft humerus fracture site. She is nontender at her elbow, forearm, and wrist. She does have some swelling and ecchymosis at her PIP joint of her 5th finger as well as some tenderness at the PIP joint. Nontender 5th finger DIP or MCP joint. Motor is intact AIN, PIN, ulnar nerve distribution. Sensation intact to light touch median, radial, ulnar, axillary nerves. Radial pulse palpable and equal bilaterally. Patient is able to make a composite fist. She reports some catching in her 4th finger when going from full flexion into extension. She is tender over her A1 adriane. She has visible and palpable triggering of the 4th digit. LABORATORY DATA: White count 12, hemoglobin 13, hematocrit 39, platelets 313,000. INR is 1. Sodium 142, potassium 4, chloride 101, carbon dioxide 27, BUN 21, creatinine is 1, glucose 114. IMAGING: AP and lateral of the left humerus were reviewed demonstrating a transverse midshaft humerus fracture in good alignment on both AP and lateral planes. Chest x-ray was reviewed demonstrating a left 5th and 7th minimally displaced rib fracture. AP, lateral and oblique views of the left hand were reviewed demonstrating diffuse osteoarthritis in the hand. She has some osteophyte formation with possible partially avulsed osteophyte off the dorsal aspect of her middle phalanx of the 5th digit. 5th finger PIP joint is reduced. No other obvious fractures or dislocations. ASSESSMENT: 79-year-old female with left midshaft humerus fracture, left 5th and 7th rib fractures as well as left 5th finger proximal interphalangeal joint sprain and left 4th finger trigger finger. PLAN: Long discussion was had with patient, regarding diagnosis and treatment options. In regards to her midshaft humerus fracture, I think we will try to treat this conservatively initially given patient's age and medical comorbidities. It is a transverse fracture which is slightly more susceptible to nonunion, however it is currently well aligned in good position. We will get her placed into a coaptation splint. I will plan on seeing her in clinic in 1 week with repeat x-rays in the splint. If she can maintain alignment, will plan on treating her in the coapt splint for the 1st 2 to 3 weeks followed by placement in a Archer fracture brace for about another 6 weeks. I will plan on following her closely for the 1st 3 to 4 weeks until callus formation is visible. I did discuss that if she has continued pain and shows no signs of healing then we may need to go in for surgical fixation of the fracture. However, we will try to avoid this. In regards to her left hand, I think she has a joint sprain of the 5th PIP joint. I encouraged her to continue working on range of motion exercises. Finger feel stable varus, valgus stress and she has good range of motion at this time. She also has a trigger finger on her 4th finger. I told her we can discuss this in clinic on an outpatient basis and can likely try a steroid injection if it continues to trigger. The patient is to be admitted to the hospitalist service for monitoring of her respiratory status given her 2 left-sided rib fractures. I told her to use incentive spirometer as instructed and work on taking deep breaths and other pulmonary toilet exercises. I will follow her along while in-house. The patient needs to be nonweightbearing on her left upper extremity. I will see her back in clinic again in 1 week with repeat x-rays of the left humerus. All questions were answered.
[2019-04-21] MEDS: MIRALAX PO SCH ×3 (06:08→20:03)
[2019-04-21 07:11] LABS: BASO# 0.04 X1000 (0.0-0.2); BASO% 0.4 % (0.0-0.8); EOS# 0.44 X1000 (0.0-0.7); EOS% 4.7 % (0.0-10.0); HEMATOCRIT 32.6 % (37.0-47.0); HEMOGLOBIN 10.3 g/dL (12.0-16.0); IMM GRAN# 0.03 X1000 (0.0-0.04); IMM GRAN% 0.3 % (0.0-0.5); LYMPH# 1.97 X1000 (1.2-3.4); LYMPH% 21.2 % (20.5-51.1); MCH 27.6 PG (27-31); MCHC 31.6 g/dL (33-37); MCV 87.4 FL (81-99); MONO# 0.76 X1000 (0.11-0.59); MONO% 8.2 % (1.7-9.3); MPV 9.4 FL (7.4-10.4); NEUT# 6.07 X1000 (1.4-6.5); NEUT% 65.2 % (42.2-75.2); PLT 308 X1000 (130-400); RBC 3.73 XMIL (4.2-5.4); RDW 15.3 % (11.5-14.5); WBC 9.31 X1000 (4.8-10.8)
[2019-04-21 07:19] LABS: AGAP 11; BUN 18 mg/dL (8-22); CALCIUM 10.2 mg/dL (8.8-10.2); CHLORIDE 106 mmol/L (98-107); COSMO 284; CREATININE 0.9 mg/dL (0.5-0.9); ESTIMATED GFR > 60; GLUCOSE 114 mg/dL (70-104); POTASSIUM 4.2 mmol/L (3.5-5.1); SODIUM 141 mmol/L (136-145); TCO2 24 mmol/L (25-35)
[2019-04-21] MEDS: HUMALOG SUBQ SCH ×4 (07:57→21:00)
--- NOTE | 2019-04-21 08:31 | ORTHOPAEDICS PROGRESS NOTE ---
DATE: 04/21/2019 SUBJECTIVE: No acute events overnight. The patient is doing well. She reports pain in her left arm. Her coaptation splint is intact, in good repair. OBJECTIVE: Vital Signs: Afebrile. Vital signs stable. Extremities: Examination of left upper extremity shows coaptation splint to be intact, in good repair. Arm is soft and compressible. Mild swelling in the wrist and hand secondary to her humerus fracture. Motor is intact to AIN, PIN in ulnar nerve distribution. Sensation intact to light touch to median, radial, ulnar, axillary nerves. Radial pulse is palpable. ASSESSMENT: A 79-year-old female with a left midshaft humerus fracture, as well as left fifth and seventh rib fractures. PLAN: 1. Patient is to be nonweightbearing left upper extremity. We will plan on keeping a coaptation splint intact for about 2 weeks, and then transition her to a Archer brace, as long as she maintains her alignment. 2. Pulmonary toilet for rib fractures. 3. Lovenox deep vein thrombosis prophylaxis. 4. Appreciate primary team recommendations. 5. Disposition is as per primary team. I will plan on seeing patient in clinic in 1 week with repeat x-rays of the humerus. cc: Jorge Page MD
[2019-04-21] MEDS: NAPROSYN PO SCH ×2 (08:36→20:03)
--- NOTE | 2019-04-21 09:16 | HISTORY AND PHYSICAL ---
REASON FOR ADMISSION: Left chest and left arm pain following a fall today. HISTORY OF PRESENT ILLNESS: Ms. Brynn Sr is a 79-year-old woman with a past medical history of type 2 diabetes, peripheral neuropathy, hypertension, osteoarthritis, reflux disease, mitral regurgitation, hypertension, carpal tunnel syndrome, who comes in today after sustaining a fall while coming down the stairs in her daughter's house. She said, when she did fall on the left side while on the 2nd to the last step, she did not hit her head. She denied any loss of consciousness, antecedent palpitations, or lightheadedness prior to falling. Otherwise, she said there were no supportive rales when she was coming down and she had to make use of a stick. She does admit to having intermittent postural lightheadedness since her discharge for urosepsis in January of this year. She denies any volume loss from GI or otherwise. No bleeding from any orifice. No cardiorespiratory complaints. No genitourinary complaints. Admits to having chronic constipation. No focal neurological complaints. No loss of consciousness. REVIEW OF SYSTEMS: Twelve system was done. Positive findings per HPI. The patient states that when she fell, she was in a lot of pain in the left chest and left arm. Both pains were described as sharp, worse when she moved any even when she kept still. ALLERGIES TO: MATHIEU inhibitors and sulfa drugs. HOME MEDICATIONS: The home medications have not been officially reconciled, but per old records suggest she is taking baclofen, Norvasc, Coreg, clonidine, Cymbalta, Nexium, levothyroxine, metformin, just to name a few. SURGICAL HISTORY: Cholecystectomy, hysterectomy, low back surgery, breast biopsy, foot surgery. FAMILY HISTORY: Notable for CVA, atrial fibrillation, diabetes, prostate cancer. SOCIAL HISTORY: Does not actively smoke, drink, or use drugs. , lives with . LAB WORK: At the time of dictation was ordered and is not pending. The only test that are available is a CT chest which shows fractures of the left 5th and 7th ribs and left humerus. X- ray of the hand: No acute bony injury. Chest film and humeral x-rays confirm above CT findings. PHYSICAL EXAMINATION: VITAL SIGNS: Blood pressure is 120/70, pulse is 92, respiratory rate is 20. She is afebrile. O2 saturation 96 on room air. GENERAL: She is a pleasant, obese, elderly woman, not in acute distress. AAO x3. Normal mood and affect. HEAD: Head is normocephalic, atraumatic. EYES: SERENITY, EOMI. She is anicteric. Not pale. ENT EXAM: Is grossly normal. NECK: Supple. No JVD or carotid bruit. No thyromegaly. CHEST: Clear when auscultated. Good air entry both lung yousif. CARDIOVASCULAR SYSTEM: First, second heart sounds heard. No gallops, murmurs, rubs regular. ABDOMEN: Protuberant, soft, nontender. No megaly. Bowel sounds are normal. RECTAL: Deferred at this time. EXTREMITIES: The patient has good distal pulse volumes in all extremities. No edema, clubbing or peripheral cyanosis. NEUROLOGICAL: Patient is able to move all extremities, even the left upper extremity digits without any overt limitation. Left upper extremity, however, is currently in an arm sling. So, the left lower extremity exam and neuro exam could not be ascertained. SKIN: Intact no breakdown, lesion, erythema. There is some ecchymosis on the dorsum of the 5th left digit. MUSCULAR: See above. ASSESSMENT: 1. Left chest, rib fractures, left humeral proximal fracture. 2. Type 2 diabetes. 3. Hypertension. 4. Reflux disease. PLAN: For now we will admit the patient overnight, treat symptomatically for pain. We will recommend evaluation with physical therapy to see fall risk otherwise. We will also recommend evaluation for orthostatic hypotension due to the patient's complaints of periodic postural lightheadedness. Pain control and bowel regimen will be instituted for now. We will resume blood pressure medications that are approved . Caution with medications such as baclofen and clonidine in this age group due to the risk of orthostatic hypotension. cc: MD Jamaal Fountain MD Olakunle P. Akinsoto, MD MTDD
[2019-04-21] MEDS: NS 1,000 ML IV SCH (12:03)
[2019-04-21] MEDS: NEXIUM PO SCH (16:40)
[2019-04-21] MEDS: LAMICTAL PO SCH ×2 (16:41→20:03)
[2019-04-21] MEDS: VITAMIN D PO SCH (16:41)
[2019-04-21] MEDS: TUMS PO SCH (16:41)
[2019-04-21] MEDS: LIORESAL PO SCH ×2 (16:42→20:03)
[2019-04-21] MEDS: NORVASC PO SCH (16:42)
[2019-04-21] MEDS: GLUCOPHAGE PO SCH (16:42)
[2019-04-21] MEDS: COREG PO SCH ×2 (16:42→20:04)
[2019-04-21] MEDS: CEFTIN PO SCH (16:42)
[2019-04-21] MEDS: SYNTHROID PO SCH (16:43)
[2019-04-21] MEDS: CATAPRES PO SCH (16:43)
[2019-04-21] MEDS: OXY IR PO PRN (20:02)
[2019-04-21] MEDS: LOVENOX SUBQ SCH (20:03)
[2019-04-21] MEDS: ZOCOR PO SCH (20:03)
[2019-04-21] MEDS: CYMBALTA PO SCH (20:03)
[2019-04-21] MEDS: COZAAR PO SCH (20:03)
[2019-04-21] MEDS: GLUCOSAMINE 500 MG/CHONDROITIN 400 MG PO SCH (20:04)
--- NOTE | 2019-04-21 20:36 | PROGRESS NOTE ---
DATE: 04/21/2019 SUBJECTIVE: The patient's chart was reviewed. In summary, patient was admitted yesterday after sustaining a fall resulting in fractures to the left 5th and 7th ribs and the left humerus. Orthopedic Surgery was consulted. No surgical intervention was deemed warranted. Today, patient states that overall she has done reasonably well. She worked with physical therapy. Her pain is adequately controlled. She complains of constipation, but otherwise denies fevers, chills, nausea, vomiting, shortness of breath, or chest discomfort. OBJECTIVE: Vital signs: T-max 98.4 degrees, heart rate 76 to 112, respirations 16 to 20, blood pressure 166 to 198 over 74 to 124. General: No acute distress. Cardiovascular: Regular rate and rhythm. No significant murmurs, rubs, or gallops. Pulmonary: Clear to auscultation bilaterally. Abdomen: Soft, nontender, nondistended. Positive bowel sounds. Extremities: Moves all extremities well. No significant clubbing, cyanosis, or edema. Dermatologic: Evaluation reveals no evidence of rash. Left upper extremity sling is intact. LABORATORY DATA: White blood cell count 9.31, hemoglobin 10.3, hematocrit 32.6, platelet count 308,000. Sodium 141, potassium 4.2, chloride 106, bicarb 24, BUN 18, creatinine 0.9, glucose 114, calcium 10.2. ASSESSMENT AND PLAN: 1. Left humerus fracture. I appreciate Dr. Haywood's consultation. We will continue pain control. We will continue physical therapy as well. We will defer further management to his discretion. 2. Left 5th and 7th rib fractures. We will continue to encourage incentive spirometry. We will continue symptomatic management. 3. Hypertension. We will continue patient on home regimen. 4. Diabetes. We will continue patient on metformin therapy. 5. Hyperlipidemia. We will continue patient on simvastatin therapy. 6. Disposition. At this point, patient continues to require [facility] care in the hospital setting. We will plan discharge home once appropriate. cc: Jorge Page MD
[2019-04-22] MEDS: SYNTHROID PO SCH ×2 (05:33→08:23)
[2019-04-22] MEDS: OXY IR PO PRN ×2 (05:33→09:28)
[2019-04-22] MEDS: HUMALOG SUBQ SCH ×3 (07:14→21:05)
[2019-04-22] MEDS: NEXIUM PO SCH ×2 (07:20→22:02)
[2019-04-22] MEDS ORDERED: PERICOLACE PO ONE (08:38)
[2019-04-22] MEDS: GLUCOPHAGE PO SCH ×3 (09:20→20:14)
[2019-04-22] MEDS: TUMS PO SCH ×4 (09:20→17:42)
[2019-04-22] MEDS: VITAMIN D PO SCH ×4 (09:20→20:13)
[2019-04-22] MEDS: LIORESAL PO SCH ×2 (09:20→22:02)
[2019-04-22] MEDS: LAMICTAL PO SCH ×2 (09:20→22:04)
[2019-04-22] MEDS: NORVASC PO SCH (09:21)
[2019-04-22] MEDS: GLUCOSAMINE 500 MG/CHONDROITIN 400 MG PO SCH ×2 (09:21→22:02)
[2019-04-22] MEDS: COENZYME Q10 PO SCH (09:21)
[2019-04-22] MEDS: MIRALAX PO SCH ×2 (09:21→22:01)
[2019-04-22] MEDS: CATAPRES PO SCH ×4 (09:21→20:12)
[2019-04-22] MEDS: COREG PO SCH ×2 (09:21→22:03)
[2019-04-22] MEDS: CEFTIN PO SCH (09:21)
[2019-04-22] MEDS: CYMBALTA PO SCH ×2 (09:21→22:02)
[2019-04-22] MEDS: NAPROSYN PO SCH ×2 (09:21→22:04)
[2019-04-22] MEDS: PATIENT'S OWN MED PO SCH ×2 (09:22)
--- NOTE | 2019-04-22 21:27 | PROGRESS NOTE ---
DATE: 04/22/2019 SUBJECTIVE: Upon my arrival this morning, patient was sitting upright in bed. Pain was reasonably controlled. I discussed case with Dr. Haywood. Splint placement was arranged. This evening upon my arrival, patient states that she is not feeling as well. She notes having abdominal discomfort with constipation despite MiraLAX and Sonya-Colace therapy. She is concerned in regards to returning home. Patient states she is unable to care for herself with the left arm fracture. She is interested in rehabilitation. She denies fevers, chills, shortness of breath, or chest discomfort currently. OBJECTIVE: T-max 98.4, heart rate 70 to 112, respirations 16 to 20, blood pressure 162 to 191 over 64 to 79.General: No acute distress. Cardiovascular: Regular rate and rhythm. No significant murmurs, rubs, or gallops. Pulmonary: Clear to auscultation bilaterally. Abdomen: Soft, nontender, nondistended. Positive bowel sounds. Extremities: Moves lower extremities well. No significant clubbing or cyanosis, 1+ lower extremity edema bilaterally. Left upper extremity is in a sling. LABORATORY DATA: None. ASSESSMENT AND PLAN: 1. Left humerus fracture-appreciate Dr. Haywood's consultation. We will continue physical therapy and pain control. A splint has been placed. As described above, patient is concerned as to her safety upon going home. We will consult socially responsible investment adviser and determine if patient is a candidate for rehabilitation. 2. Left 5th and 7th rib fractures-we will encourage incentive spirometry. We will continue pain control. 3. Hypertension-we will continue patient on her home regimen. Blood pressure is remaining slightly elevated, likely secondary to pain. 4. Diabetes-we will continue metformin therapy. 5. Hyperlipidemia-we will continue patient on simvastatin therapy. 6. Disposition. At this point, patient continues to require [facility] care in a hospital setting. We will plan discharge home once appropriate. cc: Jorge Page MD
[2019-04-22] MEDS: LOVENOX SUBQ SCH (22:02)
[2019-04-22] MEDS: ZOCOR PO SCH (22:03)
[2019-04-22] MEDS: COZAAR PO SCH (22:03)
[2019-04-22] MEDS: PERICOLACE PO SCH (22:07)
[2019-04-23] MEDS: HUMALOG SUBQ SCH ×4 (06:41→21:00)
[2019-04-23] MEDS: SYNTHROID PO SCH (06:41)
[2019-04-23] MEDS: VITAMIN D PO SCH ×3 (08:10→17:06)
[2019-04-23] MEDS: GLUCOSAMINE 500 MG/CHONDROITIN 400 MG PO SCH ×2 (08:10→22:32)
[2019-04-23] MEDS: LAMICTAL PO SCH ×2 (08:11→22:31)
[2019-04-23] MEDS: NORVASC PO SCH (08:11)
[2019-04-23] MEDS: CYMBALTA PO SCH ×2 (08:11→22:32)
[2019-04-23] MEDS: PERICOLACE PO SCH ×2 (08:12→22:32)
[2019-04-23] MEDS: CATAPRES PO SCH ×3 (08:12→17:06)
[2019-04-23] MEDS: MIRALAX PO SCH ×2 (08:12→22:33)
[2019-04-23] MEDS: CEFTIN PO SCH (08:12)
[2019-04-23] MEDS: COREG PO SCH ×2 (08:12→22:31)
[2019-04-23] MEDS: NAPROSYN PO SCH ×2 (08:12→22:30)
[2019-04-23] MEDS: TUMS PO SCH ×3 (08:12→17:07)
[2019-04-23] MEDS: COENZYME Q10 PO SCH (08:12)
[2019-04-23] MEDS: LIORESAL PO SCH ×2 (08:13→22:30)
[2019-04-23] MEDS: GLUCOPHAGE PO SCH ×2 (08:13→17:06)
[2019-04-23] MEDS ORDERED: DULCOLAX PR ONE (08:13)
[2019-04-23] MEDS: PATIENT'S OWN MED PO SCH ×2 (08:22→08:23)
[2019-04-23] MEDS: OXY IR PO PRN (16:45)
[2019-04-23] MEDS: COZAAR PO SCH (22:31)
[2019-04-23] MEDS: ZOCOR PO SCH (22:32)
[2019-04-23] MEDS: NEXIUM PO SCH (22:32)
[2019-04-23] MEDS: LOVENOX SUBQ SCH (22:33)
[2019-04-24] MEDS: SYNTHROID PO SCH (06:58)
[2019-04-24] MEDS: HUMALOG SUBQ SCH ×4 (06:59→22:48)
--- NOTE | 2019-04-24 07:05 | PROGRESS NOTE ---
DATE: 04/23/2019 SUBJECTIVE: Upon arrival this morning, the patient states she felt poorly. She noted abdominal discomfort as well as nausea and vomiting overnight. The patient was treated with MiraLAX and Sonya-Colace, followed by a soapsuds enema this morning. This evening, upon my arrival, patient noted improvement in her abdominal discomfort. She has had 2 sufficient bowel movements. She continues to complain of pain as well as feeling of ill-being. She denies fevers, chills, nausea, vomiting, shortness of breath, or chest discomfort. She again stated her concern with returning home and wished to have further assistance at rehabilitation. OBJECTIVE: T-max is 97.8, heart rate 66 to 78, respirations 16 to 20, blood pressure 146-181/65- 81. General: Chronically ill-appearing. No acute distress. Cardiovascular: Regular rate and rhythm. No significant murmurs, rubs, or gallops. Pulmonary: Clear to auscultation bilaterally. Abdomen: Soft, nontender, nondistended. Positive bowel sounds. Extremities: Moves lower extremities well. Left upper extremity is splinted. No significant clubbing, cyanosis, or edema. Dermatologic: Evaluation reveals no evidence of rash. Laboratory Data: None. ASSESSMENT AND PLAN: 1. Left humerus fracture-I appreciate Dr. Haywood's consultation. We will continue physical therapy and pain control as currently prescribed. We await a decision for patient to be transferred to rehabilitation. At this point, the patient states she will be unable to care for herself at home in her current living situation secondary to weakness and insufficient assistance at home. 2. Left fifth and seventh rib fractures-we will continue pain control. Symptoms are stable. 3. Hypertension-patient's blood pressure remains elevated, likely secondary to pain. For now, we will continue her home regimen. 4. Diabetes-we will continue patient on metformin therapy. 5. Hyperlipidemia-we will continue patient on simvastatin therapy. 6. Disposition. At this point, the patient continues to require [facility] care in the hospital setting. We will plan discharge home or to rehab once appropriate. cc: Jorge Page MD
[2019-04-24] MEDS ORDERED: PERICOLACE PO PRN (08:17)
[2019-04-24] MEDS: MIRALAX PO SCH ×2 (09:03→22:48)
[2019-04-24] MEDS: CATAPRES PO SCH ×3 (09:04→16:45)
[2019-04-24] MEDS: COENZYME Q10 PO SCH (09:04)
[2019-04-24] MEDS: NORVASC PO SCH ×2 (09:04→22:50)
[2019-04-24] MEDS: CEFTIN PO SCH (09:04)
[2019-04-24] MEDS: GLUCOPHAGE PO SCH ×2 (09:05→16:40)
[2019-04-24] MEDS: CYMBALTA PO SCH ×2 (09:05→22:43)
[2019-04-24] MEDS: TUMS PO SCH ×3 (09:05→16:40)
[2019-04-24] MEDS: LIORESAL PO SCH ×2 (09:05→22:43)
[2019-04-24] MEDS: VITAMIN D PO SCH ×3 (09:05→16:40)
[2019-04-24] MEDS: NAPROSYN PO SCH ×2 (09:05→22:43)
[2019-04-24] MEDS: GLUCOSAMINE 500 MG/CHONDROITIN 400 MG PO SCH ×2 (09:06→22:43)
[2019-04-24] MEDS: COREG PO SCH ×2 (09:06→22:43)
[2019-04-24] MEDS: LAMICTAL PO SCH ×2 (09:06→22:43)
[2019-04-24] MEDS: PATIENT'S OWN MED PO SCH ×2 (09:17)
[2019-04-24] MEDS: OXY IR PO PRN ×2 (11:59→17:03)
[2019-04-24] MEDS: COZAAR PO SCH (22:43)
[2019-04-24] MEDS: LOVENOX SUBQ SCH (22:44)
[2019-04-24] MEDS: NEXIUM PO SCH (22:44)
[2019-04-24] MEDS: ZOCOR PO SCH (22:44)
[2019-04-25] MEDS: SYNTHROID PO SCH (06:31)
[2019-04-25] MEDS: HUMALOG SUBQ SCH ×4 (06:35→20:40)
--- NOTE | 2019-04-25 07:32 | PROGRESS NOTE ---
DATE: 04/24/2019 SUBJECTIVE: Upon my arrival this morning, patient continued to complain of pain. She states she did not sleep well secondary to the pain. Throughout the day today, patient worked with physical therapy. This evening, patient notes the pain to be persistent. She noted mild intermittent nausea. Over the course of the last 24 hours, she has had a good bowel movement. She denies fevers, chills, shortness of breath, or chest discomfort. OBJECTIVE: Vital Signs: T-max 99.2 degrees, heart rate 71 to 79, respirations 16 to 20, blood pressure 125 to 200 over 53 to 90. General: Well nourished, well developed, no acute distress. Cardiovascular: Regular rate and rhythm. No significant murmurs, rubs, or gallops. Pulmonary: Clear to auscultation bilaterally. Abdomen: Soft, nontender, nondistended. Positive bowel sounds. Extremities: Moves all extremities well. No significant clubbing, cyanosis, or edema. Dermatologic: Evaluation reveals no evidence of rash. Musculoskeletal: Examination reveals a right upper extremity splint placement. LABORATORY DATA: None. ASSESSMENT AND PLAN: 1. Left humerus fracture. I appreciate Dr. Haywood's consultation. We will continue physical therapy and pain management. As described on previous notes, patient states she is unable to go home secondary to increasing needs with the fracture. Paperwork for insurance consideration for rehabilitation has been provided. 2. Left 5th and 7th rib fracture. We will continue patient on pain management. Symptoms are reasonably controlled. 3. Hypertension. Patient's blood pressure remains elevated. The question is raised whether this is baseline or secondary to pain. We will increase patient's amlodipine to 5 mg twice daily. We will continue all other medications. 4. Diabetes. We will continue patient on metformin therapy. 5. Hyperlipidemia. We will continue patient on simvastatin therapy. 6. Disposition. At this point, patient continues to require [facility] care in a hospital setting. We will plan discharge home or to rehab once appropriate. cc: Jorge Page MD
[2019-04-25] MEDS: TUMS PO SCH ×3 (08:32→17:00)
[2019-04-25] MEDS: LIORESAL PO SCH ×2 (08:33→20:32)
[2019-04-25] MEDS: CYMBALTA PO SCH ×2 (08:33→20:32)
[2019-04-25] MEDS: COENZYME Q10 PO SCH (08:33)
[2019-04-25] MEDS: COREG PO SCH ×2 (08:33→20:32)
[2019-04-25] MEDS: CEFTIN PO SCH (08:34)
[2019-04-25] MEDS: NORVASC PO SCH ×2 (08:34→20:32)
[2019-04-25] MEDS: VITAMIN D PO SCH ×3 (08:34→17:00)
[2019-04-25] MEDS: NAPROSYN PO SCH ×2 (08:34→20:32)
[2019-04-25] MEDS: CATAPRES PO SCH ×3 (08:34→17:32)
[2019-04-25] MEDS: GLUCOPHAGE PO SCH ×2 (08:34→17:32)
[2019-04-25] MEDS: LAMICTAL PO SCH ×2 (08:34→20:32)
[2019-04-25] MEDS: GLUCOSAMINE 500 MG/CHONDROITIN 400 MG PO SCH ×2 (08:34→20:32)
[2019-04-25] MEDS: MIRALAX PO SCH ×3 (08:35→20:34)
[2019-04-25] MEDS: PATIENT'S OWN MED PO SCH ×2 (12:43)
[2019-04-25] MEDS: OXY IR PO PRN ×2 (12:51→21:57)
[2019-04-25] MEDS: LOVENOX SUBQ SCH (20:31)
[2019-04-25] MEDS: COZAAR PO SCH (20:32)
[2019-04-25] MEDS: ZOCOR PO SCH (20:32)
[2019-04-25] MEDS: NEXIUM PO SCH (20:32)
[2019-04-26] MEDS: SYNTHROID PO SCH (06:00)
[2019-04-26] MEDS: OXY IR PO PRN (06:01)
[2019-04-26] MEDS: HUMALOG SUBQ SCH ×4 (06:38→20:41)
--- NOTE | 2019-04-26 08:15 | PROGRESS NOTE ---
DATE: 04/25/2019 SUBJECTIVE: Upon my arrival this morning, patient was resting in bed. She noted not to have slept well overnight. The patient complained of continued pain. Throughout the day, patient worked with physical therapy. Her p.o. intake remains reasonable. This evening, upon my arrival she was sitting in a chair. She continues to have considerable concerns with going home. She states she is unable to rise from a sitting position without significant assistance. She is interested in transfer to rehabilitation if possible. She denies fevers, chills, nausea, vomiting, shortness of breath or chest discomfort. OBJECTIVE: Vital Signs: T-max 98.1 degrees, heart rate 58 to 81, respirations 17 to 22, blood pressure 127 to 181 over 54 to 68. General: Well nourished, well developed, chronically ill- appearing, no acute distress. Cardiovascular: Regular rate and rhythm. No significant murmurs, rubs, or gallops. Pulmonary: Clear to auscultation anteriorly. Abdomen: Soft, nontender, nondistended. Positive bowel sounds. Extremities: Moves all extremities well with exception of her left upper extremity. No significant clubbing, cyanosis, or edema. Left upper extremity demonstrates a splint placed to her left upper arm. Dermatologic: Evaluation reveals no evidence of rash. LABORATORY DATA: None. ASSESSMENT AND PLAN: 1. Left humerus fracture--I appreciate Dr. Haywood's consultation. We will continue physical therapy per his recommendations. Pain management will also be continued. Because patient has experienced severe limitations of her activity secondary to the fracture, she is interested in rehabilitation. We will continue to work toward transfer. 2. Left fifth and seventh rib fractures--we will continue pain management. Encourage deep breathing. 3. Hypertension--blood pressure today is elevated, but improving. Yesterday, amlodipine was increased to 5 mg twice daily. We will follow this for now. 4. Diabetes--the patient will be continued on metformin therapy. 5. Hyperlipidemia--we will continue patient on simvastatin therapy. 6. Disposition--at this point, patient continues to require [facility] care in a hospital setting. We will plan discharge home, order rehabilitation once appropriate. cc: Jorge Page MD
[2019-04-26] MEDS: CEFTIN PO SCH (09:06)
[2019-04-26] MEDS: LIORESAL PO SCH ×2 (09:06→20:21)
[2019-04-26] MEDS: LAMICTAL PO SCH ×2 (09:06→20:20)
[2019-04-26] MEDS: COENZYME Q10 PO SCH (09:06)
[2019-04-26] MEDS: NORVASC PO SCH ×2 (09:06→20:20)
[2019-04-26] MEDS: VITAMIN D PO SCH ×3 (09:06→17:20)
[2019-04-26] MEDS: NAPROSYN PO SCH ×2 (09:07→20:20)
[2019-04-26] MEDS: TUMS PO SCH ×3 (09:07→17:20)
[2019-04-26] MEDS: CATAPRES PO SCH ×3 (09:07→17:20)
[2019-04-26] MEDS: COREG PO SCH ×2 (09:07→20:21)
[2019-04-26] MEDS: CYMBALTA PO SCH ×2 (09:08→20:21)
[2019-04-26] MEDS: GLUCOSAMINE 500 MG/CHONDROITIN 400 MG PO SCH ×2 (09:08→20:20)
[2019-04-26] MEDS: GLUCOPHAGE PO SCH ×2 (09:08→17:20)
[2019-04-26] MEDS: MIRALAX PO SCH ×2 (09:10→20:10)
[2019-04-26] MEDS: PATIENT'S OWN MED PO SCH ×2 (09:10)
--- NOTE | 2019-04-26 17:39 | PROGRESS NOTE ---
DATE: 04/26/2019 SUBJECTIVE: Upon my arrival, patient was sitting upright in a chair. She continues to have considerable pain to the left upper extremity. She has developed hand edema as well as some associated ecchymosis. Her ambulatory status remains very marginal. She is a high fall risk, especially since this fracture. P.o. intake is adequate. She denies fevers, chills, nausea, vomiting, shortness of breath, or chest discomfort. OBJECTIVE: T-max 98.4 degrees, heart rate 58 to 81, respirations 17 to 22, blood pressure 134 to 165 over 49 to 72.General: Well nourished, well developed, no acute distress. Cardiovascular: Regular rate and rhythm. No significant murmurs, rubs, or gallops. Pulmonary: Clear to auscultation bilaterally. Abdomen: Soft, nontender, nondistended. Positive bowel sounds. Extremities: Moves all extremities well with exception of her left upper extremity. No clubbing, cyanosis, or edema noted in all extremities with exception of the left upper extremity. The left upper extremity is splinted. She does have increasing edema and bruising discoloration to the hand. Dermatologic: Evaluation reveals no evidence of rash. Ecchymosis to the hand and swelling is noted. LABORATORY DATA: None. ASSESSMENT AND PLAN: 1. Left humerus fracture-I appreciate Dr. Haywood's consultation. We will continue physical therapy per his recommendations. Pain is present but reasonably controlled. Because of patient's very unsteady gait and high risk for falls, it is felt rehabilitation is most appropriate. We await insurance confirmation. For now, we will continue physical therapy. 2. Left 5th and 7th rib fractures-we will continue patient on pain management. Symptoms are reasonably controlled. We will encourage incentive spirometry. 3. Hypertension-patient's blood pressure is elevated, but improving since increasing amlodipine to 5 mg twice daily. We will continue to follow. 4. Diabetes-we will continue patient on metformin therapy. 5. Hyperlipidemia-we will continue patient on simvastatin therapy. 6. Disposition-at this point, patient continues to require [facility] care in a hospital setting. I anticipate discharge to rehab in the near future. cc: Jorge Page MD
[2019-04-26] MEDS ORDERED: ZOFRAN PO PRN (20:09)
[2019-04-26] MEDS: ZOCOR PO SCH (20:20)
[2019-04-26] MEDS: NEXIUM PO SCH (20:20)
[2019-04-26] MEDS: COZAAR PO SCH (20:21)
[2019-04-26] MEDS: LOVENOX SUBQ SCH (20:21)
[2019-04-27] MEDS: OXY IR PO PRN ×4 (04:06→21:20)
[2019-04-27] MEDS: SYNTHROID PO SCH (06:36)
[2019-04-27] MEDS: HUMALOG SUBQ SCH ×5 (06:44→22:36)
[2019-04-27] MEDS: GLUCOPHAGE PO SCH ×2 (09:14→17:03)
[2019-04-27] MEDS: VITAMIN D PO SCH ×3 (09:15→17:03)
[2019-04-27] MEDS: CEFTIN PO SCH (09:15)
[2019-04-27] MEDS: LAMICTAL PO SCH ×2 (09:15→21:20)
[2019-04-27] MEDS: NAPROSYN PO SCH ×2 (09:15→21:20)
[2019-04-27] MEDS: CYMBALTA PO SCH ×2 (09:15→21:20)
[2019-04-27] MEDS: GLUCOSAMINE 500 MG/CHONDROITIN 400 MG PO SCH ×2 (09:15→21:20)
[2019-04-27] MEDS: TUMS PO SCH ×3 (09:15→17:03)
[2019-04-27] MEDS: LIORESAL PO SCH ×2 (09:16→21:20)
[2019-04-27] MEDS: COREG PO SCH ×2 (09:16→21:22)
[2019-04-27] MEDS: COENZYME Q10 PO SCH (09:16)
[2019-04-27] MEDS: NORVASC PO SCH ×2 (09:16→21:22)
[2019-04-27] MEDS: CATAPRES PO SCH ×3 (09:17→17:03)
[2019-04-27] MEDS: PATIENT'S OWN MED PO SCH ×2 (09:17)
[2019-04-27] MEDS: MIRALAX PO SCH ×2 (09:18→22:36)
--- NOTE | 2019-04-27 10:26 | PROGRESS NOTE ---
DATE: 04/27/2019 SUBJECTIVE: Upon arrival, patient was sitting upright in her bed. She noted to have a difficult night. She complains of significant pain to the left upper extremity. This was treated with as needed medications. Otherwise, she denies fevers, chills, nausea, vomiting, shortness of breath, or chest discomfort. She continues to work with physical therapy to improve her strength and ability to ambulate. OBJECTIVE: T- maximum 98.3 degrees, heart rate 64 to 83, respirations 12 to 20 blood pressure 113 to 178/ 55 to 86.General: Well-nourished, well-developed, in no acute distress. Cardiovascular: Regular rate and rhythm. No significant murmurs, rubs, or gallops. Pulmonary: Clear to auscultation bilaterally. Abdomen: Soft, nontender, nondistended. Positive bowel sounds. Extremities: Moves all extremities with the exception of her left upper extremity well. No significant clubbing or cyanosis to the lower extremities. Trace lower extremity edema bilaterally. Left upper extremity is has a splint intact. It does appear the Delvin bandage is loosening. She has left hand swelling. Dermatologic: Evaluation reveals no evidence of rash. LABORATORY DATA: None. ASSESSMENT AND PLAN: 1. Left humerus fracture-I appreciate Dr. Haywood's consultation. Unfortunately, this has severely limited her ambulatory status. At this point, she states she is unable to go home as she does not have sufficient assistance. Rehabilitation has been requested and is under review by her insurance. For now, we will continue her current physical therapy regimen. We will ask orthopedist to evaluate the left upper extremity splint as the Delvin bandage is loosening. We will continue pain medications as necessary. 2. Left 5th and 7th rib fractures-we will continue to encourage incentive spirometry. We will continue as needed pain medications. 3. Hypertension-the patient's blood pressure has improved since adjusting her Norvasc. We will continue her current regimen for now. 4. Diabetes-we will continue patient on metformin therapy. 5. Hyperlipidemia-we will continue patient on simvastatin therapy. 6. Disposition. At this point, patient continues to require intermediate care in a hospital setting. As described above, we await evaluation for rehabilitation by her insurance company. cc: Jorge Page MD
[2019-04-27] MEDS: NEXIUM PO SCH (21:20)
[2019-04-27] MEDS: ZOCOR PO SCH (21:22)
[2019-04-27] MEDS: COZAAR PO SCH (21:22)
[2019-04-27] MEDS: LOVENOX SUBQ SCH (21:30)
[2019-04-28] MEDS: OXY IR PO PRN ×2 (03:39→13:57)
[2019-04-28] MEDS: SYNTHROID PO SCH (06:10)
[2019-04-28] MEDS: HUMALOG SUBQ SCH ×4 (06:43→21:00)
[2019-04-28] MEDS: GLUCOSAMINE 500 MG/CHONDROITIN 400 MG PO SCH ×2 (11:14→20:17)
[2019-04-28] MEDS: COREG PO SCH ×2 (11:14→20:17)
[2019-04-28] MEDS: NAPROSYN PO SCH ×2 (11:14→20:17)
[2019-04-28] MEDS: GLUCOPHAGE PO SCH ×2 (11:14→17:43)
[2019-04-28] MEDS: CYMBALTA PO SCH ×2 (11:15→20:17)
[2019-04-28] MEDS: LIORESAL PO SCH ×2 (11:15→20:17)
[2019-04-28] MEDS: CATAPRES PO SCH ×3 (11:15→20:18)
[2019-04-28] MEDS: COENZYME Q10 PO SCH (11:15)
[2019-04-28] MEDS: VITAMIN D PO SCH ×3 (11:15→20:18)
[2019-04-28] MEDS: TUMS PO SCH ×3 (11:15→20:18)
[2019-04-28] MEDS: NORVASC PO SCH ×2 (11:15→20:18)
[2019-04-28] MEDS: LAMICTAL PO SCH ×2 (11:15→20:17)
[2019-04-28] MEDS: MIRALAX PO SCH ×2 (11:16→20:19)
[2019-04-28] MEDS: CEFTIN PO SCH (11:16)
[2019-04-28] MEDS: PATIENT'S OWN MED PO SCH ×2 (11:16)
[2019-04-28] MEDS: NEXIUM PO SCH (20:17)
[2019-04-28] MEDS: ZOCOR PO SCH (20:17)
[2019-04-28] MEDS: LOVENOX SUBQ SCH (20:18)
[2019-04-28] MEDS: COZAAR PO SCH (20:18)
[2019-04-28] MEDS: VENTOLIN HFA INH PRN (20:29)
--- NOTE | 2019-04-28 22:57 | PROGRESS NOTE ---
DATE: 04/28/2019 SUBJECTIVE: Upon my arrival this morning, the patient was sitting upright in bed eating. Throughout the day, the patient continued to work with physical therapy. She continues to have considerable left upper extremity pain. She also has developed some low back pain and knee pain. This evening, upon my arrival, the patient is again sitting upright in a chair. Insurance has denied further treatment at rehabilitation. Patient is unsure as to where she will go from here. She denies fevers, chills, nausea, vomiting, shortness of breath, or chest discomfort. OBJECTIVE: T-max 99 degrees, heart rate 63 to 72, respirations 16 to 20, blood pressure 119 to 147 over 42 to 53.General: Chronically ill appearing, no acute distress. Cardiovascular: Regular rate and rhythm. No significant murmurs, rubs, or gallops. Pulmonary: Clear to auscultation bilaterally. Abdomen: Soft, nontender, nondistended. Positive bowel sounds. Extremities: Moves all extremities well. No significant clubbing, cyanosis, or edema. Dermatologic: Evaluation reveals no evidence of rash. LABORATORY DATA: None. ASSESSMENT AND PLAN: 1. Left humerus fracture - We discussed this in great detail. The patient does have significant limitation of her ambulatory status secondary to her fracture. With insurance denying coverage for rehabilitation, I have explained that we will need to plan discharge from the hospital tomorrow to either home with assistance or assisted living. The patient has not made a decision as to as to where she will go next. 2. I have encouraged her to talk with her . We will plan for [employer] to further assist with anticipated discharge tomorrow. 3. Left 5th and 7th rib fractures - We will continue to encourage incentive spirometry. Pain is controlled. 4. Hypertension - Blood pressure is reasonably controlled on her current regimen. 5. Diabetes - We will continue patient on metformin therapy. 6. Hyperlipidemia - We will continue patient on simvastatin therapy. 7. Disposition. At this point, the patient continues to require residential care in the hospital setting. We will plan discharge to home or to assisted living/[facility] facility tomorrow. cc: Jorge Page MD MTDD
[2019-04-29] MEDS: OXY IR PO PRN (06:23)
[2019-04-29] MEDS: SYNTHROID PO SCH (06:24)
[2019-04-29 06:57] LABS: BASO# 0.03 X1000 (0.0-0.2); BASO% 0.3 % (0.0-0.8); EOS% 6.6 % (0.0-10.0); HEMATOCRIT 29.9 % (37.0-47.0); HEMOGLOBIN 9.2 g/dL (12.0-16.0); IMM GRAN# 0.05 X1000 (0.0-0.04); IMM GRAN% 0.5 % (0.0-0.5); LYMPH# 1.62 X1000 (1.2-3.4); LYMPH% 15.4 % (20.5-51.1); MCH 27.2 PG (27-31); MCHC 30.8 g/dL (33-37); MCV 88.5 FL (81-99); MONO# 1.05 X1000 (0.11-0.59); MPV 9.6 FL (7.4-10.4); NEUT% 67.2 % (42.2-75.2); PLT 339 X1000 (130-400); RBC 3.38 XMIL (4.2-5.4); RDW 15.6 % (11.5-14.5); WBC 10.55 X1000 (4.8-10.8)
[2019-04-29] MEDS: HUMALOG SUBQ SCH ×4 (07:00→21:38)
[2019-04-29 07:17] LABS: AGAP 9; ALB/GLOB RATIO 1.3; ALBUMIN 3.3 g/dL (3.5-5.0); ALKALINE PHOSPHATASE 64 U/L (32-104); BUN 35 mg/dL (8-22); CALCIUM 11.5 mg/dL (8.8-10.2); CHLORIDE 101 mmol/L (98-107); COSMO 279; CREATININE 0.9 mg/dL (0.5-0.9); ESTIMATED GFR > 60; GLUCOSE 111 mg/dL (70-104); GOT 21 U/L (10-30); GPT 16 U/L (10-36); POTASSIUM 4.9 mmol/L (3.5-5.1); SODIUM 135 mmol/L (136-145); TCO2 25 mmol/L (25-35); TOTAL BILIRUBIN 0.19 mg/dL (0.20-1.00); TOTAL PROTEIN 5.8 g/dL (6.3-8.3)
[2019-04-29] MEDS: TUMS PO SCH ×3 (10:49→18:52)
[2019-04-29] MEDS: COREG PO SCH ×2 (10:49→21:36)
[2019-04-29] MEDS: CYMBALTA PO SCH ×2 (10:49→21:35)
[2019-04-29] MEDS: LIORESAL PO SCH ×2 (10:50→21:33)
[2019-04-29] MEDS: COENZYME Q10 PO SCH (10:50)
[2019-04-29] MEDS: NAPROSYN PO SCH ×2 (10:50→21:34)
[2019-04-29] MEDS: LAMICTAL PO SCH ×2 (10:50→21:35)
[2019-04-29] MEDS: CEFTIN PO SCH (10:50)
[2019-04-29] MEDS: VITAMIN D PO SCH ×3 (10:50→18:52)
[2019-04-29] MEDS: GLUCOPHAGE PO SCH ×2 (10:50→18:52)
[2019-04-29] MEDS: CATAPRES PO SCH ×3 (10:50→18:52)
[2019-04-29] MEDS: NORVASC PO SCH ×2 (10:51→21:36)
[2019-04-29] MEDS: PATIENT'S OWN MED PO SCH ×2 (10:51→10:52)
[2019-04-29] MEDS: MIRALAX PO SCH ×2 (10:53→21:38)
[2019-04-29] MEDS: GLUCOSAMINE 500 MG/CHONDROITIN 400 MG PO SCH ×2 (10:53→21:34)
[2019-04-29] MEDS: LOVENOX SUBQ SCH (21:33)
[2019-04-29] MEDS: COZAAR PO SCH (21:33)
[2019-04-29] MEDS: ZOCOR PO SCH (21:34)
[2019-04-29] MEDS: NEXIUM PO SCH (21:34)
--- NOTE | 2019-04-29 22:35 | ORTHOPAEDICS PROGRESS NOTE ---
DATE: 04/29/2019 Subjective: No acute events overnight. Patient was denied rehab placement and has stayed in the hospital as she does need help mobilizing. She has been tolerating a diet. She is using her incentive spirometer as instructed. She ambulated around the hallways with physical therapy today. She reports continued pain in the left arm and states her coaptation splint continues to slide down the arm. No other complaints. OBJECTIVE: Hematocrit 30.Extremities: Examination of left upper extremity shows coaptation splint to be in intact, however, it has slid down the arm slightly. She is nontender at the shoulder. She has significant swelling and pitting edema in her hand as well as ecchymosis secondary to gravity due to her humerus fracture. Forearm and hand are soft and compressible. Motor intact, AIN, PIN, ulnar nerve distribution. Sensation intact to light touch to median, radial, ulnar, axillary nerves. Radial pulse palpable and equal bilaterally. ASSESSMENT: A 79-year-old female with left midshaft proximal humerus fracture. PLAN: 1. The patient is likely going to be discharged home today per review of primary team notes. If she is discharged prior to 5 o'clock, I told her to swing by the office to mixing picker tender a humeral mobilizing brace, Archer type brace. I think this will fit better and they are unable to get this at the hospital. If she is still in-house tomorrow, I will bring it by and get her fitted with this prior to her discharge. We will still plan on non operative treatment for the fracture. I will plan on seeing her in clinic in 1 week with repeat x-rays of the left humerus. 2. Appreciate hospitalist recommendations. cc: Jorge Page MD
--- NOTE | 2019-04-30 01:51 | PROGRESS NOTE ---
DATE: 04/29/2019 SUBJECTIVE: Upon my arrival this morning, the patient was sitting upright in bed. Discussion of discharge was pursued. Unfortunately, the patient continued to insist she is unable to perform acceptably at home. At that point we transitioned to options including assisted living. During the day the patient discussed this with her family. Plans have been tentatively arranged for tomorrow. The patient continues to work with physical therapy while hospitalized. She denies fevers, chills, nausea, vomiting, shortness of breath or chest discomfort. OBJECTIVE: T-max 98.5 degrees, heart rate 67 to 73, respirations 16 to 20. Blood pressure 136 to 170 over 50 to 63.General: Well nourished, well developed, no acute distress. Cardiovascular: Regular rate and rhythm. No significant murmurs, rubs or gallops. Pulmonary: Clear to auscultation bilaterally. Abdomen soft, nontender, nondistended. Positive bowel sounds. Extremities: Moves all extremities well, with the exception of the left upper extremity. No significant clubbing, cyanosis or edema. Dermatologic evaluation reveals no evidence of rash. LABORATORY DATA: White blood cell count 10.55, hemoglobin 9.2, hematocrit 29.9, platelet count 339,000. Sodium 135, potassium 4.9, chloride 101, bicarbonate 25, BUN 35, creatinine 0.9, glucose 111, calcium 11.5, total bilirubin 0.91, total protein 5.8, albumin 3.3, alkaline phosphatase 64, AST 21, ALT 16. ASSESSMENT AND PLAN: 1. Left humerus fracture: We discussed this in great detail. As discussed on previous notes, the patient insisted she is unable to care for herself at home, nor does she have family members to assist with this care. For this reason, we will transition the patient to an assisted living facility with home health. Arrangements are being made for discharge tomorrow. We will plan followup with Dr. Haywood as necessary. 2. Left 5th and 7th rib fractures: We will continue to encourage incentive spirometry. Symptoms are reasonably controlled. 3. Hypertension: Blood pressure is reasonably controlled on her current regimen. 4. Diabetes: We will continue the patient on metformin therapy. 5. Hyperlipidemia: We will continue the patient on simvastatin therapy. 6. Hypercalcemia: The patient's levels have been borderline while hospitalized. This likely is a consequence of her underlying renal dysfunction. We will continue to encourage hydration. 7. Disposition: At this point the patient continues to require shelter care in a hospital setting. We will plan discharge home once appropriate. cc: Jorge Page MD
[2019-04-30] MEDS: OXY IR PO PRN (03:58)
[2019-04-30] MEDS: SYNTHROID PO SCH (06:28)
[2019-04-30] MEDS: HUMALOG SUBQ SCH ×4 (06:33→21:48)
[2019-04-30] MEDS: VENTOLIN HFA INH PRN (10:10)
[2019-04-30] MEDS: CATAPRES PO SCH ×3 (10:49→21:44)
[2019-04-30] MEDS: COREG PO SCH ×2 (10:49→21:46)
[2019-04-30] MEDS: NORVASC PO SCH ×2 (10:49→21:45)
[2019-04-30] MEDS: TUMS PO SCH ×3 (10:49→21:44)
[2019-04-30] MEDS: CYMBALTA PO SCH ×2 (10:49→21:46)
[2019-04-30] MEDS: COENZYME Q10 PO SCH (10:50)
[2019-04-30] MEDS: VITAMIN D PO SCH ×3 (10:50→21:46)
[2019-04-30] MEDS: LAMICTAL PO SCH ×2 (10:50→21:44)
[2019-04-30] MEDS: CEFTIN PO SCH (10:50)
[2019-04-30] MEDS: GLUCOSAMINE 500 MG/CHONDROITIN 400 MG PO SCH ×2 (10:50→21:46)
[2019-04-30] MEDS: NAPROSYN PO SCH ×2 (10:50→21:45)
[2019-04-30] MEDS: LIORESAL PO SCH ×2 (10:50→21:45)
[2019-04-30] MEDS: GLUCOPHAGE PO SCH ×2 (10:50→18:31)
[2019-04-30] MEDS: MIRALAX PO SCH ×2 (10:51→21:47)
[2019-04-30] MEDS: PATIENT'S OWN MED PO SCH ×2 (10:51)
[2019-04-30] MEDS: LOVENOX SUBQ SCH (21:43)
[2019-04-30] MEDS: NEXIUM PO SCH (21:44)
[2019-04-30] MEDS: COZAAR PO SCH (21:45)
[2019-04-30] MEDS: ZOCOR PO SCH (21:45)
--- NOTE | 2019-04-30 22:21 | ORTHOPAEDICS PROGRESS NOTE ---
DATE: 04/30/2019 SUBJECTIVE: No acute events today. She ambulated with physical therapy. She is planning on being discharged tomorrow to [facility]. OBJECTIVE: Vital signs: Afebrile. Vital signs stable. Extremities: Examination of left upper extremity shows co-op splint in place. Splint was removed. Skin is intact with ecchymosis. Tender to palpation around her humeral fracture site. Neurovascularly intact. ASSESSMENT: A 79-year-old female with left humeral shaft fracture. PLAN: 1. Nonweightbearing of the left upper extremity. Physical therapy to continue mobilizing with a cane. 2. The patient was placed into a humeral immobilizer splint which seems to fit her little bit better than the coapt. I told her to be sure and look around her skin edges around the splint to ensure no abrasions or irritation. I want her to make sure to loosen the sling part of the splint in order to allow elbow range of motion several times a day. 3. Appreciate hospitalist recommendations. 4. Disposition per primary team. Patient is going to [facility] tomorrow. I will see her back in clinic early next week with repeat x-rays. As long as we can maintain reduction of the fracture and the splint, we will plan on operative treatment. cc: Jorge Page MD
[2019-05-01] MEDS: SYNTHROID PO SCH (06:52)
[2019-05-01] MEDS: HUMALOG SUBQ SCH ×2 (06:54→11:02)
[2019-05-01] MEDS: GLUCOPHAGE PO SCH (09:17)
[2019-05-01] MEDS: TUMS PO SCH ×2 (09:17→13:44)
[2019-05-01] MEDS: GLUCOSAMINE 500 MG/CHONDROITIN 400 MG PO SCH (09:17)
[2019-05-01] MEDS: CATAPRES PO SCH ×2 (09:17→13:44)
[2019-05-01] MEDS: LIORESAL PO SCH (09:19)
[2019-05-01] MEDS: VITAMIN D PO SCH ×2 (09:19→13:44)
[2019-05-01] MEDS: LAMICTAL PO SCH (09:20)
[2019-05-01] MEDS: CEFTIN PO SCH (09:20)
[2019-05-01] MEDS: CYMBALTA PO SCH (09:20)
[2019-05-01] MEDS: COREG PO SCH (09:20)
[2019-05-01] MEDS: NORVASC PO SCH (09:20)
[2019-05-01] MEDS: NAPROSYN PO SCH (09:21)
[2019-05-01] MEDS: MIRALAX PO SCH (09:21)
[2019-05-01] MEDS: COENZYME Q10 PO SCH (09:21)
[2019-05-01] MEDS: PATIENT'S OWN MED PO SCH ×2 (09:30)
[2019-05-01] MEDS: VENTOLIN HFA INH PRN (09:44)
[2019-05-01 11:36] VITALS: BP 151/76
--- NOTE | 2019-05-01 11:41 | DISCHARGE SUMMARY ---
ADMISSION DATE: 04/20/2019 DISCHARGE DATE: 04/30/2019 ADMISSION DIAGNOSES: 1. Left chest pain. 2. Left upper extremity pain. DISCHARGE DIAGNOSES: 1. Left humerus fracture. 2. Left 5th and 7th rib fractures. 3. Profound weakness. 4. Hypertension, present on arrival. 5. Diabetes, present on arrival. 6. Hyperlipidemia, present on arrival. 7. Hypercalcemia, intermittent. CONSULTATIONS: Dr. Haywood with orthopedic surgery was consulted for further evaluation and management of left humerus fracture. PROCEDURES: 1. An x-ray of the hand was performed on 04/20/2019, which revealed no acute bony injury. 2. X-ray of the ribs was performed on 04/20/2019, which revealed will left lateral rib fractures 3. Humerus x-ray was performed on 04/20/2019, which revealed fractures of the mid humerus. 4. CT scan of the chest was performed on 04/20/2019, which revealed fractures of the left 5th and 7th ribs and a left humerus fracture. HISTORY AND PHYSICAL EXAMINATION: See admit note. PHYSICAL EXAMINATION PRIOR TO DISCHARGE: Vital Signs: Temperature 98.6 degrees, heart rate 71, respirations 16, blood pressure is 133/45. General: Well nourished, well developed, chronically ill-appearing, no acute distress. Cardiovascular: Regular rate and rhythm. No significant murmurs, rubs, or gallops. Pulmonary: Clear to auscultation bilaterally. Abdomen: Soft, nontender, nondistended. Positive bowel sounds. Extremities: Moves all extremities well with exception of her left upper extremity. No significant clubbing or cyanosis. Trace to 1+ lower extremity edema bilaterally. Dermatologic: Evaluation reveals multiple ecchymoses. LABORATORY DATA: Prior to discharge, none. HOSPITAL COURSE: Patient was admitted as per history and physical examination. Hospital course per condition is as follows: 1. Left humerus fracture: Upon admission, patient was diagnosed with a left humerus fracture. Dr. Haywood was consulted. The patient was placed in a splint while hospitalized and has been transitioned to an alternative brace. No surgical intervention has been warranted today. The patient will continue close followup with Dr. Haywood as an outpatient. Physical therapy and home health has been consulted. 2. Left 5th and 7th rib fractures: The patient has had intermittent, at times significant pain while hospitalized. She was treated with as needed pain medication intervention. We will continue to encourage incentive spirometry and ambulation. 3. Profound weakness: We discussed this in great detail. Unfortunately, because of her profound weakness and inability to rise from a chair and a bed without assistance, it was felt further intervention was warranted. A consult for rehabilitation was denied by insurance. We will transition patient to assisted living with home health and physical therapy. I anticipate a full, but slow recovery. 4. Hypertension: The patient's blood pressure initially was elevated while hospitalized. With titration of medications, she has achieved improvement. Patient will be discharged home on a cautious, but aggressive regimen. We will need to monitor blood pressure closely as an outpatient. 5. Diabetes: Patient has longstanding disease. Blood sugars remained reasonably controlled with metformin while hospitalized. 6. Hyperlipidemia: The patient was continued on simvastatin therapy while hospitalized. 7. Hypercalcemia: This has been intermittently present historically. We will continue to encourage hydration as an outpatient. DISCHARGE CONDITION: Stable. DISPOSITION: Discharge to assisted living with home health and physical therapy. MEDICATIONS: 1. Carvedilol 25 mg twice daily. 2. MiraLAX 17 grams in 8 ounces of juice twice daily, hold for loose stools. 3. Naproxen 250 mg twice daily. 4. Oxycodone 5 mg every 3 hours as needed. 5. Calcium carbonate chewable tablets 1000 mg 3 times daily. 6. Tylenol 650 mg every 6 hours as needed. 7. Vitamin D3 at 1000 units 3 times daily. 8. Amlodipine 5 mg twice daily. 9. Metformin 500 mg twice daily. 10. Lamotrigine 100 mg twice daily. 11. Baclofen 10 mg twice daily. 12. Osteo Bi-Flex 1 tablet twice daily. 13. Cymbalta 60 mg twice daily. 14. Cinnamon bark 500 mg daily. 15. Vitamin B complex 1 tablet daily. 16. Synthroid 100 mcg daily. 17. Nexium 40 mg daily. 18. Clonidine 0.1 mg 3 times daily. 19. Coenzyme Q10 at 100 mg daily. 20. ProAir HFA 1 to 2 puffs every 4 to 6 hours as needed. 21. Simvastatin 40 mg at bedtime. 22. Losartan 100 mg at bedtime. 23. Cefuroxime 500 mg daily. FOLLOWUP: The patient is to follow with me in approximately 1 to 2 weeks. Patient is to follow up with Dr. Haywood as arranged. cc: Jorge Page MD
--- NOTE | 2019-05-03 | DISCHARGE SUMMARY ---
ADMISSION DATE: 04/20/2019 DISCHARGE DATE: 05/01/2019 SUBJECTIVE: A discharge summary was dictated yesterday. Unfortunately, we were unable to get her discharged secondary to arrangements being made. Overnight, the patient states she did reasonably well. She continued to have some pain of her left upper extremity, although this was reasonably controlled. This morning, she is prepared for discharge to assisted living with home health. She denies fevers, chills, nausea, vomiting or shortness of breath. OBJECTIVE: T-max 98.6 degrees, heart rate 61-78, respirations 16-18. Blood pressure 141 to 160 over 52 to 76. General: No acute distress. Cardiovascular: Regular rate and rhythm. No significant murmurs, rubs or gallops. Pulmonary: Clear to auscultation bilaterally. Abdomen soft, nontender, nondistended. Positive bowel sounds. Extremities: Moves all extremities well. No significant clubbing, cyanosis or edema. Dermatologic evaluation reveals no evidence of rash. Musculoskeletal examination reveals a left upper extremity brace. LABORATORY DATA: None. ASSESSMENT AND PLAN: A discharge summary was dictated yesterday. Conditions including left humerus fracture, left 5th and 7th rib fractures, profound weakness, hypertension, diabetes, hyperlipidemia and hypercalcemia were addressed. Each of these were reviewed again today. No significant changes to the plan have been made. Medications were also reviewed. No changes in this regard were made. DISPOSITION: The patient will be discharged to [facility]. Home health and physical therapy has been arranged. I anticipate the patient to recover and ultimately return home. I have discussed in detail the importance of planning ahead and taking extra safety precautions at home. cc: Jorge Page MD
== END 2019-05-01 15:59 | DRG 563 ==
LOC: SUPCPDRO → ED 17:44 → OBSVTOIN 21:06 → INTOOBSV 21:06 → 3N 21:06 → SUATTDRO 21:06 → 4N 21:11
PROVIDERS: ADMIT Internal Medicine; ATTEND Internal Medicine